=== PATIENT | male | born 1970 | race Caucasian/White ===

== ENCOUNTER 2019-10-08 03:25 | Emergency (ER) | payer MEDICAID, SELFPAY ==
[2019-10-08 03:41] VITALS: BP 125/87; PULSE 71; RESP 16; TEMP 36.6; O2SAT 96; BMI 29.5
[2019-10-08 03:50] VITALS: BMI 29.5
--- NOTE | 2019-10-08 03:51 | CT_ITS ---
PROCEDURE: CT LUMBAR SPINE WO CON CLINICAL HISTORY: numbness Bilateral lower extremity weakness with low back pain and bilateral lower extremity numbness COMPARISON: W CT LUMBAR SPINE W/O CONTRAST from 09/01/2014 TECHNIQUE: Axial images obtained with sagittal and coronal reformats. All CT scans at the facility use one or more dose reduction, viz: automated exposure control, ma/kV adjustment per patient size (including targeted exams where dose is matched to indication, i.e. head), or iterative reconstruction technique. FINDINGS: There is an old T12 compression fracture with degenerative disc disease at T11-T12 and T12-L1 Mild wedging of L2 which appears chronic mild bulging disc L2-L3 Bulging disc at L3-L4 with facet ligamentum hypertrophy with mild bilateral foraminal narrowing and mild bilateral lateral recess narrowing. L4-5: Mild concentric bulging disc with facet ligamentum hypertrophy with mild bilateral lateral recess and foraminal narrowing. L5-S1: Bulging disc with small left paracentral disc protrusion There is partial fusion of the SI joints IMPRESSION: 1. No acute finding. 2. Old healed T12 compression fracture with degenerative changes at T11-T12 and T12-L1 an old mild compression fracture of L2 3. No severe canal stenosis. 4. MRI may provide further evaluation Dictated by: Agus Caal MD 10/08/2019 08:42 Electronically signed by Agus Caal MD in [facility] 10/08/2019 08:42
--- NOTE | 2019-10-08 03:51 | XR_ITS ---
PROCEDURE: XR PELVIS 1-2V CLINICAL INDICATION: numbness Bilateral lower extremity numbness COMPARISON: No exams were available for comparison TECHNIQUE: XR Pelvis AP View FINDINGS: No fracture or dislocation is evident. No significant degenerative change. No lytic or blastic change. IMPRESSION: No acute findings. Dictated by: Agus Caal MD 10/08/2019 06:36 Electronically signed by Agus Caal MD in [facility] 10/08/2019 06:36
--- NOTE | 2019-10-08 03:51 | CT_ITS ---
PROCEDURE: CT HEAD/BRAIN WO CON CLINICAL INDICATION: numbness Bilateral lower extremity weakness and numbness COMPARISON: [facility] CT HEAD W/O CONTRAST from 09/01/2014 TECHNIQUE: Axial images obtained. All CT scans at the facility use one or more dose reduction, viz: automated exposure control, ma/kV adjustment per patient size (including targeted exams where dose is matched to indication, i.e. head), or iterative reconstruction technique. FINDINGS: No midline shift, mass effect, intracranial hemorrhage, hydrocephalus, or extra-axial fluid collection is evident. The calvarium has an unremarkable appearance. No mastoid effusion. No sinus air-fluid level. IMPRESSION: No acute intracranial finding Dictated by: Agus Caal MD 10/08/2019 08:24 Electronically signed by Agus Caal MD in [facility] 10/08/2019 08:24
--- NOTE | 2019-10-08 03:51 | CT_ITS ---
PROCEDURE: CT THORACIC SPINE WO CON CLINICAL HISTORY: numbness Bilateral lower extremity weakness COMPARISON: CTA CTA-CHEST from 12/14/2014 TECHNIQUE: Axial images obtained with sagittal and coronal reformats. All CT scans at the facility use one or more dose reduction, viz: automated exposure control, ma/kV adjustment per patient size (including targeted exams where dose is matched to indication, i.e. head), or iterative reconstruction technique. FINDINGS: Normal alignment. Chronic compression fracture of T12 with degenerative disc disease at T11-T12 No acute fracture. No canal stenosis. There is some facet hypertrophy with foraminal narrowing on the left at T10-T11 IMPRESSION: No acute finding Chronic compression fracture T12 with degenerative disc disease T11-T12 Facet hypertrophy with foraminal narrowing on the left at T10-T11 Dictated by: Agus Caal MD 10/08/2019 08:36 Electronically signed by Agus Caal MD in [place] 10/08/2019 08:36
--- NOTE | 2019-10-08 03:51 | CT_ITS ---
PROCEDURE: CT CERVICAL SPINE WO CON CLINICAL INDICATION: numbness Bilateral lower extremity weakness and numbness COMPARISON: [facility] CT CERVICAL SPINE W/O CONT from 09/01/2014 TECHNIQUE: Axial images obtained with sagittal and coronal reformats. All CT scans at the facility use one or more dose reduction, viz: automated exposure control, ma/kV adjustment per patient size (including targeted exams where dose is matched to indication, i.e. head), or iterative reconstruction technique. Axial spiral CT scanning performed of the cervical spine beginning at the base of the skull and continuing to the upper T-spine. 3-D multiplanar reconstruction with 3-D manipulation of volumetric data set in image rendering was completed by the radiologist and/or technologist with the supervision of the radiologist on independent workstation. FINDINGS: There is straightening/reversal of the normal lordosis which may be due to patient positioning or muscle spasm.. There is degenerative disc disease at C6-C7 with endplate hypertrophic change and borderline canal stenosis. There is mild foraminal narrowing on the left at C4-C5 no fracture or dislocation. Lung apices are clear. IMPRESSION: 1. Mild cervical spondylosis. 2. Borderline canal stenosis at C6-C7 Dictated by: Agus Caal MD 10/08/2019 08:30 Electronically signed by Agus Caal MD in [place] 10/08/2019 08:30
[2019-10-08 04:07] LABS: Basophils # 0.1 K/mm3 (0-0.2); Basophils % 0.6 % (0.1-2.0); Eosinophils % 0.3 % (0.1-12.0); Hematocrit 46.1 % (42.0-52.0); Hemoglobin 15.2 g/dL (14.1-18.0); Lymphocytes # 1.4 K/mm3 (0.7-4.5); Lymphocytes % 17.6 % (10-50); Mean Corpuscular Hemoglobin 30.2 pg (27.0-31.2); Mean Corpuscular Volume 91.5 fl (80-94); Mean Platelet Volume 9.7 fl (7.4-10.4); Monocytes # 0.4 K/mm3 (0.1-1.0); Monocytes % 4.7 % (1.7-9.3); Neutrophils # 6.3 K/mm3 (1.8-7.8); Neutrophils % 76.8 % (37.0-80.0); Platelet Count 195 K/mm3 (142-424); Red Blood Count 5.04 M/mm3 (4.60-6.20); Red Cell Distribution Width 13.6 % (11.5-17.5); White Blood Count 8.2 K/mm3 (4.8-10.8)
[2019-10-08 04:09] LABS: Alanine Aminotransferase 55 U/L (12-78); Albumin Level 5.2 g/dl (3.5-5.0); Albumin/Globulin Ratio 1.2 (1.1-1.8); Alkaline Phosphatase 74 U/L (38-126); Anion Gap 13.1 mEq/L (5-15); Aspartate Amino Transferase 89 U/L (17-59); Bilirubin,Total 0.8 mg/dl (0.2-1.3); Blood Urea Nitrogen 17 mg/dl (9-20); Calcium 10.2 mg/dl (8.4-10.2); Carbon Dioxide 32 mmol/L (22.0-30.0); Chloride 94 mmol/L (98-107); Creatinine Clearance Estimated 113 mL/min (50-200); Estimated Glomerular Filt Rate 79 ml/min (>60); GFR (African American) 96 ML/MIN (>60); Globulin 4.4 g/dL (1.3-3.2); Glucose 134 mg/dl (74-100); Potassium 4.1 mmoL/L (3.5-5.1); Sodium 135 mmol/L (136-145); Total Protein,Serum 9.6 g/dl (6.3-8.2)
--- NOTE | 2019-10-08 04:11 | PC.NURSE ---
sent to rad
--- NOTE | 2019-10-08 04:47 | PC.NURSE ---
back from rad
--- NOTE | 2019-10-08 04:53 | PC.NURSE ---
received head,cspine and t spine at this time. lspine following.
--- NOTE | 2019-10-08 04:54 | PC.NURSE ---
notified of ct results being back
--- NOTE | 2019-10-08 05:02 | HMH.EDBACK ---
ED Disposition Clinical Impression: Cauda equina syndrome Disposition: Home, Self-Care Condition on Discharge: Serious Instructions: Cauda Equina Syndrome Additional Instructions: need to go to for eval Prescriptions: predniSONE [Prednisone 20mg Tab] 20 mg PO BID #10 tab Transmission Status: Pending to [id number] Ketorolac Tromethamine [Toradol 10mg tablet] 10 mg PO Q6H 5 Days #10 tab [facility]: [facility] Referrals: Provider,Referral, [Primary Care Provider] - - Critical Care Critical Care Time: No Attestation: On 10/08/19, the high probability of a clinically significant, sudden or life threatening deterioration of the following system(s) required my full and direct attention, intervention and personal management. The time I documented below is in addition to time spent performing reported procedures but includes the following listed in this critical care notation. Medical Decision Making - Medical Records Medical records reviewed: Yes: I reviewed the patient's medical records. - Baljeet Inquiry Pt receiving controlled substance: No Vital Signs: 10/08/19 03:41 10/08/19 05:06 Temperature 97.9 F Temperature Source Oral Pulse Rate [Right Brachial] 71 48 L Respiratory Rate 16 Blood Pressure [Right Arm] 125/87 124/70 Blood Pressure Mean [Right Arm] 99 88 Blood Pressure Source [Right Arm] Automatic Cuff Automatic Cuff Blood Pressure Position [Right Arm] Sitting Sitting 02 Sat by Pulse Oximetry 96 95 Oxygen Delivery Method Room Air Room Air - Lab Data Lab results reviewed: Yes: I reviewed the patient's lab results. Lab Results 10/08/19 03:45: WBC 8.2, RBC 5.04, Hgb 15.2, Hct 46.1, MCV 91.5, MCH 30.2, MCHC 33.0, RDW 13.6, Plt Count 195, MPV 9.7, Neut % (Auto) 76.8, Lymph % (Auto) 17.6, [place] % (Auto) 4.7, Eos % (Auto) 0.3, Baso % (Auto) 0.6, Neut # (Auto) 6.3, Lymph # (Auto) 1.4, [place] # (Auto) 0.4, Eos # (Auto) 0.0, Baso # (Auto) 0.1 10/08/19 03:45: Sodium 135 L, Potassium 4.1, Chloride 94 L, Carbon Dioxide 32 H, Anion Gap 13.1, BUN 17, Creatinine 1.00, Estimated Creat Clear 113, Estimated GFR 79, Est GFR ( Amer) 96, Glucose 134 H, Calcium 10.2, Total Bilirubin 0.8, AST 89 H, ALT 55, Alkaline Phosphatase 74, Total Protein 9.6 H, Albumin 5.2 H, Globulin 4.4 H, Albumin/Globulin Ratio 1.2 Result diagrams: 10/08/19 03:45 10/08/19 03:45 Orders (Tests/Meds): ED MEDICATIONS Generic Name Dose Route Start Last Admin Trade Name Freq PRN Reason Stop Dose Admin Ketorolac Tromethamine 30 mg 10/08/19 05:21 Toradol 30mg/Ml Vial IV 10/08/19 05:22 ONCE ONE Methylprednisolone Sodium Succinate 125 mg 10/08/19 05:21 Solu-Medrol 125mg/2ml Vial IV 10/08/19 05:22 ONCE ONE ORDERS Category Date Time Status CT cervical spine wo con Stat Cat Scan 10/08/19 03:[address] head/brain wo con Stat Cat Scan 10/08/19 03:[address] lumbar spine wo con Stat Cat Scan 10/08/19 03:[address] thoracic spine wo con Stat Cat Scan 10/08/19 03:51 Taken XR pelvis 1-2V Stat Exams 10/08/19 03:51 Taken - Radiology Data #1 Image(s): Pelvis Image Reviewed: Yes I reviewed the patient's radiology image Preliminary Findings: Normal/NAD - CT Data CT Scan: Head, C-Spine, T-Spine, L-Spine Time Received: 05:[address] Reviewed: Yes: I have viewed the radiologist's interpretation Preliminary Findings: Normal/NAD (no def acute changes ) Back Pain HPI - General Chief Complaint: Back Pain/Injury Stated Complaint: numbness in bilateral legs, unable to walk Time Seen by Provider: 10/08/19 04:30 Mode of Arrival: Wheelchair Source of Information: Patient, Medical Record Limitations: No Limitations Description of Symptoms (Recalled from ER Triage Doc. by RN): Patient reports bilateral leg weakness/tingling that started about three hours ago. Patient reports this has happened a couple of times in the last couple months, last one bein
[2019-10-08 05:06] VITALS: BP 124/70; PULSE 48; O2SAT 95
[2019-10-08 05:30] VITALS: BP 133/89; PULSE 60; O2SAT 96
--- NOTE | 2019-10-08 05:35 | PC.NURSE ---
Patient refused transfer to [facility]
[2019-10-08 05:48] VITALS: BP 138/89; PULSE 62; RESP 16; TEMP 36.6; O2SAT 96
[2019-10-08 06:05] LABS: C-Reactive Protein 51.5 mg/L (0-4)
[2019-10-08 06:18] LABS: Erythrocyte Sedimentation Rate 8 mm/hr (0-15)
== END 2019-10-08 05:58 | disposition home or self-care (01) ==
PROVIDERS: Emergency Provider Emergency Medicine
DX: G83.4 Cauda equina syndrome (principal)
CPT/HCPCS: 70450; 72125; 72128; 72131; 72170; 80053; 85025; 85651; 86140; 96374; 96375; 99283

== ENCOUNTER 2020-09-24 14:08 | Emergency (ER) | payer BC, SELFPAY ==
[2020-09-24 14:10] VITALS: BP 129/93; PULSE 79; RESP 18; TEMP 36.9; O2SAT 97; BMI 28.8
--- NOTE | 2020-09-24 14:16 | HMH.EDGENADL ---
ED Disposition Clinical Impression: Transaminitis, Drug abuse Chest pain Qualifiers: Chest pain type: other chest pain Qualified Code(s): R07.89 - Other chest pain Disposition: Home, Self-Care Condition on Discharge: Good Additional Instructions: Call your PCP in the morning for follow-up appointment. Avoid illicit drugs. Return emergency department for chest pain, shortness of breath. Referrals: Sylvain Juarez MD [Primary Care Provider] - 09/25/20 8:30 am (Call your PCP for follow-up appointment.) - Critical Care Critical Care Time: No Attestation: On 09/24/20, the high probability of a clinically significant, sudden or life threatening deterioration of the following system(s) required my full and direct attention, intervention and personal management. The time I documented below is in addition to time spent performing reported procedures but includes the following listed in this critical care notation. Medical Decision Making - Medical Records Medical records reviewed: Yes: I reviewed the patient's medical records. - Baljeet Inquiry Pt receiving controlled substance: No Vital Signs: 09/24/20 14:10 Temperature 98.4 F Temperature Source Oral Pulse Rate [Right] 79 Respiratory Rate 18 Blood Pressure [Right Arm] 129/93 H Blood Pressure Mean [Right Arm] 105 Blood Pressure Source [Right Arm] Automatic Cuff Blood Pressure Position [Right Arm] Sitting 02 Sat by Pulse Oximetry 97 Oxygen Delivery Method Room Air - Lab Data Lab results reviewed: Yes: I reviewed the patient's lab results. Lab Results 09/24/20 14:52: WBC 10.8, RBC 4.88, Hgb 14.6, Hct 42.0, MCV 86.0, MCH 30.0, MCHC 34.8, RDW 13.4, Plt Count 161, MPV 8.8, Neut % (Auto) 75.0, Lymph % (Auto) 17.6, [place] % (Auto) 5.8, Eos % (Auto) 0.7, Baso % (Auto) 0.9, Neut # (Auto) 8.1 H, Lymph # (Auto) 1.9, [place] # (Auto) 0.6, Eos # (Auto) 0.1, Baso # (Auto) 0.1 09/24/20 14:52: Sodium 136, Potassium 4.5, Chloride 97 L, Carbon Dioxide 30, Anion Gap 13.5, BUN 18, Creatinine 0.70, Estimated Creat Clear 156, Estimated GFR 119, Est GFR ( Amer) 144, Glucose 110 H, Calcium 9.0, Total Bilirubin 1.5 H, AST 171 H, ALT 195 H, Alkaline Phosphatase 81, Troponin I < 0.01, Total Protein 8.4 H, Albumin 4.7, Globulin 3.7 H, Albumin/Globulin Ratio 1.3 09/24/20 15:00: Urine Color Yellow, Urine Appearance Clear, Urine pH 5.5, Ur Specific [place] 1.020, Urine Protein Negative, Urine Glucose (UA) Negative, Urine Ketones Negative, Urine Blood Negative, Urine Nitrate Negative, Urine Bilirubin Negative, Urine Urobilinogen 2.0, Ur Leukocyte Esterase Negative, Urine RBC None, Urine WBC Occasional, Ur Squamous Epith Cells Occasional, Urine Bacteria Trace Result diagrams: 09/24/20 14:52 09/24/20 14:52 Orders (Tests/Meds): ORDERS Category Date Time Status XR chest portable Stat Exams 09/24/20 15:51 Taken Hepatitis Panel (4) Stat Lab 09/24/20 14:52 Received - Radiology Data #1 Image(s): Chest Image Reviewed: Yes I reviewed the patient's radiology image Preliminary Findings: Normal/NAD - ECG Data Tracing #1 Normal sinus rhythm, 61 bpm, no ST elevation or depression, no ectopy, normal intervals. Interpreted by me at 1445. ECG initial impression date: 09/24/20 ECG initial impression time: 14:45 - JOSE Score for Non-Stemi Age of Patient: 50-59 years old Heart Rate: 70-89 bpm Systolic Blood Pressure: 120-139 mmhg Serum Creatinine: 0.40-0.79 mg/dl CHF [place] Class: I-No CHF Other Risk Factors: None Non-Stemi Risk Score: 88 Medical Decision Narrative: 49yo M eval with complaint of chest pain. Patient is asymptomatic currently. Differential diagnosis includes was not limited to: ACS/TX, PE, pneumonia, anxiety, cardiomyopathy secondary to drug use or infection. Routine cardiac evaluation has been initiated. Patient initially checked in with symptoms of syncope. He denies any complaint of that upon my evaluation. Patient was sent for a CT of his head but he dec
--- NOTE | 2020-09-24 14:43 | ECG_ITS ---
APPROVED REPORT Exam: Resting ECG HR:67 bpm ECG Measurements Heart Rate 67 AXES AR 192 P 57 QRSd 92 QRS 49 QT 422 T 52 QTc 445 Conclusion Normal sinus rhythm Normal ECG Electronically signed by : Vincent Kelly, 09/26/2020 17:40:22
--- NOTE | 2020-09-24 14:58 | PC.NURSE ---
pt refusing CT scan, ER aware
[2020-09-24 15:05] LABS: Basophils # 0.1 K/mm3 (0-0.2); Basophils % 0.9 % (0.1-2.0); Eosinophils # 0.1 K/mm3 (0.0-0.4); Eosinophils % 0.7 % (0.1-12.0); Hemoglobin 14.6 g/dL (14.1-18.0); Lymphocytes # 1.9 K/mm3 (0.7-4.5); Lymphocytes % 17.6 % (10-50); Mean Corpuscular HGB Conc 34.8 g/dL (31.8-35.4); Mean Platelet Volume 8.8 fl (7.4-10.4); Monocytes # 0.6 K/mm3 (0.1-1.0); Monocytes % 5.8 % (1.7-9.3); Neutrophils # 8.1 K/mm3 (1.8-7.8); Platelet Count 161 K/mm3 (142-424); Red Blood Count 4.88 M/mm3 (4.60-6.20); Red Cell Distribution Width 13.4 % (11.5-17.5); White Blood Count 10.8 K/mm3 (4.8-10.8)
[2020-09-24 15:05] LABS: Microscopic, Urine URINE MICROSCOPIC (MICROSCOPIC)
[2020-09-24 15:09] LABS: Chloride 97 mmol/L (98-107); Potassium 4.5 mmoL/L (3.5-5.1); Sodium 136 mmol/L (136-145)
[2020-09-24 15:11] LABS: Alanine Aminotransferase 195 U/L (12-78); Blood Urea Nitrogen 18 mg/dl (9-20); Creatinine Clearance Estimated 156 mL/min (50-200); Estimated Glomerular Filt Rate 119 ml/min (>60); GFR (African American) 144 ML/MIN (>60)
[2020-09-24 15:12] LABS: Albumin Level 4.7 g/dl (3.5-5.0); Albumin/Globulin Ratio 1.3 (1.1-1.8); Alkaline Phosphatase 81 U/L (38-126); Anion Gap 13.5 mEq/L (5-15); Aspartate Amino Transferase 171 U/L (17-59); Bilirubin,Total 1.5 mg/dl (0.2-1.3); Carbon Dioxide 30 mmol/L (22.0-30.0); Globulin 3.7 g/dL (1.3-3.2); Glucose 110 mg/dl (74-100); Total Protein,Serum 8.4 g/dl (6.3-8.2)
[2020-09-24 15:17] LABS: Appearance,Urine CLEAR (Clear); Bilirubin,Urine Negative (Negative); Blood, Urine Negative (Negative); Color,Urine YELLOW (Yellow); Glucose,Urine (UA) Negative (Negative); Ketones,Urine Negative (Negative); Leukocyte Esterase,Urine Negative (Negative); Nitrate,Urine Negative (Negative); PH,Urine 5.5 (5.0-8.5); Protein,Urine Negative (Negative)
[2020-09-24 15:26] LABS: Troponin I < 0.01 ng/ml (0.00-0.034)
--- NOTE | 2020-09-24 15:51 | XR_ITS ---
PROCEDURE: XR CHEST PORTABLE CLINICAL HISTORY: PAIN Chest pain COMPARISON: CR CXR CHEST(2 VIEWS-NOT PORTABLE) from 12/13/2014 CT CTAC CTA-CHEST from 12/14/2014 CR CXR CHEST(2 VIEWS-NOT PORTABLE) from 05/04/2015 FINDINGS: The cardiomediastinal silhouette and pulmonary vascularity are within normal limits. The lungs are clear without infiltrates, suspicious nodules, or pleural effusions. No acute bony abnormalities. IMPRESSION: No acute findings. Dictated by: Agus Caal MD 09/24/2020 17:06 Agus Caal MD in [facility] 09/24/2020 17:06
[2020-09-24 16:38] LABS: Bacteria,Urine Trace /lpf; Squamous Epithelial Cell,Urine Occasional #/hpf (0-5); WBC,Urine Occasional #/hpf (0-3)
[2020-09-24 16:46] VITALS: BP 152/96; PULSE 67; RESP 16; TEMP 36.7; O2SAT 98
[2020-09-26 09:13] LABS: Hep A Ab, IgM Negative (Negative); Hepatitis B Core Antibody IgM Negative (Negative); Hepatitis B Surface Antigen Negative (Negative); Hepatitis C Antibody >11.0 s/co ratio (0.0-0.9)
== END 2020-09-24 16:48 | disposition home or self-care (01) ==
PROVIDERS: Emergency Provider Family Medicine; PCP Emergency Medicine
DX: R42 Dizziness and giddiness (principal); R07.89 Other chest pain; R74.01 Elevation of levels of liver transaminase levels; F10.10 Alcohol abuse, uncomplicated; F19.10 Other psychoactive substance abuse, uncomplicated; F17.210 Nicotine dependence, cigarettes, uncomplicated
CPT/HCPCS: 71045; 80053; 80074; 81001; 84484; 85025; 93005; 99283

== ENCOUNTER 2020-10-24 08:56 | Emergency (ER) | payer BC, SELFPAY ==
--- NOTE | 2020-10-24 | FL_ITS ---
Fluoroscopy: Fluoroscopy was used to assist emergency room physician and removal of the remaining tiny opaque fragment of glass dorsal to the PIP joint ring finger. Fluoroscopic spot film following the procedure showed no foreign body remaining. Fluoroscopy time was 47 seconds. Dictated by: Dr. Remberto Bishop MD 10/24/2020 11:47 Dr. Remberto Bishop MD in [facility] 10/24/2020 11:47
[2020-10-24 09:02] VITALS: BP 137/84; PULSE 69; RESP 18; TEMP 36.8; O2SAT 95; BMI 28.8
--- NOTE | 2020-10-24 09:06 | XR_ITS ---
PROCEDURE: XR HAND RT 2V CLINICAL INDICATION: injury COMPARISON: CR XR HAND RT 2V from 10/24/2020 FINDINGS: No fracture or dislocation. No lytic or blastic change. There is normal mineralization. The joint spaces are well-preserved. There is focal soft tissue swelling dorsally the PIP joint of the 4th finger. There is a semiopaque foreign body just dorsal to the PIP. Carpal bones appear intact IMPRESSION: Semi opaque foreign body associated soft tissue swelling dorsal aspect 4th finger, no acute fracture seen Dictated by: Dr. Remberto Bishop MD 10/24/2020 10:13 Dr. Remberto Bishop MD in [facility] 10/24/2020 10:13
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
--- NOTE | 2020-10-24 09:46 | XR_ITS ---
PROCEDURE: XR HAND RT 2V CLINICAL INDICATION: repeat for glass COMPARISON: Right hand same date FINDINGS: The main fragment of the foreign body has been removed with tiny densities remain at the dorsal aspect of the PIP joint. IMPRESSION: Tiny fragment of foreign body remaining following attempted removal Dictated by: Dr. Remberto Bishop MD 10/24/2020 10:14 Dr. Remberto Bishop MD in [facility] 10/24/2020 10:14
--- NOTE | 2020-10-24 10:01 | XR_ITS ---
PROCEDURE: XR FINGER RT MIN 2V CLINICAL INDICATION: FB COMPARISON: CR XR HAND RT 2V from 10/24/2020 FINDINGS: On the 2nd attempt there is a small faint foreign body remaining along with the diffuse soft tissue swelling. IMPRESSION: Tiny fragment foreign body apparently due to class remaining after the 2nd attempt of removal Dictated by: Dr. Remberto Bishop MD 10/24/2020 10:20 Dr. Remberto Bishop MD in [facility] 10/24/2020 10:20
--- NOTE | 2020-10-24 10:36 | XR_ITS ---
PROCEDURE: XR FINGER RT MIN 2V CLINICAL INDICATION: removal of glass COMPARISON: Right hand and earlier attempts at foreign body removal same date FINDINGS: The same 2 tiny semiopaque fragments of glass remain unchanged the previous studies. Focal soft tissue swelling is again noted. There is no underlying bony IMPRESSION: Two persistent tiny fragments of glass remaining after additional attempted foreign body removal Dictated by: Dr. Remberto Bishop MD 10/24/2020 10:48 Dr. Remberto Bishop MD in [facility] 10/24/2020 10:48
--- NOTE | 2020-10-24 10:57 | PC.NURSE ---
Called office which is off for the time being. States that he will return this afternoon for pt care. notified
[2020-10-24 10:58] VITALS: BP 118/65; PULSE 83; RESP 18; O2SAT 100
--- NOTE | 2020-10-24 11:00 | PC.NURSE ---
Pt with MD to radiology for fluro to remove glass particles from finger. CPD present with pt
[2020-10-24 11:52] VITALS: BP 156/77; PULSE 58; RESP 16; TEMP 36.6; O2SAT 97
--- NOTE | 2020-10-30 10:58 | PC.NURSE ---
attempted to call pt at number listed on chart, wrong number per person that answered.
--- NOTE | 2020-10-30 11:19 | PC.NURSE ---
attempted to call the other number listed on pts chart, no answer and no voicemail.
== END 2020-10-24 11:55 ==
PROVIDERS: Emergency Provider Emergency Medicine
DX: S61.244A Puncture wound with foreign body of right ring finger without damage to nail, initial encounter (principal); W22.8XXA Striking against or struck by other objects, initial encounter; Y92.69 Other specified industrial and construction area as the place of occurrence of the external cause; Y99.0 Civilian activity done for income or pay; Z23 Encounter for immunization
CPT/HCPCS: 20520; 73120; 73140; 76000; 87070; 87077; 87186; 87205; 90715; 99283

== ENCOUNTER 2020-12-04 09:44 | Emergency (ER) | payer BC, SELFPAY ==
--- NOTE | 2020-12-04 09:35 | ECG_ITS ---
APPROVED REPORT Exam: Resting ECG HR:53 bpm ECG Measurements Heart Rate 53 AXES IA 194 P 55 QRSd 90 QRS 87 QT 456 T 56 QTc 427 Conclusion Sinus bradycardia Otherwise normal ECG Electronically signed by : Vincent Kelly MD 12/05/2020 17:44:47
[2020-12-04 09:45] VITALS: RESP 14; TEMP 36.8; O2SAT 96; BMI 27.3
--- NOTE | 2020-12-04 10:04 | XR_ITS ---
PROCEDURE: XR CHEST PORTABLE CLINICAL HISTORY: chest pain COMPARISON: CR CXR CHEST(2 VIEWS-NOT PORTABLE) from 12/13/2014 CT [facility]AC CTA-CHEST from 12/14/2014 CR CXR CHEST(2 VIEWS-NOT PORTABLE) from 05/04/2015 CR XR CHEST PORTABLE from 09/24/2020 FINDINGS: The cardiomediastinal silhouette and pulmonary vascularity are within normal limits. The lungs are clear without infiltrates, suspicious nodules, or pleural effusions. No acute bony abnormalities. IMPRESSION: No acute findings. Dictated by: Agus Caal MD 12/04/2020 12:04 Agus Caal MD in [facility] 12/04/2020 12:04
[2020-12-04 10:13] LABS: Basophils # 0.1 K/mm3 (0-0.2); Basophils % 1.7 % (0.1-2.0); Eosinophils # 0.3 K/mm3 (0.0-0.4); Hematocrit 46.6 % (42.0-52.0); Hemoglobin 15.4 g/dL (14.1-18.0); Lymphocytes # 1.6 K/mm3 (0.7-4.5); Lymphocytes % 31.6 % (10-50); Mean Corpuscular Hemoglobin 30.6 pg (27.0-31.2); Mean Corpuscular Volume 92.7 fl (80-94); Mean Platelet Volume 9.7 fl (7.4-10.4); Monocytes # 0.5 K/mm3 (0.1-1.0); Monocytes % 9.1 % (1.7-9.3); Neutrophils # 2.6 K/mm3 (1.8-7.8); Neutrophils % 52.7 % (37.0-80.0); Platelet Count 191 K/mm3 (142-424); Red Blood Count 5.03 M/mm3 (4.60-6.20); Red Cell Distribution Width 13.9 % (11.5-17.5); White Blood Count 4.9 K/mm3 (4.8-10.8)
[2020-12-04 10:19] LABS: Chloride 104 mmol/L (98-107); Potassium 3.9 mmoL/L (3.5-5.1); Sodium 138 mmol/L (136-145)
[2020-12-04 10:21] LABS: Alanine Aminotransferase 184 U/L (12-78); Aspartate Amino Transferase 147 U/L (17-59); Blood Urea Nitrogen 8 mg/dl (9-20); Creatinine Clearance Estimated 171 mL/min (50-200); Estimated Glomerular Filt Rate 141 ml/min (>60); GFR (African American) 171 ML/MIN (>60)
[2020-12-04 10:22] LABS: Albumin Level 4.2 g/dl (3.5-5.0); Albumin/Globulin Ratio 1.2 (1.1-1.8); Alkaline Phosphatase 75 U/L (38-126); Anion Gap 12.9 mEq/L (5-15); Bilirubin,Total 0.6 mg/dl (0.2-1.3); Calcium 8.9 mg/dl (8.4-10.2); Carbon Dioxide 25 mmol/L (22.0-30.0); Globulin 3.6 g/dL (1.3-3.2); Glucose 130 mg/dl (74-100); Magnesium 1.7 mg/dl (1.6-2.3); Phosphorous 2.7 mg/dl (2.5-4.5); Total Protein,Serum 7.8 g/dl (6.3-8.2)
[2020-12-04 10:35] LABS: Troponin I < 0.01 ng/ml (0.00-0.034)
--- NOTE | 2020-12-04 10:58 | PC.NURSE ---
Patient asked how much longer it would be. I explained to him we have to redraw his troponin at the 3 hour jesus to trend them and ensure he isn't having a NSTEMI. Patient stated, 3 hours? I dont have time for that. I have bills i need to go pay and things to do today. I have to leave. I confirmed the patient knew the risks of signing out and that he could be having a cardiac event that would only show up on the lab work at the 3 hour jesus. Patient advised he knows and wants the AMA paperwork. Patient signed out AMA.
[2020-12-04 11:31] VITALS: BP 00/00; PULSE 0; RESP 0; TEMP -17.7; TEMP 0; O2SAT 0
== END 2020-12-04 11:00 | disposition left against medical advice (07) ==
PROVIDERS: Emergency Provider Emergency Medicine
DX: Z53.21 Procedure and treatment not carried out due to patient leaving prior to being seen by health care provider (principal)
CPT/HCPCS: 71045; 80053; 83735; 84100; 84484; 85025; 93005; 99283

== ENCOUNTER 2021-12-02 18:10 | Emergency (ER) | payer BC, SELFPAY ==
[2021-12-02 18:23] VITALS: BMI 27.3
--- NOTE | 2021-12-02 18:23 | PC.NURSE ---
pt waiting in lobby on available bed in ER, pt verbalized understanding
[2021-12-02 19:32] VITALS: BP 0/0; PULSE 0; RESP 0; TEMP -17.7; TEMP 0
== END 2021-12-02 19:39 | disposition left against medical advice (07) ==
LOC: ER 19:38
PROVIDERS: Emergency Provider Emergency Medicine; PCP Family Medicine
DX: Z53.21 Procedure and treatment not carried out due to patient leaving prior to being seen by health care provider (principal)

== ENCOUNTER 2022-11-25 11:08 | Emergency (ER) | payer BC, SELFPAY ==
--- NOTE | 2022-11-25 11:07 | ECG_ITS ---
APPROVED REPORT Exam: Resting ECG HR:62 bpm ECG Measurements Heart Rate 62 AXES MA 201 P 68 QRSd 96 QRS 51 QT 435 T 58 QTc 441 Conclusion SINUS RHYTHM NORMAL ECG UNCONFIRMED REPORT Electronically signed by : Vincent Kelly MD 11/25/2022 19:41:13
[2022-11-25 11:10] VITALS: BP 115/96; PULSE 63; RESP 20; TEMP 36.8; O2SAT 98; BMI 28.8
--- NOTE | 2022-11-25 11:30 | XR_ITS ---
PROCEDURE INFORMATION: Exam: XR Chest Exam date and time: 11/25/2022 11:44 AM Age: 51 years old Clinical indication: Dyspnea TECHNIQUE: Imaging protocol: Radiologic exam of the chest. Views: 1 view. COMPARISON: CR XR CHEST PORTABLE 12/04/2020 10:17 AM FINDINGS: Lungs: Unremarkable. No consolidation. Pleural spaces: Unremarkable. No pleural effusion. No pneumothorax. Heart/Mediastinum: Unremarkable. No cardiomegaly. Bones/joints: Unremarkable for age. IMPRESSION: Negative chest exam.
[2022-11-25 11:31] VITALS: BP 121/67; PULSE 60; O2SAT 96
--- NOTE | 2022-11-25 11:31 | HMH.EDGENADL ---
Discharge Plan Disposition Patient Disposition: Home, Self-Care Prescriptions Prescriptions: No Action prednisone 20 MG tablet 20 mg PO BID Qty: 10 0RF ketorolac 10 MG tablet 10 mg PO Q6H 5 Days Qty: 10 0RF ibuprofen 800 MG tablet 800 mg PO Q8HP PRN (Reason: Moderate Pain) Qty: 15 0RF cephalexin 500 MG capsule 500 mg PO Q6H Qty: 28 0RF Referrals Follow up/Referrals: Sylvain Juarez MD [Primary Care Provider] - See instructions Activity Restrictions/Add. Instructions Additional Instructions/Restrictions: Please follow-up with your primary care doctor regarding your chest pain and shortness of breath. You did have chronic transaminase elevation and a known diagnosis of hepatitis C. Given fib 4 score of 5.36 which suggests advanced fibrosis and it is very important you follow-up with a retail area manager or survey project manager to get your hepatitis C treated and to have a further surveillance of your liver fibrosis. Clinical Impressions Clinical Impression: Dyspnea, Atypical chest pain, Transaminitis, HCV (hepatitis C virus), Fibrosis of liver Discharge ED Provider: Minnie Kelly General Adult HPI General Chief complaint: Chest Pain Stated complaint: Chest Pain, SOA Time Seen by Provider: 11/25/22 11:19 Mode of Arrival: Ambulatory Source of Information: Patient Limitations: No Limitations Description of Symptoms (Recalled from ER Triage Doc. by RN): pt to ed c/o center chest pain that started this morning. pt reports the pain is squeezing in nature. pt denies n/v/d. History of Present Illness HPI narrative: 51-year-old male here with chest pain and shortness of breath. Tells me he was here visiting his mother in the hospital and he states that he has been having some chest discomfort and dyspnea over the last 2 to 3 days and decided to get checked out. Denies any exertional component any radiation any nausea and diaphoresis associated with this. No history of heart or lung disease that he is aware of. Does have an extensive history of smoking but stopped smoking 2 weeks ago. No wheezing cough fevers chills. No lower extremity edema PND orthopnea. No history of congestive heart failure. Only other symptom that he endorses some fatigue. Related Data Previous Rx's Medication Instructions Recorded ketorolac 10 mg tablet 10 mg PO Q6H 5 days #10 tabs 10/08/19 prednisone 20 mg tablet 20 mg PO BID #10 tabs 10/08/19 cephalexin 500 mg capsule 500 mg PO Q6H #28 caps 10/24/20 ibuprofen 800 mg tablet 800 mg PO Q8HP PRN Moderate Pain 10/24/20 #15 tabs Allergies Allergy/AdvReac Type Severity Reaction Status Date / Time No Known Allergies Allergy Verified 10/08/19 03:57 [facility] Disclaimer: The information contained in this section may have been updated after the patient was seen, as this information can be updated by other users. Social History Smoking Status: Current every day smoker tobacco type: cigarettes packs per day: 2 alcohol intake: never current occupational status: employed Travel in the last 8 weeks: None ROS Obtained: Yes All systems reviewed & no additional complaints except as documented Physical Exam General General appearance: alert and in no apparent distress Respiratory Respiratory exam: Present normal lung sounds bilaterally Cardiovascular Cardiovascular exam: Present regular rate; Absent tachycardia Neurological Exam Neurological exam: Present alert and oriented X3 Medical Decision Making Baljeet Inquiry Pt receiving controlled substance: No Vital Signs: 11/25/22 11:10 11/25/22 11:31 11/25/22 12:00 Temperature 98.3 F Temperature Source Oral Pulse Rate 60 62 Pulse Rate [Left Radial] 63 Respiratory Rate 20 Blood Pressure 121/67 125/83 Blood Pressure [Right Arm] 115/96 H Blood Pressure Mean 85 97 Blood Pressure Mean [Right Arm] 102 02 Sat by Pulse Oximetry 98 96 98 Oxygen Delivery Method Room Air 11/25/22 12:31 11/25/22
[2022-11-25 11:42] LABS: Basophils # 0.1 K/mm3 (0-0.2); Basophils % 1.8 % (0.1-2.0); Eosinophils # 0.3 K/mm3 (0.0-0.4); Hematocrit 48.2 % (42.0-52.0); Hemoglobin 15.6 g/dL (14.1-18.0); Lymphocytes # 1.7 K/mm3 (0.7-4.5); Lymphocytes % 34.4 % (10-50); Mean Corpuscular HGB Conc 32.4 g/dL (31.8-35.4); Mean Corpuscular Hemoglobin 30.7 pg (27.0-31.2); Mean Corpuscular Volume 94.6 fl (80-94); Mean Platelet Volume 10.1 fl (7.4-10.4); Monocytes # 0.5 K/mm3 (0.1-1.0); Monocytes % 9.5 % (1.7-9.3); Neutrophils # 2.4 K/mm3 (1.8-7.8); Neutrophils % 48.4 % (37.0-80.0); Platelet Count 130 K/mm3 (142-424); Red Blood Count 5.09 M/mm3 (4.60-6.20); Red Cell Distribution Width 13.4 % (11.5-17.5)
[2022-11-25 11:47] LABS: Chloride 102 mmol/L (98-107); Potassium 4.1 mmoL/L (3.5-5.1); Sodium 140 mmol/L (136-145)
[2022-11-25 11:49] LABS: Alanine Aminotransferase 229 U/L (12-78); Aspartate Amino Transferase 199 U/L (17-59); Blood Urea Nitrogen 13 mg/dl (9-20); Creatinine Clearance Estimated 153 mL/min (50-200); Estimated Glomerular Filt Rate 118 ml/min (>60); GFR (African American) 143 ML/MIN (>60)
[2022-11-25 11:50] LABS: Albumin Level 4.2 g/dl (3.5-5.0); Alkaline Phosphatase 82 U/L (38-126); Anion Gap 14.1 mEq/L (5-15); Bilirubin,Total 0.9 mg/dl (0.2-1.3); Calcium 9.3 mg/dl (8.4-10.2); Carbon Dioxide 28 mmol/L (22.0-30.0); Globulin 4.2 g/dL (1.3-3.2); Glucose 106 mg/dl (74-100); Total Protein,Serum 8.4 g/dl (6.3-8.2)
[2022-11-25 11:57] LABS: D-Dimer 0.31 ug/mL (0.0-0.5)
[2022-11-25 12:00] VITALS: BP 125/83; PULSE 62; O2SAT 98
[2022-11-25 12:00] LABS: NT Pro Brain Natriuretic Pep. 131 pg/mL (0-125)
[2022-11-25 12:02] LABS: Troponin I < 0.01 ng/ml (0.00-0.034)
[2022-11-25 12:31] VITALS: BP 126/75; PULSE 55; RESP 11; O2SAT 97
[2022-11-25 13:00] VITALS: BP 130/73; PULSE 57; O2SAT 95
[2022-11-25 13:15] VITALS: BP 129/74; PULSE 61; RESP 20; TEMP 36.8; O2SAT 97
== END 2022-11-25 13:15 | disposition home or self-care (01) ==
PROVIDERS: Emergency Provider Student in an Organized Health Care Education/Training Program; PCP Emergency Medicine
DX: R07.9 Chest pain, unspecified (principal); R06.02 Shortness of breath; B19.20 Unspecified viral hepatitis C without hepatic coma; K74.00 Hepatic fibrosis, unspecified; F17.210 Nicotine dependence, cigarettes, uncomplicated
CPT/HCPCS: 71045; 80053; 83880; 84484; 85025; 85378; 93005; 99285

== ENCOUNTER 2022-12-16 21:11 | Emergency (ER) | payer BC, SELFPAY ==
[2022-12-16 21:24] VITALS: BP 124/64; PULSE 64; RESP 16; TEMP 36.8; O2SAT 98; BMI 28.8
--- NOTE | 2022-12-16 21:43 | HMH.EDGENADL ---
Discharge Plan Disposition Patient Disposition: Home, Self-Care Condition: Good Prescriptions Prescriptions: New sulfamethoxazole-trimethoprim [Bactrim DS] 800-160 mg tablet 1 tab PO BID 14 Days Qty: 28 0RF No Action prednisone 20 MG tablet 20 mg PO BID Qty: 10 0RF ketorolac 10 MG tablet 10 mg PO Q6H 5 Days Qty: 10 0RF ibuprofen 800 MG tablet 800 mg PO Q8HP PRN (Reason: Moderate Pain) Qty: 15 0RF cephalexin 500 MG capsule 500 mg PO Q6H Qty: 28 0RF Referrals Follow up/Referrals: Provider,Referral, MD [Primary Care Provider] - See instructions Activity Restrictions/Add. Instructions Additional Instructions/Restrictions: You were evaluated in the emergency department today. 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 Follow-up with your primary care provider over the next 3 days for reassessment. Return to the emergency department for new or worsening symptoms. Clinical Impressions Clinical Impression: Abdominal abscess Instructions Patient Instructions: DI for Skin Abscess Discharge ED Provider: Vero Leal General Adult HPI General Chief complaint: Skin/Abscess/Foreign Body Stated complaint: Bite by spider infected Time Seen by Provider: 12/16/22 21:28 Mode of Arrival: Ambulatory Source of Information: Patient Limitations: No Limitations Description of Symptoms (Recalled from ER Triage Doc. by RN): pt states he has a spider bit on his abd. pt reports he thinks it was a brown recluse but did not see the spider. the area is on his LLQ with erythema, edema, and purulent drainage. pt reports x5d. pt was seen at a [facility] on Dec.09 for the same thing. History of Present Illness HPI narrative: This patient is a 52-year-old male with a history of hepatitis C and drug abuse presenting to the emergency department for evaluation with concern for spider bite to his left lower quadrant of his abdomen. He states that he has had erythema, edema, and purulent drainage. This has been going on for 5 days. On chart review, the patient was seen at [facility] on 12/09/2022 for similar issues. He states that he was prescribed Keflex, which he has been compliant with, however it has not gotten any better. He denies any systemic symptoms, such as fevers, chills, or other concerns. Related Data Previous Rx's Medication Instructions Recorded ketorolac 10 mg tablet 10 mg PO Q6H 5 days #10 tabs 10/08/19 prednisone 20 mg tablet 20 mg PO BID #10 tabs 10/08/19 cephalexin 500 mg capsule 500 mg PO Q6H #28 caps 10/24/20 ibuprofen 800 mg tablet 800 mg PO Q8HP PRN Moderate Pain 10/24/20 #15 tabs sulfamethoxazole 800 1 tab PO BID 14 days #28 tabs 12/16/22 mg-trimethoprim 160 mg tablet (Bactrim DS) Allergies Allergy/AdvReac Type Severity Reaction Status Date / Time No Known Allergies Allergy Verified 10/08/19 03:57 [facility] Disclaimer: The information contained in this section may have been updated after the patient was seen, as this information can be updated by other users. Social History Smoking Status: Current every day smoker tobacco type: cigarettes packs per day: 2 alcohol intake: never current occupational status: employed Travel in the last 8 weeks: None ROS Obtained: Yes All systems reviewed & no additional complaints except as documented Physical Exam General General appearance: alert and in no apparent distress Head Head exam: atraumatic and normocephalic Eye Eye exam: Present normal appearance, PERRL and EOMI ENT ENT exam: Present normal exam, normal oropharynx, mucous membranes moist and normal external ear exam Neck Neck exam: Present normal inspection, full ROM and trachea midline; Absent tenderness Chest Chest inspection: Present normal inspection and symmetric chest wall rise; Absent tenderness Respirat
[2022-12-16 21:48] VITALS: BP 129/74; PULSE 60; RESP 20; TEMP 36.6
== END 2022-12-16 21:50 | disposition home or self-care (01) ==
PROVIDERS: Emergency Provider Emergency Medicine
DX: L02.211 Cutaneous abscess of abdominal wall (principal); S30.861S Insect bite (nonvenomous) of abdominal wall, sequela; W57.XXXS Bitten or stung by nonvenomous insect and other nonvenomous arthropods, sequela; F17.210 Nicotine dependence, cigarettes, uncomplicated; B19.20 Unspecified viral hepatitis C without hepatic coma
CPT/HCPCS: 99284

== ENCOUNTER → 2022-12-29 01:10 | Outpatient (CLI) | payer BC, SELFPAY | PROVIDERS: PCP Nurse Practitioner Family; Visit Provider Nurse Practitioner Family | DX: R05.9 Cough, unspecified (principal); R09.89 Other specified symptoms and signs involving the circulatory and respiratory systems; R53.83 Other fatigue | CPT/HCPCS: 87635 ==

== ENCOUNTER 2023-04-13 14:00 | Emergency (ER) | payer BC, SELFPAY ==
[2023-04-13 14:02] VITALS: BP 141/63; PULSE 50; RESP 18; TEMP 36.7; O2SAT 99; BMI 27.3
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
--- NOTE | 2023-04-13 14:31 | PC.NURSE ---
Pt returned from RAD
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
--- NOTE | 2023-04-13 15:50 | PC.NURSE ---
Rounded on pt. No needs voiced at this time. Call light within reach.
[2023-04-13 15:51] VITALS: BP 103/62; PULSE 53; O2SAT 97
[2023-04-13 16:23] VITALS: BP 110/68; PULSE 52; RESP 18; TEMP 36.7; O2SAT 99
== END 2023-04-13 16:24 | disposition home or self-care (01) ==
PROVIDERS: Emergency Provider Emergency Medicine
DX: M79.674 Pain in right toe(s) (principal); F17.210 Nicotine dependence, cigarettes, uncomplicated; V49.9XXA Car occupant (driver) (passenger) injured in unspecified traffic accident, initial encounter
CPT/HCPCS: 73630; 99283

== ENCOUNTER 2023-07-03 15:50 | Emergency (ER) | payer BC, SELFPAY ==
[2023-07-03 16:06] VITALS: BP 148/90; PULSE 62; RESP 16; TEMP 37.3; O2SAT 99; BMI 28.8
--- NOTE | 2023-07-03 16:17 | HMH.EDGENADL ---
Discharge Plan Disposition Patient Disposition: Home, Self-Care Condition: Good Prescriptions Prescriptions: New cephalexin 500 mg capsule 500 mg PO Q8H 10 Days Qty: 30 0RF sulfamethoxazole-trimethoprim [Bactrim DS] 800-160 mg tablet 1 tab PO Q12H 14 Days Qty: 28 0RF No Action buprenorphine-naloxone 8-2 mg tablet, sublingual 2 tab sublingual DAILY mupirocin 2 % ointment topical azithromycin [Zithromax Z-Wiliam] 250 mg tablet See Rx Instructions PO .COMPLEX Qty: 6 0RF Rx Instructions: For 250 mg dose pack: take 500 mg today (day 1), then 250 mg for 4 days (days 2-5) PO albuterol sulfate 90 mcg/actuation HFA aerosol inhaler 1 inh inhalation QID Qty: 6.7 1RF sulfamethoxazole-trimethoprim [Bactrim DS] 800-160 mg tablet 1 tab PO BID 14 Days Qty: 28 0RF ibuprofen 800 MG tablet 800 mg PO Q8HP PRN (Reason: Moderate Pain) Qty: 15 0RF Referrals Follow up/Referrals: Provider,Referral, MD [Primary Care Provider] - See instructions Activity Restrictions/Add. Instructions Additional Instructions/Restrictions: You were evaluated in the emergency department today. 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 You may also take Tylenol and ibuprofen at home as needed for pain. Follow-up closely with her primary care provider. Return to the emergency department for new or worsening symptoms. Clinical Impressions Clinical Impression: Abscess or cellulitis of hip Instructions Patient Instructions: DI for Cellulitis -- Adult, DI for Skin Abscess Discharge ED Provider: Vero Leal General Adult HPI General Stated complaint: left side/upper bottocks four red/inflamed spots Time Seen by Provider: 07/03/23 16:05 History of Present Illness HPI narrative: This patient is a 52-year-old male with history of hepatitis C and drug abuse presenting with concern for a swollen, red and painful area to his left hip right at his waistline. He notes that it has been bothering him for a few days. He also notes he has some healing wounds to his middle of his buttocks that started out the same way. He states he does not know if they are spider bites or what they could be. No fevers, chills, chest pain, shortness of breath, or other systemic symptoms. He notes that they did open up the wound on his left hip last night at his daughter's house and got some pus out of it. Related Data Home Medications Medication Instructions Recorded Confirmed buprenorphine 8 mg-naloxone 2 mg 2 tab sublingual DAILY 12/29/22 12/29/22 sublingual tablet mupirocin 2 % topical ointment topical 12/29/22 12/29/22 Previous Rx's Medication Instructions Recorded ibuprofen 800 mg tablet 800 mg PO Q8HP PRN Moderate Pain 10/24/20 #15 tabs sulfamethoxazole 800 1 tab PO BID 14 days #28 tabs 12/16/22 mg-trimethoprim 160 mg tablet (Bactrim DS) albuterol sulfate 90 mcg/actuation 1 inh inhalation QID #6.7 grams 12/29/22 aerosol inhaler azithromycin 250 mg tablet See Rx Instructions PO .COMPLEX #6 12/29/22 (Zithromax Z-Wiliam) tabs cephalexin 500 mg capsule 500 mg PO Q8H 10 days #30 caps 07/03/23 sulfamethoxazole 800 1 tab PO Q12H 14 days #28 tabs 07/03/23 mg-trimethoprim 160 mg tablet (Bactrim DS) Allergies Allergy/AdvReac Type Severity Reaction Status Date / Time No Known Allergies Allergy Verified 12/29/22 14:58 [facility] Disclaimer: The information contained in this section may have been updated after the patient was seen, as this information can be updated by other users. Medical History Fixation hardware in leg Family History Mother Diabetes Social History Smoking Status: Current every day smoker tobacco type: cigarettes packs per day: 2 alcohol intake: never current occupational status: employed Travel in the last 8 weeks: None ROS Obtained: Yes All systems reviewed & no additional complaints except as documented Physical Exam General General appearance: alert and in no apparent distress Head Head exam: atraumatic and normocephalic Eye Eye exam: Present normal appearance, PERRL and EOMI ENT ENT exam: Present normal exam, normal oropharynx, mucous membranes moist and normal external ear exam Neck Neck exam: Present normal inspection, full ROM and trachea midline; Absent tenderness Chest Chest inspection: Present normal inspection and symmetric chest wall rise; Absent tenderness Respiratory Respiratory exam: Present normal lung sounds bilaterally; Absent respiratory distress, wheezes, stridor or accessory muscle use Cardiovascular Cardiovascular exam: Present regular rate and normal rhythm Abdominal Exam Abdominal exam: Present soft; Absent distention, tenderness or guarding Extremities Exam Extremities exam: Present normal inspection, full ROM and normal capillary refill; Absent tenderness or edema Back Exam Back exam: Present normal inspection and full ROM; Absent tenderness Neurological Exam Neurological exam: Present alert, oriented X3, CN II-XII intact and normal gait; Absent motor sensory deficit Psychiatric Psychiatric exam: Present normal affect and normal mood Skin Skin exam: Present warm, dry and erythema (Erythema to the left hip surrounding a small area of induration with central open wound. Unable to express purulent drainage. No palpable fluctuance.) Expanded Skin Exam Type of lesion: Present abscess Body image: 1. Medical Decision Making Medical Records Medical records reviewed: Yes I reviewed the patient's medical records. Baljeet Inquiry Pt receiving controlled substance: No Lab Data Lab results reviewed: Yes I reviewed the patient's lab results. Orders (Tests/Meds): ED MEDICATIONS Discontinued Medications Generic Name Dose Route Start Last Admin Trade Name Freq PRN Reason Stop Dose Admin Ketorolac Tromethamine 30 mg 07/03/23 16:13 Ketorolac 30mg/Ml Vial IM 07/03/23 16:14 ONCE ONE Medical Decision Narrative: In summary, this patient is a 52-year-old male presenting to the Emergency Department for evaluation of painful red and warm swollen area to the left hip. Differential diagnoses considered include but are not limited to abscess, cellulitis, septic joint. Ruling out the most morbid conditions drove assessment. On exam, the patient is well-appearing. He has full range of motion of his joint with no significant joint pain to suggest septic joint. He has an area of induration with surrounding erythema and warmth as well as an overlying open wound that he reports was previously draining pus, however there is no for drainage or fluctuance at this time. I do not feel that the wound is amenable to drainage given the current presentation, however I do feel he requires antibiotics for treatment of cellulitis. He was given prescriptions for Keflex and Bactrim. He was given IM Toradol for pain control. At this time, he is to be appropriate for discharge. Strict return precautions were given as well as instructions for supportive management. Also given instructions for close way to follow. Patient was discharged after all questions were answered Critical Care Critical Care Time Critical Care Time: No
[2023-07-03] MEDS: KETOROLAC 30MG/ML VIAL 30 MG IM (16:29)
[2023-07-03 16:38] VITALS: BP 148/90; PULSE 62; RESP 16; TEMP 37.3; O2SAT 99
== END 2023-07-03 16:39 | disposition home or self-care (01) ==
PROVIDERS: Emergency Provider Emergency Medicine
DX: L03.116 Cellulitis of left lower limb (principal); F17.210 Nicotine dependence, cigarettes, uncomplicated; B19.20 Unspecified viral hepatitis C without hepatic coma
CPT/HCPCS: 96372; 99283

== ENCOUNTER 2024-10-15 18:27 | Inpatient (IN) | payer MEDICAID, SELFPAY ==
[2024-10-15] VITALS (14 sets, daily range): BP systolic 125–189; BP diastolic 73–105; PULSE 34–50; RESP 6–20; TEMP 36.4–37.1; O2SAT 96–100; BMI 31.0; BMI 28.4
--- NOTE | 2024-10-15 18:26 | ECG_ITS ---
APPROVED REPORT Exam: Resting ECG HR:42 bpm ECG Measurements Heart Rate 42 AXES LA 252 P 56 QRSd 92 QRS 39 QT 512 T 45 QTc 454 Conclusion Sinus bradycardia with first-degree AV block no acute ST or T wave changes concerning for ischemia Electronically signed by : Deepthi Urrutia, 10/16/2024 00:52:40
--- NOTE | 2024-10-15 18:30 | [facility].EDCP ---
Discharge Plan Disposition Patient Disposition: Admitted Condition: Fair Clinical Impressions Clinical Impression: Bradycardia Discharge ED Provider: Deepthi Urrutia HPI General Chief Complaint: Weakness Stated Complaint: Bradycardia Time Seen by Provider: 10/15/24 18:28 History of Present Illness HPI narrative: Patient is a 53-year-old gentleman with no significant past medical history who presented to the emergency department with weakness, presyncopal symptoms for the last 3 weeks. Patient states that he does not have any medical problems, does not take any daily medications. Patient denies any cardiac history. Patient states that over the last 3 weeks he has been feeling generally more weak, has had some presyncopal symptoms including spotty vision, tunnel vision with ambulation. 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 Patient has not had any syncope. Patient has not had any chest pain or shortness of breath. Patient denies any recent fevers or cough. Patient denies any abdominal pain nausea vomiting or diarrhea. Patient does smoke half a pack a day. Patient denies any other drug use. Related Data Home Medications ?Medication ?Instructions ?Recorded ?Confirmed methadone 10 mg tablet 90 mg PO DAILY 10/15/24 10/15/24 Allergies Allergy/AdvReac Type Severity Reaction Status Date / Time No Known Allergies Allergy Verified 10/15/24 23:29 [facility] Disclaimer: The information contained in this section may have been updated after the patient was seen, as this information can be updated by other users. Medical History Opioid dependence Fixation hardware in leg Surgical History Hx of exploratory laparotomy Family History Mother Diabetes Father Coronary artery disease Social History Smoking Status: Current every day smoker tobacco type: cigarettes packs per day: 2 alcohol intake: never current occupational status: employed Travel in the last 8 weeks?: None Have you lived/traveled outside [place] in past 30 days?: No Contact w/someone who lives/traveled outside [place] past 30 days?: No Exposure to someone with infectious disease in past 14 days?: No Do you have a fever (greater than 100.4 F or 38 C)?: No Have you tested positive for COVID-19?: No Exposed to someone with COVID-19 in past 14 days?: No Do you have a sore throat?: No Do you have a cough?: No Do you have any weakness?: No Are you experiencing any nausea/vomitting?: No Do you have any diarrhea?: No Are you experiencing any unusual bleeding?: No Do you have any muscle aches/pain?: No Do you have any abdominal pain?: No Are you experiencing loss of taste or smell?: No Other Medical History Have you received the Flu Vaccine for this season: No Have you received the Pneumonia Vaccine: No ROS Obtained: Yes All systems reviewed & no additional complaints except as documented and Yes Systems reviewed as appropriate & no additional complaints except as documented Physical Exam General General appearance: alert and in no apparent distress Head Head exam: atraumatic, normocephalic and normal inspection Eye Eye exam: Present normal appearance, PERRL and EOMI; Absent scleral icterus ENT ENT exam: Present normal exam and normal external ear exam Neck Neck exam: Present normal inspection and full ROM Chest Chest inspection: Present normal inspection and symmetric chest wall rise Respiratory Respiratory exam: Present normal lung sounds bilaterally; Absent respiratory distress or wheezes Cardiovascular Cardiovascular exam: Present normal rhythm, bradycardia and normal heart sounds Abdominal Exam Abdominal exam: Present soft and distention; Absent tenderness, guarding or rebound Extremities Exam Extremities exam: Present normal inspection and full ROM Back Exam Back exam: Present normal inspection and full ROM Neurological Exam Neurological exam: Present alert and oriented X3 Psychiatric Psychiatric exam: Present normal affect and normal mood Skin Skin exam: Present warm and dry HEART Score HEART Score HEART Score assessment performed?: Yes HEART Score: 2 Critical Care Critical Care Time Critical Care Time: No Medical Decision Making Baljeet Inquiry Pt receiving controlled substance: No Vital Signs Vital Signs: 10/15/24 18:31 10/15/24 18:37 10/15/24 18:45 Temperature 98.7 F Temperature Source Oral Pulse Rate 41 L 42 L Pulse Rate [Left] 49 L Respiratory Rate 12 19 17 Blood Pressure Blood Pressure [Right Arm] 135/89 Blood Pressure Mean [Right Arm] 104 Blood Pressure Source [Right Arm] Automatic Cuff Blood Pressure Position Blood Pressure Position [Right Arm] Supine 02 Sat by Pulse Oximetry 98 98 98 Oxygen Delivery Method Room Air Room Air Room Air 10/15/24 19:01 10/15/24 19:15 10/15/24 19:18 Temperature Temperature Source Pulse Rate 44 L Pulse Rate [Left] Respiratory Rate 7 L 6 L 11 L Blood Pressure 131/76 125/73 Blood Pressure [Right Arm] Blood Pressure Mean [Right Arm] Blood Pressure Source [Right Arm] Blood Pressure Position Blood Pressure Position [Right Arm] 02 Sat by Pulse Oximetry 100 Oxygen Delivery Method 10/15/24 20:00 10/15/24 20:30 10/15/24 21:01 Temperature Temperature Source Pulse Rate 41 L 38 L Pulse Rate [Left] Respiratory Rate 10 L 7 L 12 Blood Pressure 136/85 148/76 H 189/105 H Blood Pressure [Right Arm] Blood Pressure Mean [Right Arm] Blood Pressure Source [Right Arm] Blood Pressure Position Blood Pressure Position [Right Arm] 02 Sat by Pulse Oximetry 99 98 Oxygen Delivery Method 10/15/24 21:30 10/15/24 22:01 10/15/24 22:04 Temperature Temperature Source Pulse Rate 34 L 39 L Pulse Rate [Left] 40 L Respiratory Rate 12 20 Blood Pressure 156/99 H 147/85 H Blood Pressure [Right Arm] Blood Pressure Mean [Right Arm] Blood Pressure Source [Right Arm] Blood Pressure Position Blood Pressure Position [Right Arm] 02 Sat by Pulse Oximetry 96 98 97 Oxygen Delivery Method Room Air 10/15/24 23:00 10/15/24 23:05 Temperature 97.6 F Temperature Source Oral Pulse Rate 42 L Pulse Rate [Left] Respiratory Rate 20 Blood Pressure 138/75 Blood Pressure [Right Arm] Blood Pressure Mean [Right Arm] Blood Pressure Source [Right Arm] Blood Pressure Position Supine Blood Pressure Position [Right Arm] 02 Sat by Pulse Oximetry Oxygen Delivery Method Room Air Room Air Lab Data Lab results reviewed: Yes I reviewed the patient's lab results. Labs: Lab Results 10/15/24 18:33: WBC 5.8, RBC 5.19, Hgb 14.8, Hct 44.9, MCV 86.5, MCH 28.5, MCHC 33.0, RDW 13.0, Plt Count 234, MPV 11.7 H, Neut % (Auto) 43.4, Lymph % (Auto) 37.8, [place] % (Auto) 11.2 H, Eos % (Auto) 5.2, Baso % (Auto) 2.2 H, Neut # (Auto) 2.5, Lymph # (Auto) 2.2, [place] # (Auto) 0.7, Eos # (Auto) 0.3, Baso # (Auto) 0.1, PT 12.1, INR 1.10, Sodium 138, Potassium 4.2, Chloride 98, Carbon Dioxide 29, Anion Gap 15.2 H, BUN 14, Creatinine 0.90, Estimated Creat Clear 125, Estimated GFR 88, Est GFR ( Amer) 106, Glucose 89, Calcium 9.0, Total Bilirubin 0.5, AST 40, ALT 18, Alkaline Phosphatase 86, Troponin I < 0.01, NT-Pro-B Natriuret Pep 146 H, Total Protein 8.3 H, Albumin 4.5, Globulin 3.8 H, Albumin/Globulin Ratio 1.2, TSH 1.03, Free T4 1.27, Free T4 Index 2.7 L, Thyroxine (T4) 7.7, T3 Uptake 35, HCV Ab ANGELICA w/Rflx PCR Qn Reactive, HIV Ag/Ab Combo Qual Negative 10/15/24 19:30: Urine Opiates Screen Negative, Urine Methadone Screen Positive H, Ur Barbituates Screen Negative, Ur Phencyclidine Scrn Negative, Ur Amphetamines Screen Negative, U Benzodiazepines Scrn Negative, Urine Cocaine Screen Negative, U Marijuana (THC) Screen Positive H 10/15/24 18:33 10/15/24 18:33 Response Orders (Tests/Meds): ED MEDICATIONS Generic Name Dose Route Start Last Admin Trade Name Freq PRN Reason Stop Dose Admin Acetaminophen 650 mg 10/15/24 20:35 Acetaminophen 325mg Tab PO 11/14/24 20:34 Q4HP PRN Fever or Mild Pain (1-3) Acetaminophen 500 mg 10/15/24 23:13 Acetaminophen 500mg Tab PO 11/14/24 23:12 TIDP PRN Mild to Moderate Pain (1-6) Albuterol/Ipratropium 3 ml 10/15/24 22:53 Ipratropium/Albuterol 3 Ml Neb IH 11/14/24 22:52 Q4HP PRN Shortness Of Breath Calcium Carbonate 500 mg 10/15/24 23:15 Calcium Carbonate 500mg Chewtab PO 11/14/24 23:14 QIDP PRN Heartburn Enoxaparin Sodium 40 mg 10/16/24 09:00 Enoxaparin 40mg/0.4ml Syringe SUBCUT 11/15/24 08:59 DAILY GUERITA Famotidine 20 mg 10/15/24 23:15 10/15/24 23:22 Famotidine 20mg Tablet PO 11/14/24 23:14 20 mg BID GUERITA Administration Dopamine HCl/Dextrose 250 mls @ 8.166 mls/hr 10/16/24 02:00 Dopamine 400mg/250ml D5w IV 11/15/24 01:59 .Q24H GUERITA Protocol 2.5 MCG/KG/MIN Ibuprofen 400 mg 10/15/24 20:35 Ibuprofen 400 Mg Tablet PO 11/14/24 20:34 Q6HP PRN Mild Pain (1-3) Ibuprofen 600 mg 10/15/24 22:55 Ibuprofen 800 Mg Tablet PO 11/15/24 04:59 Q8 PRN Mild pain(1-3),fever,headache Methadone HCl 90 mg 10/16/24 07:00 Methadone 10mg Tablet PO 11/15/24 06:59 AM [facility] Ondansetron HCl 4 mg 10/15/24 20:35 Ondansetron 4mg/2ml Vial IV 11/14/24 20:34 Q8HP PRN Nausea ORDERS Category Date Time Status Cardiology Consult [Consult to Cardiology] [CONS] Cons 10/15/24 20:35 Active Routine POCUS Point of Care (ER Only) Stat Exams 10/15/24 18:36 Completed XR chest portable Stat Exams 10/15/24 18:32 Completed Complete Blood Count Auto Diff AMLAB Lab 10/16/24 06:00 Ordered Complete Blood Count Auto Diff Stat Lab 10/15/24 18:33 Completed Comprehensive Metabolic Panel AMLAB Lab 10/16/24 06:00 Ordered Comprehensive Metabolic Panel Stat Lab 10/15/24 18:33 Completed Drug Screen,Urine Stat Lab 10/15/24 19:30 Completed Free T4 (Free Thyroxine) Stat Lab 10/15/24 18:33 Completed HCV RNA PCR, Quant Stat Lab 10/15/24 18:33 Received HIV Combo Stat Lab 10/15/24 18:33 Completed Hepatitis C Ab Qual. W/ RFX Stat Lab 10/15/24 18:33 Completed Lipid Panel AMLAB Lab 10/16/24 06:00 Ordered Magnesium AMLAB Lab 10/16/24 06:00 Ordered NT Pro Brain Natriuretic Pep. Stat Lab 10/15/24 18:33 Completed Phosphorous AMLAB Lab 10/16/24 06:00 Ordered Prothrombin Time INR AMLAB Lab 10/16/24 06:00 Ordered Prothrombin Time INR Stat Lab 10/15/24 18:33 Completed Thyroid Panel Stat Lab 10/15/24 18:33 Completed Troponin I Q3H Lab 10/15/24 22:22 Completed Troponin I Q3H Lab 10/16/24 00:45 Ordered Troponin I Stat Lab 10/15/24 18:32 Completed CA echo doppler complete Routine Y 10/15/24 20:39 Ordered ECG Data Tracing #1: ECG Narrative: Sinus bradycardia with first-degree AV block no acute ST or T wave changes concerning for ischemia MDM Narrative Medical Decision Narrative: Patient is a 53-year-old gentleman with no significant past medical history who presented to the emergency department with generalized weakness and presyncopal symptoms with ambulation for the last 3 weeks. On arrival, patient was bradycardic but hemodynamically stable. Patient arrived via EMS, with heart rates in the 40s, patient remained hemodynamically stable did not receive any medications and route. Patient had an otherwise normal cardiopulmonary exam on arrival. Differential and workup includes: ACS/CT, arrhythmia, heart block, thyroid abnormalities, pericardial effusion, pneumothorax, pleural effusion, amongst others. Bedside ultrasound was performed which showed no pericardial effusion, no right ventricular enlargement, global normal squeeze but slow in nature. While in the emergency department, patient remained hemodynamically stable. Patient's heart rate did drop into the 30s on multiple occasions. Patient's labs were reviewed and interpreted by myself, CBC showed no leukocytosis, hemoglobin was stable. Chemistry was unremarkable except for mild elevated anion gap of 15. BNP mildly elevated at 146. Initial troponin less than 0.01. Chest x-ray was reviewed and interpreted by myself and showed no acute focal consolidation, pneumothorax, pleural effusion or other acute cardiopulmonary process. I did discuss the case with cardiology who recommended admission for telemetry and to give dopamine for heart rate less than 40. I discussed the case with hospital medicine who ultimately admitted the patient for further evaluation workup.
--- NOTE | 2024-10-15 18:32 | XR_ITS ---
PROCEDURE INFORMATION: Exam: XR Chest Exam date and time: 10/15/2024 6:47 PM Age: 53 years old Clinical indication: Other: Bradycardia TECHNIQUE: Imaging protocol: Radiologic exam of the chest. Views: 1 view. COMPARISON: CR XR CHEST PORTABLE 11/25/2022 11:44 AM FINDINGS: Lungs: Unremarkable. No consolidation. Pleural spaces: Unremarkable. No pleural effusion. No pneumothorax. Heart/Mediastinum: Unremarkable. No cardiomegaly. Bones/joints: Unremarkable. IMPRESSION: No acute findings. No significant change from November 25, 2022 is appreciated.
--- OUTSIDE RECORDS SUMMARY | 2024-10-15 18:33 | XMS_ITS | Clinical Summary ---
Author Organization [employer] [facility] Address [address] [place] [address] Phone Care Team Providers Care College Sports Assistant Name Role Phone Unavailable Unavailable Conditions or Problems Problem Name Problem Code Onset Date Status Entry Date Provider Comment Standard Description Annotate Body mass index (BMI) 27.0-27.9; adult Z68.27 (ICD-10-CM ) 08/07 Active 08/07 Lilia Mobley APRN Body mass index [BMI] 27.0-27.9, adult Body mass index (BMI) 27.0-27.9; adult Z68.27 (ICD-10-CM ) 07/29 Correction 07/29 Lilia Mobley APRN Body mass index [BMI] 27.0-27.9, adult Hepatitis C 56343604 (SNOMED CT) 08/05 Active 08/05 Tiffany Smalls RMA Viral hepatitis C Body mass index (BMI) 27.0-27.9; adult Z68.27 (ICD-10-CM ) 07/29 Removed 07/29 Bernie Ibanez APRN Body mass index [BMI] 27.0-27.9, adult Rhinorrhea 45891390 (SNOMED CT) 07/29 Active 07/29 Bernie Ibanez APRN Nasal discharge Body mass index (BMI) 28.0-28.9; adult Z68.28 (ICD-10-CM ) 07/22 Correction 07/23 Bernie Ibanez APRN Body mass index [BMI] 28.0-28.9, adult Nasal pain 679992491 (SNOMED CT) 07/29 Active 07/29 Bernie Ibanez APRN Pain of nose Body mass index (BMI) 28.0-28.9; adult Z68.28 (ICD-10-CM ) 07/22 Removed 07/23 Verónica Brown APRN Body mass index [BMI] 28.0-28.9, adult Body mass index (BMI) 27.0-27.9; adult Z68.27 (ICD-10-CM ) 07/17 Correction 07/17 Verónica Brown APRN Body mass index [BMI] 27.0-27.9, adult GERD (gastroesop hageal reflux disease) 616014985 (SNOMED CT) 07/22 Active 07/23 Verónica Brown APRN Gastroesophagea l reflux disease Counseling for nutrition Z71.3 (ICD-10-CM ) 07/17 Inactive 07/17 Lilia Mobley APRN Dietary counseling and surveillance Body mass index (BMI) 27.0-27.9; adult Z68.27 (ICD-10-CM ) 07/17 Removed 07/17 Lilia Mobley APRN Body mass index [BMI] 27.0-27.9, adult Insomnia 826301062 (SNOMED CT) 07/17 Active 07/17 Lilia Mobley APRN Insomnia Tobacco User 930093376 (SNOMED CT) 07/17 Active 07/17 Lilia Mobley APRN Tobacco user Depression 02802245 (SNOMED CT) 07/17 Active 07/17 Lilia Mobley APRN Depressive disorder Anxiety Disorder 658815905 (SNOMED CT) 07/17 Active 07/17 Lilia Mobley APRN Anxiety disorder Medications Medication Instructions Start Date Stop Date Generic Name NDC Provider MULTI-VITAMINS TABS Take 1 tablet by mouth once a day multivitamin 53683987538 Lilia Mobley APRN TRAZODONE HCL 100 MG TABS Take 1 tablet by mouth at bedtime trazodone 11147071356 Lilia Mobley APRN Vistaril 25 mg capsule Take 1 to 2 capsule by mouth at bedtime as needed for sleep hydroxyzine pamoate 65228752748 Bernie Ibanez EMMA AMITRIPTYLINE HCL 50 MG TABS Take 1 tablet by mouth every night amitriptyline 43767271906 Lilia Mobley APRN CLARITIN 10 MG TABS Take 1 tablet by mouth once a day loratadine 12443284042 Bernie Ibanez EMMA MUPIROCIN 2 % OINT Apply a small amount as directed once or twice a day for 7 to 10 days, to affected nostril. mupirocin 90349775138 Bernie Ibanez APRN Vistaril 25 mg capsule Take 1 to 2 capsule by mouth at bedtime as needed for sleep hydroxyzine pamoate 56813191906 Bernie Ibanez EMMA GOODSENSE NICOTINE 4 MG LOZG Hold 1 lozenge to inside of mouth (buccal) every two hours as needed Do not exceed 5 lozenges in 6 hours or 20 in 24 hours nicotine (polacrilex) 91346459612 Lilia Mobley APRN OMEPRAZOLE 20 MG CPDR Take 1 capsule by mouth once a day FOR ACID REFLUX omeprazole 01229791437 Verónica Brown APRN NICOTINE STEP 1 21 MG/24HR PT24 APPLY 1 PATCH TO SKIN EVERY MORNING DIRECTED REMOVE AND REPLACE PATCH DAILY FOR 6 TO 8 WEEKS. THEN DECREASE TO THE 14 MG PATCHES. nicotine 35811159858 Verónica Brown APRN GOODSENSE NICOTINE 4 MG LOZG Hold 1 lozenge to inside of mouth (buccal) every two hours as needed Do not exceed 5 lozenges in 6 hours or 20 in 24 hours nicotine (polacrilex) 91152215126 Liliarose Mobley EMMA TRAZODONE HCL 50 MG TABS Take 1 tablet by mouth at bedtime trazodone 13229426915 Tiffany PERKINS TRAZODONE HCL 100 MG TABS Take 1 tablet by mouth at bedtime trazodone 22617535072 Lilia Mobley APRN TRAZODONE HCL 50 MG TABS Take 1 tablet by mouth at bedtime trazodone 44663777754 Tiffany PERKINS BUPRENORPHINE HCL-NALOXONE HCL 8-2 MG SUBL buprenorphine-na loxone 28714253116 Tiffany PERKINS Medications Administered No information available. Allergies, Adverse Reactions, Alerts Observed no known allergies at Results Date Name Value Unit Range Flag Description Lab Report: HEPATITIS PANEL, ACUTE W/REFLEX TO CONFIRMATION, HEPATITIS P ... HGBA1C 5.4 % OF TOTAL HGB % <5.7 N Hemoglobin A1c/Hemoglobin, total in Blood - % TSH 0.83 u[iU]/mL 0.40-4.50 N Thyrotropi n [Units/volume] in Serum or Plasma BASO % MANU 1.6 % N basophils as percent of blood leukocytes, manual count EOS % MANU 2.8 % N eosinophil s as percent of blood leukocytes, manual count MONOCYTE % 10.1 % N Monocytes/ 100 leukocytes in Blood by Automated count LYMPH% P BLD 24.2 % N lymphocy [place] as percent of blood leukocytes PMN % 61.3 % N Neutrophils/1 00 leukocytes in Blood by Automated count ABS BASOS 144 {Cells}/u L 0-200 N Basophils [#/volume] in Blood ABS EOS 252 {Cells}/u L 15-500 N Eosinophils [#/volume] in Blood ABS MONOS 909 {Cells}/u L 200-950 N Monocytes [#/volume] in Blood ABSLYMPHCT 2178 {Cells}/u L 850-3900 N Lymphocytes [#/volume] in Blood ABS NEUTROPH 5517 CELLS/UL 10*3/uL 5499-0870 N Neutrophils [#/volume] in Blood MPV 12.1 fL 7.5-12.5 N Platelet vielka n volume [Entitic volume] in Blood by Helen PLATELETK/UL 233 THOUSAND/UL 10*3/uL 140-400 N platelet count RDW 12.7 % 11.0-15.0 N Erythrocyte distribution width [Ratio] by Automated count OL-MCHC 33.9 g/dL 32.0-36.0 N mean corpus cular hemoglobin concentration, rbc MCH 29.8 pg 27.0-33.0 N MCH [Entiti c mass] by Automated count MCV 88.1 fL 80.0-100.0 N MCV [Entit ic volume] by Automated count HCT 44.6 % 38.5-50.0 N Hematocrit [Volume Fraction] of Blood by Automated count HGB 15.1 g/dL 13.2-17.1 N Hemoglobin [Mass/volume] in Blood RBC M/UL 5.06 MILLION/UL 10*6/uL 4.20-5.80 N red blood count WBC CT BLOOD 9.0 10*3/uL 3.8-10.8 N leukocy te count, blood SGPT (ALT) 37 U/L 9-46 N Alanine aminotransferase [Enzymatic activity/volume] in Serum or Plasma SGOT (AST) 26 U/L 10-35 N Aspartate aminotransferase [Enzymatic activity/volume] in Serum or Plasma ALK PHOS 67 U/L 35-144 N Alkaline giselle sphatase [Enzymatic activity/volume] in Blood BILI TOTAL 0.5 mg/dL 0.2-1.2 N Bilirubin. total [Mass/volume] in Serum or Plasma A/G RATIO 1.1 (calc) 1.0-2.5 N Albumin/ Globulin [Mass Ratio] in Serum or Plasma GLOBULIN TOT 3.8 G/DL (CALC) g/dL 1.9-3.7 H Globulin [Mass/volume] in Serum ALBUMIN EOP 4.2 g/dL 3.6-5.1 N Albumin [ Mass/volume] in Serum or Plasma by Electrophoresis PROTEIN, TOT 8.0 g/dL 6.1-8.1 N Protein [Mass/volume] in Serum or Plasma CALCIUM 9.6 mg/dL 8.6-10.3 N Calcium [Moles/volume] in Serum or Plasma CO2 31 mmol/L 20-32 N Carbon dioxid e, total [Moles/volume] in Venous blood CHLORIDE BLD 99 mmol/L 98-110 N chloride , blood POTASSIUM 4.8 mmol/L 3.5-5.3 N Potassium [Moles/volume] in Serum or Plasma SODIUM 136 mmol/L 135-146 N Sodium [Moles /volume] in Serum or Plasma BUN/CREAT 16 (calc) 6-22 N Urea nitrogen/Creatinine [Mass Ratio] in Serum or Plasma EGFR IF AFA 128 mL/min/1. 73m2 >OR = 60 N Glomerular filtratio n rate/1.73 sq M.predicted among blacks [Volume Rate/Area] in Serum, Plasma or Blood by Creatinine-based formula (MDRD) EGFR 110 mL/min/1. 73m2 >OR = 60 N Glomerular filtratio n rate/1.73 sq M.predicted [Volume Rate/Area] in Serum, Plasma or Blood by Creatinine-based formula (MDRD) CREATININE 0.67 mg/dL 0.70-1.33 L Creatini ne [Mass/volume] in Serum or Plasma BUN 11 mg/dL 7-25 N Urea nitrogen [Mass/volume] in Serum or Plasma GLUCOSE SER 96 mg/dL 65-99 N Glucose [ Mass/volume] in Serum or Plasma HIV AB NON-REACTIVE NON-REACTI VE N HIV 1 Ab [Presence] in Cerebral spinal fluid by Immunoblot HEP C AB REACTIVE NON-REACTI VE A Hepatitis C virus Ab [Presence] in Serum HB CORE IGM NON-REACTIVE NON-REACTI VE N Hepatitis B virus core IgG+IgM Ab [Presence] in Serum or Plasma by Immunoassay HBSAG NON-REACTIVE NON-REACTI VE N Hepatitis B virus surface Ag [Units/volume] in Serum ANTI-HAV IGM NON-REACTIVE NON-REACTI VE N Hepatitis A virus IgM Ab [Presence] in Serum Plan of Care Type Date Detail Referral [facility], [address] [place] [address] [address], [place], [address] Referral excluded fr om report: Pending order T1 CBC with diff Pending order T1 CMP Pending order T1 Acute Hepatit s Panel Pending order T1 HIV 1/2 Ag & Ab 4th gen -consent required Pending order T1 TSH reflex to free T4 Pending order T1 HGBA1c Patient education Patient Educat ion Given Procedures Code Procedure Name Date Entry Date [facility]-[id number] Medication Re[place] 4004F Patient screened for tobacco use and received tobacco cessation intervention CPT-3074F Most recent systolic blood pressure <130 mm Hg CPT-3078F Most recent diastoli c blood pressure <80 mm Hg [id number] Giving encouragement to exercise [id number] Dietary management education/guidance/counseling GASTRO [facility] E [facility]-[id number] Medication Reconciliation CPT II 4004F Patient screened for tobacco use and received tobacco cessation intervention CPT-3075F Most recent systolic blood pressure 130-139 mm Hg CPT-3079F Most recent diastoli c blood pressure 80-89 mm Hg CPT-1159F Medication list docu mented in medical record CPT-1160F Review of all medica tions by a prescribing practitioner [facility] 6399 T1 CBC with diff [facility] 84269 T1 CMP [facility] 91361 T1 Acute Hepatits Panel 2021 [facility] 86200 T1 HIV 1/2 Ag & Ab 4 th gen -consent required [facility] 24964 T1 TSH reflex to free T4 05/10/24 [facility] 496 T1 HGBA1c [id number] Medication Reconciliation SCT-[id number] Giving encouragement to exercise CPT-3074F Most recent systolic blood pressure <130 mm Hg CPT-3078F Most recent diastoli c blood pressure <80 mm Hg CPT-1159F Medication list docu mented in medical record CPT-1160F Review of all medica tions by a prescribing practitioner SCT-[id number] Medication Reconciliation SCT-[id number] Giving encouragement to exercise SCT-[id number] Dietary management education/guidance/counseling CPT II 4004F Patient screened for tobacco use and received tobacco cessation intervention CPT-3074F Most recent systolic blood pressure <130 mm Hg CPT-3079F Most recent diastoli c blood pressure 80-89 mm Hg Vital Signs Date Name Value Unit Description BMI (Body Mass Index) 27.86 kg/m2 Bod y Mass Index (Ratio) BP Diastolic 69 mm[Hg] blood pressu re, diastolic BP Systolic 107 mm[Hg] blood pressur e, systolic BSA (Body Surface Area) 2.04 b lois surface area Heart Rate 84 /min pulse rate Height 69 [in_us] height E&M Height 175.26 cm height in cent imeters E&M Weight Measured 188 [lb_av] weight E& M Weight Measured 188 [lb_av] weight E& M Weight Measured 85.45 kg weight in kilograms E&M Immunizations Vaccine Administration Date Standard Description CVX Co de Dose COVID-19 mRNA (MOD) COVID-19 mRNA (MOD) 207 Unknown COVID-19 mRNA (MOD) COVID-19 mRNA (MOD) 207 Unknown COVID-19 mRNA (MOD) COVID-19 mRNA (MOD) 207 Unknown Influenza, P-Free Influenza, P-Free 140 Unknown Influenza Quad Inj Influenza Quad Inj 150 Unknown Hep A, adult Hep A, adult 52 Unknown Hep A, adult Hep A, adult 52 Unknown PPV23 PPV23 33 Unknown Tdap, Adsorbed Tdap, Adsorbed 115 Unknow n Tdap, Adsorbed Tdap, Adsorbed 115 Unknow n Tdap, Adsorbed Tdap, Adsorbed 115 Unknow n Tdap, Adsorbed Tdap, Adsorbed 115 Unknow n Advance Directives No information available.
--- OUTSIDE RECORDS SUMMARY | 2024-10-15 18:34 | XMS_ITS | Clinical Summary ---
Author Organization [facility] Address [address] [place] [address] Care Team Providers Care Microsoft Infrastructure Consultant Name Role Phone Unavailable Primary Care Provider Unavailabl e Allergies No known active allergies Medications sulfamethoxazole -trimethoprim (BACTRIM DS;SEPTRA DS) 800-160 MG per tablet Take 1 tablet by mouth 2 times daily Active ibuprofen (ADVIL;MOTRIN) 600 MG tablet Take 1 tablet by mouth 3 times daily as needed for Pain 60 tablet 07/21/2018 Active Social History Tobacco Use Types Packs/Day Years Used Date Smoking Tobacco: Every Day Cigarettes Smokeless Tobacco: Never Alcohol Use Standard Drinks/Week Comments Not Currently 0 (1 standard drink = 0.6 oz pur e alcohol) Sex and Gender Information Value Date Recorded Sex Assigned at Not on file Legal Sex Male 3:01 PM EDT Gender Identity Not on file Sexual Orientation Not on file Last Filed Vital Signs Vital Sign Reading Time Taken Comments Blood Pressure 132/89 07/21/2018 6:11 PM EDT Pulse 63 07/21/2018 6:11 PM EDT Temperature 37.1 C (98.8 F) 07/21/2018 3:51 PM EDT Respiratory Rate 18 07/21/2018 3:51 PM EDT Oxygen Saturation 98% 07/21/2018 6:11 PM EDT Inhaled Oxygen Concentration - - Weight 108.9 kg (240 lb) 07/21/2018 3:51 PM EDT Height 175.3 cm (5' 9 ) 07/21/2018 3:51 PM EDT Body Mass Index 35.44 07/21/2018 3:51 PM EDT Plan of Treatment Not on file Insurance GENERIC COMMERCIAL [facility] Address: [address] [place] [address] [place]
--- OUTSIDE RECORDS SUMMARY | 2024-10-15 18:34 | XMS_ITS | Clinical Summary ---
Author Organization Healthcare Address [address] [place] [address] Care Team Providers Care Youth Agent Name Role Phone Pcp, No Primary Care Provider Unavailabl e Allergies No known active allergies Medications ibuprofen 400 MG tablet Take 2 tablets by mouth in the morning and 2 tablets in the evening and 2 tablets before bedtime. 60 tablet 07/15/2024 Active Encounters Date Type Department Care Team Description 07/22/2024 Orders Only [facility] [address] [place] [address] Calvin Mcneill MD from Last 3 Months Immunizations Immunization Administration Dates Next Due Influenza, Unspecified 04/06/2009 Social History Tobacco Use Types Packs/Day Years Used Date Smoking Tobacco: Every Day Sex and Gender Information Value Date Recorded Sex Assigned at Not on file Legal Sex Male 7:32 PM EDT Gender Identity Not on file Sexual Orientation Not on file Last Filed Vital Signs Vital Sign Reading Time Taken Comments Blood Pressure 161/95 07/15/2024 2:36 PM EDT Pulse 58 07/15/2024 2:36 PM EDT Temperature 36.6 C (97.8 F) 07/15/2024 2:36 PM EDT Respiratory Rate 16 07/15/2024 2:36 PM EDT Oxygen Saturation 97% 07/15/2024 2:36 PM EDT Inhaled Oxygen Concentration - - Weight 95.3 kg (210 lb) 07/15/2024 11:01 AM EDT Height 175.3 cm (5' 9 ) 09/25/2014 2:20 PM EDT Body Mass Index 31.01 09/25/2014 2:20 PM EDT Plan of Treatment Health Maintenance Due Date Last Done Comments [facility]-Depression Screening 1968 [facility]-HIV Screening 1968 [facility]-Hepatitis C Screening 1968 [facility]-Infant/Child/Adol SDOH Screenings 1968 [facility]-Obesity Intervention 1974 [facility]- SDOH Screenings 1986 [facility]-Adult SDOH Screenings 1986 [facility]-Hepatitis B Vaccines (1 of 3 - 19+ 3-dose series) 11/29/1987 CT Colonography 2013 Colonoscopy 2013 FIT-DNA 2013 FIT 2013 FOBT 2013 Sigmoidoscopy 2013 [facility]-Colorectal Cancer Screening 2013 [facility]-Pneumococcal Vaccine: 50+ Years (2 of 2 - PCV) 2018 06/24/2016 [facility]-Zoster Vaccines (1 of 2) 2018 [id number] Vaccine (4 - season) 2023 03/13/2021, 07/19/2020, 06/07/2020 [facility]-Influenza Vaccine (#1) 2024 06/24/2016, [facility]-DTaP,Tdap,and Td Vaccines (5 - Td or Tdap) 10/24/2030 10/24/2020, 09/27/2018, 10/11/2014, Additional history exists [facility]-Hepatitis A Vaccines Aged Out 09/27/2018, 12/05 No longer eligible based on patient's age to complete this topic HPV Vaccines Aged Out No longer eligi ble based on patient's age to complete this topic [facility]-HIB Vaccines Aged Out No longer e ligible based on patient's age to complete this topic [facility]-IPV Vaccines Aged Out No longer e ligible based on patient's age to complete this topic [facility]-Rotavirus Vaccines Aged Out No lo nger eligible based on patient's age to complete this topic Insurance [facility] Care Teams Youth Agent Relationship Specialty Start Date End Date Pcp, Maryam [address] [place] [address] PCP - General Family Medicine 07/15/24
--- OUTSIDE RECORDS SUMMARY | 2024-10-15 18:34 | XMS_ITS | Clinical Summary ---
Author Organization [facility] Address [facility] [place] [address] Care Team Providers Care Manager Marketing Name Role Phone Pcp, No Primary Care Provider [phone] Source Comments This information has been disclosed to you from confidential records protectedfrom disclosure by state law. You shall make no further disclosure of thisinformation without the specific, written, andinformed release of theindividual to whom it pertains, or as otherwise permitted by law. A generalau thorization for the release of medical or other information is not sufficientfor the purposes of the release of HIV test results or diagnoses. [id number] Allergies No known active allergies Medications silver sulfADIAZINE (SILVADENE) 1 % creamIndications: Burn injury Apply topically daily. 50 g 4 Active acetaminophen (TYLENOL EXTRA STRENGTH) 500 MG tabletIndications :Burn injury Take 1 tablet (500 mg total) by mouth every 6 hours as needed. 100 tablet 4 Active Social History Tobacco Use Types Packs/Day Years Used Date Smoking Tobacco: Never Assessed Sex and Gender Information Value Date Recorded Sex Assigned at Not on file Legal Sex Male 3:48 AM EST Gender Identity Not on file Sexual Orientation Not on file Last Filed Vital Signs Vital Sign Reading Time Taken Comments Blood Pressure 144/70 06/08/2023 9:03 AM EST Pulse 50 06/08/2023 9:03 AM EST Temperature 37.2 C (98.9 F) 06/08/2023 6:22 AM EST Respiratory Rate 17 06/08/2023 9:03 AM EST Oxygen Saturation 99% 06/08/2023 9:03 AM EST Inhaled Oxygen Concentration 99% 06/08/2023 9 :03 AM EST Weight - - Height - - Body Mass Index - - Plan of Treatment Health Maintenance Due Date Last Done Comments Abnormal Colonoscopy Follow Up 1968 Hepatitis C Screening (MyChart) 1968 Alcohol Misuse Screening 1986 Depression Screening 1986 HIV Screening 1986 Immunization: DTaP/Tdap/Td (1 - Tdap) 11/29/1987 Immunization: Hepatitis B (1 of 3 - 19+ 3-dose series) 11/29/1987 Cologuard (FIT-DNA) 2013 Colonoscopy 2013 Colorectal Cancer Screening (MyChart) 2013 Stool Testing (gFOBT) 2013 Immunization: Pneumococcal (1 of 1 - PCV) 2018 Immunization: Zoster (1 of 2) 2018 Immunization: COVID-19 ( - season) 2023 Immunization: Influenza (MyChart) (#1) 2024 Care Teams Manager Marketing Relationship Specialty Start Date End Date Pcp, No No Address PCP - General 06/08/23
[2024-10-15 18:47] LABS: Hematocrit 44.9 % (42.0-52.0); Hemoglobin 14.8 g/dL (14.1-18.0); Immature Granulocytes % 0.2 %; Mean Corpuscular HGB Conc 33.0 g/dL (31.8-35.4); Mean Corpuscular Hemoglobin 28.5 pg (27.0-31.2); Mean Corpuscular Volume 86.5 fl (80-94); Nucleated Red Blood Cells % 0 %; Platelet Count 234 K/mm3 (142-424); Red Blood Count 5.19 M/mm3 (4.60-6.20); Red Cell Distribution Width-SD 41.0 fL; White Blood Count 5.8 K/mm3 (4.8-10.8)
[2024-10-15 18:52] LABS: Albumin Level 4.5 g/dl (3.5-5.0); Chloride 98 mmol/L (98-107); Sodium 138 mmol/L (136-145)
[2024-10-15 18:53] LABS: Potassium 4.2 mmoL/L (3.5-5.1)
[2024-10-15 18:55] LABS: Albumin/Globulin Ratio 1.2 (1.1-1.8); Alkaline Phosphatase 86 U/L (38-126); Anion Gap 15.2 mEq/L (5-15); Bilirubin,Total 0.5 mg/dl (0.2-1.3); Blood Urea Nitrogen 14 mg/dl (9-20); Carbon Dioxide 29 mmol/L (22.0-30.0); Creatinine Clearance Estimated 125 mL/min (50-200); Creatinine,Serum 0.90 mg/dl (0.66-1.25); Estimated Glomerular Filt Rate 88 ml/min (>60); GFR (African American) 106 ML/MIN (>60); Globulin 3.8 g/dL (1.3-3.2); INR 1.10 (0.9-1.1); Prothrombin Time 12.1 seconds (10.1-12.5); Total Protein,Serum 8.3 g/dl (6.3-8.2)
[2024-10-15 18:56] LABS: Alanine Aminotransferase 18 U/L (12-78); Aspartate Amino Transferase 40 U/L (17-59); Calcium 9.0 mg/dl (8.4-10.2); Glucose 89 mg/dl (74-100)
[2024-10-15 19:05] LABS: NT Pro Brain Natriuretic Pep. 146 pg/mL (0-125)
[2024-10-15 19:14] LABS: Troponin I < 0.01 ng/ml (0.00-0.034)
[2024-10-15 19:58] LABS: Barbiturates Screen,Urine Negative ng/ml (<200)
[2024-10-15 19:59] LABS: Amphetamine/Metha Screen,Urine Negative ng/ml (<1000); Benzodiazepines Screen,Urine Negative ng/ml (<200)
[2024-10-15 20:00] LABS: Hepatitis C Ab Qual. W/ RFX REACTIVE (Negative)
[2024-10-15 20:02] LABS: Methadone Screen,Urine Positive ng/ml (<300); Opiate Screen,Urine Negative ng/ml (<300)
[2024-10-15 20:03] LABS: Phencyclidine Screen,Urine Negative ng/ml (<25)
[2024-10-15 20:51] LABS: Triiodothryronine (T3) Uptake 35 % (23.5-40.5)
[2024-10-15 20:52] LABS: Free Thyroxine Index 2.7 ug/dL (5.93-13.13); T4 (Thyroxine) 7.7 ug/dl (5.53-11.0)
[2024-10-15 21:05] LABS: Thyroid Stimulating Hormone 1.03 uIU/mL (0.465-4.68)
[2024-10-15 21:18] LABS: Free T4 (Free Thyroxine) 1.27 ng/dl (0.78-2.19)
--- NOTE | 2024-10-15 22:49 | PC.NURSE ---
report called to TRE Knapp
[2024-10-15 23:08] LABS: Troponin I < 0.01 ng/ml (0.00-0.034)
--- NOTE | 2024-10-15 23:10 | PC.NURSE ---
Pt arrived on unit @ [address]
--- NOTE | 2024-10-15 23:14 | P.HP_ITS ---
<Statement entered by Michael Bucio MD - 10/17/24 16:16> Personally evaluated patient and agree with plan of care as outlined by the ALGEBRA TEACHER. History of Present Illness *Admission Date: 10/15/24 *Reason for visit:: Symptomatic bradycardia *History of present illness: Patient had noted that he had been slightly dizzy feeling weak lately. Come to the ER found that his heart rate is down in the 40s. Appears to be in a first- degree AV block but P waves are present and appear to be associated with the QRS complex. Patient notes no recent injury or chest pain. 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 History of past drug abuse presently on methadone. Significant past medical history was hepatitis C with elevated liver function test. He states he was treated for this last liver function test on today's labs were normal. Spoke with the ER provider who is spoken with Dr. Pulido. Patient is stable at this point in time but does not do well with ambulation. So we will go ahead and admit him to MedSurg but will keep him in the unit for 1 reason. Patient heart rate staying 40 and above at this time if it was to drop would start him on dobutamine 2.5 mg as a starting dose to keep the heart rate closer to 50. If that was to recur I did not want to have to transfer the patient from the floor to the unit so we will keep him in the unit as a MedSurg patient at this time. [facility] Disclaimer: The information contained in this section may have been updated after the elvira nt was seen, as this information can be updated by other users. Medical History (Updated 10/15/24 @ 23:27 by Tomas Brasher APRN) Opioid dependence Fixation hardware in leg Family History (Updated 10/15/24 @ 23:18 by Tomas Brasher APRN) Mother Diabetes Father Coronary artery disease Social History Smoking Status: Current every day smoker tobacco type: cigarettes packs per day: 2 alcohol intake: never current occupational status: employed Travel in the last 8 weeks?: None Have you lived/traveled outside US in past 30 days?: No Contact w/someone who lives/traveled outside US past 30 days?: No Exposure to someone with infectious disease in past 14 days?: No Do you have a fever (greater than 100.4 F or 38 C)?: No Have you tested positive for COVID-19?: No Exposed to someone with COVID-19 in past 14 days?: No Do you have a sore throat?: No Do you have a cough?: No Do you have any weakness?: No Do you have any diarrhea?: No Are you experiencing any unusual bleeding?: No Do you have any muscle aches/pain?: No Do you have any abdominal pain?: No Are you experiencing loss of taste or smell?: No Other Medical History Have you received the Flu Vaccine for this season: No Have you received the Pneumonia Vaccine: No Review of Systems Review of Systems Review of systems:: pertinent systems reviewed and negative unless documented below Constitutional Constitutional: Reports as per HPI, Reports fatigue and Reports weakness Eyes Eyes: Reports as per HPI ENT Ears, Nose, Mouth, and Throat: Reports as per HPI *Cardiovascular Cardiovascular: Reports as per HPI and Reports slow heart rate *Respiratory Respiratory: Reports as per HPI *Gastrointestinal Gastrointestinal: Reports as per HPI *Genitourinary Genitourinary: Reports as per HPI *Musculoskeletal Musculoskeletal: Reports as per HPI Integumentary/Breasts Skin/Breast: Reports as per HPI *Neurologic Neurologic: Reports as per HPI and Reports weakness Psychiatric Psychiatric: Reports as per HPI Endocrine Endocrine: Reports fatigue Hematologic/Lymphatic Hematologic/Lymphatic: Reports as per HPI Allergic/Immunologic Allergic/Immunologic: Reports as per HPI Meds Home Medications and Allergies Home Medications ?Medication ?Instructions ?Recorded ?Confirmed ?Type ibuprofen 800 mg tablet 800 mg PO Q8HP PRN Moderate Pain 10/24/20 Rx #15 tabs sulfamethoxazole 800 1 tab PO BID 14 days #28 tab s 12/16/22 Rx mg-trimethoprim 160 mg tablet (Bactrim DS) albuterol sulfate 90 mcg/actuation 1 inh inhalation QI D #6.7 grams 12/29/22 12/29/22 Rx aerosol inhaler azithromycin 250 mg tablet See Rx Instructions PO .COM PLEX #6 12/29/22 12/29/22 Rx (Zithromax Z-Wiliam) tabs buprenorphine 8 mg-naloxone 2 mg 2 tab sublingual ROXANNE Y 12/29/22 12/29/22 History sublingual tablet mupirocin 2 % topical ointment topical 12/29/22 History cephalexin 500 mg capsule 500 mg PO Q8H 10 days #30 ca ps 07/03/23 Rx sulfamethoxazole 800 1 tab PO Q12H 14 days #28 ta bs 07/03/23 Rx mg-trimethoprim 160 mg tablet (Bactrim DS) New Prescriptions to Start Prescriptions: Allergies Allergy/AdvReac Type Severity Reaction Status Date / Time No Known Allergies Allergy Verified 10/15/24 23:29 Exam Data for Last 24 hours Vital signs and Labs for Last 24 Hours: Temp Pulse Resp BP Pulse Ox O2 Del Method 97.6 F 42 L 20 138/75 98 Room Air 10/15/24 23:05 10/15/24 23:05 10/15/24 23:05 10/15/24 23:05 10/15/24 22:01 10/15/24 23:05 Laboratory Results - last 24 hr 10/15/24 18:33: WBC 5.8, RBC 5.19, Hgb 14.8, Hct 44.9, MCV 86.5, MCH 28.5, MCHC 33.0, RDW 13.0, Plt Count 234, MPV 11.7 H, Neut % (Auto) 43.4, Lymph % (Auto) 37.8, Yell % (Auto) 11.2 H, Eos % (Auto) 5.2, Baso % (Auto) 2.2 H, Neut # (Auto) 2.5, Lymph # (Auto) 2.2, Yell # (Auto) 0.7, Eos # (Auto) 0.3, Baso # (Auto) 0.1, PT 12.1, INR 1.10, Sodium 138, Potassium 4.2, Chloride 98, Carbon Dioxide 29, Anion Gap 15.2 H, BUN 14, Creatinine 0.90, Estimated Creat Clear 125, Estimated GFR 88, Est GFR ( Amer) 106, Glucose 89, Calcium 9.0, Total Bilirubin 0.5, AST 40, ALT 18, Alkaline Phosphatase 86, Troponin I < 0.01, NT-Pro-B Natriuret Pep 146 H, Total Protein 8.3 H, Albumin 4.5, Globulin 3.8 H, Albumin/Globulin Ratio 1.2, TSH 1.03, Free T4 1.27, Free T4 Index 2.7 L, Thyroxine (T4) 7.7, T3 Uptake 35, HCV Ab ANGELICA w/Rflx PCR Qn Reactive, HIV Ag/Ab Combo Qual Negative 10/15/24 19:30: Urine Opiates Screen Negative, Urine Methadone Screen Positive H , Ur Barbituates Screen Negative, Ur Phencyclidine Scrn Negative, Ur Amphetamines Screen Negative, U Benzodiazepines Scrn Negative, Urine Cocaine Screen Negative, U Marijuana (THC) Screen Positive H 10/15/24 22:22: Troponin I < 0.01 I & O for Last 24 hours: Intake & Output 10/13/24 10/14/24 10/15/24 10/16/24 05:59 05:59 05:59 05:59 Weight 210 lb Narrative: Patient positive for methadone normally takes 90 mg in the a.m., positive for THC Constitutional Constitutional: mild distress Comments: Some weakness when walking sometimes lightheaded, examined him in the room after the patient was brought up he is able to stand without weaving he states his balance feels pretty good at the moment *Routine HEENT Exam Head: Present normocephalic and atraumatic Eye: Present EOMI ENT: Present mucous membranes moist *Routine Neck Exam Neck: Present supple Comments: No abnormal sounds were found in the carotids Routine Chest/Breast/Axilla Exam Comments: Patient is able to move well no chest wall pain of any kind was found *Routine Respiratory Exam Respiratory: Present CTA bilaterally, normal respiratory effort, able to speak in complete sentences and symmetric chest movement Comments: Patient is a long-term smoker but on this exam all lung villa were completely clear with symmetrical expansion of the chest wall *Routine Cardiovascular Exam Cardiovascular: Present RRR, Normal S1, Normal S2 and bradycardia Comments: Normal heart sounds slow but basically in the 40s, very slightly. Good capillary refill to extremities. Patient notes that he feels his ankles are a little bit edematous compared to what they have been in the past no pitting edema found *Routine Abdominal Exam Abdominal: Present soft, normoactive bowel sounds and firm Comments: No abdominal discomfort found *Routine Rectal Exam Rectal:: deferred *Routine Genitalia Exam Genitalia:: deferred *Routine Extremities Exam Extremities: Present full ROM, pulses intact and normal capillary refill Comments: Patient is able to stand walk to get up from a chair by himself without any difficulty Routine Back/Spine/Pelvis Exam Back/Spine: Present full ROM Comments: No spinal deficits found the patient is able to move twist stand does not require any assistance with ambulation *Routine Skin Exam Skin: Present intact, dry and warm *Routine Neurological Exam Neurological: Present oriented X3, CN II-XII intact, moving all extremities and normal tone Comments: No neurological deficits Routine Psychiatric Exam Psychiatric: Present normal affect, normal thought process, cooperative, good insight and good judgment Comments: Patient is very calm and easy to speak to H&P: Result Impressions New developing bradycardia that at times is symptomatic Imaging and Cardiology Chest x-ray: Status: image reviewed by me Additional comments: For smoker lung looks relatively clear no significant signs of emphysema. Also cardiac silhouette appears to be normal did not find any sign of any significant aortic aneurysm still awaiting final report EKG shows a rate in the 40s a sinus rhythm with a first-degree AV block Assessment and Plan *Assessment and plan (1) Bradycardia: Status: Acute Category: Medical Code(s): R00.1 - Bradycardia, unspecified (2) Fibrosis of liver: Status: Acute Category: Medical Code(s): K74.00 - Hepatic fibrosis, unspecified (3) Methadone maintenance therapy patient: Status: Acute Category: Medical Code(s): F11.20 - Opioid dependence, uncomplicated Plan Dr. Pulido is been called and consulted by the ER provider. Will monitor the patient looking for any time the heart rate might drop below 40 would then start dobutamine at 2.5 mg. EKG in the morning but continuous monitor throughout the night.. In reviewing patient's history is on methadone had a history of hep C that was treated and apparently cleared. Patient is a long-term smoker but these new symptoms have appeared over the last week with having some lightheadedness some dizziness when walking. Patient did not report any chest pain. Will obtain echocardiogram also orthostatic hypotension blood pressures in the a.m. will continue regular diet at this time and continue methadone as prescribed.
[2024-10-15] MEDS: FAMOTIDINE 20MG TABLET 20 MG PO (23:22)
[2024-10-16] VITALS (25 sets, daily range): BP systolic 102–162; BP diastolic 62–83; PULSE 32–51; RESP 9–16; TEMP 36.4–36.6; O2SAT 93–98
[2024-10-16] MEDS: DOPAMINE HCL/D5W 250 ML 8.17 MG IV (02:03)
--- NOTE | 2024-10-16 02:03 | PC.NURSE ---
Patient was started on Dopamine 2.5 mcg/min due to heart rate staying consistently below 40 beats a minute.
[2024-10-16] MEDS: CALCIUM CARBONATE 500MG CHEWTAB 500 MG PO (02:16)
[2024-10-16 03:02] LABS: Troponin I < 0.01 ng/ml (0.00-0.034)
[2024-10-16 06:58] LABS: Hematocrit 45.8 % (42.0-52.0); Hemoglobin 15.2 g/dL (14.1-18.0); Immature Granulocytes % 0.1 %; Mean Corpuscular HGB Conc 33.2 g/dL (31.8-35.4); Mean Corpuscular Hemoglobin 28.5 pg (27.0-31.2); Mean Corpuscular Volume 85.9 fl (80-94); Nucleated Red Blood Cells % 0 %; Platelet Count 261 K/mm3 (142-424); Red Blood Count 5.33 M/mm3 (4.60-6.20); Red Cell Distribution Width-SD 39.9 fL; White Blood Count 7.7 K/mm3 (4.8-10.8)
[2024-10-16 07:46] LABS: INR 1.08 (0.9-1.1); Prothrombin Time 11.9 seconds (10.1-12.5)
[2024-10-16 07:49] LABS: Alanine Aminotransferase 15 U/L (12-78); Albumin Level 4.4 g/dl (3.5-5.0); Albumin/Globulin Ratio 1.2 (1.1-1.8); Alkaline Phosphatase 91 U/L (38-126); Anion Gap 14.9 mEq/L (5-15); Aspartate Amino Transferase 29 U/L (17-59); Bilirubin,Total 0.6 mg/dl (0.2-1.3); Blood Urea Nitrogen 11 mg/dl (9-20); Calcium 8.6 mg/dl (8.4-10.2); Carbon Dioxide 28 mmol/L (22.0-30.0); Chloride 99 mmol/L (98-107); Cholesterol 206 mg/dl (140-200); Creatinine Clearance Estimated 129 mL/min (50-200); Creatinine,Serum 0.80 mg/dl (0.66-1.25); Estimated Glomerular Filt Rate 100 ml/min (>60); GFR (African American) 121 ML/MIN (>60); Globulin 3.8 g/dL (1.3-3.2); Glucose 92 mg/dl (74-100); HDL Cholesterol 27 mg/dl (40-60); Magnesium 2.0 mg/dl (1.6-2.3); Phosphorous 3.4 mg/dl (2.5-4.5); Potassium 3.9 mmoL/L (3.5-5.1); Sodium 138 mmol/L (136-145); Total Protein,Serum 8.2 g/dl (6.3-8.2); Triglycerides 141 mg/dl (30-150)
[2024-10-16] MEDS: FAMOTIDINE 20MG TABLET 20 MG PO ×2 (09:02→20:19)
[2024-10-16] MEDS: ONDANSETRON 4MG/2ML VIAL 4 MG IV (12:50)
--- OUTSIDE RECORDS SUMMARY | 2024-10-16 14:04 | XMS_ITS | Clinical Summary ---
Author Organization [employer] [facility] Address [address] [place] [address] Phone Care Team Providers Care Sys Dir Name Role Phone Unavailable Unavailable Conditions or [...] mass index [BMI] 27.0-27.9, adult Hepatitis C 42265204 (SNOMED CT) 08/05 Active 08/05 Tiffany Smalls RMA Viral hepatitis C Body mass index (BMI) 27.0-27.9; adult Z68.27 (ICD-10-CM ) 07/29 Removed 07/29 Bernie Ibanez APRN Body mass index [BMI] 27.0-27.9, adult Rhinorrhea 15478959 (SNOMED CT) 07/29 Active 07/29 Bernie Ibanez APRN Nasal discharge Body mass index (BMI) 28.0-28.9; adult Z68.28 (ICD-10-CM ) 07/22 Correction 07/23 Bernie Ibanez APRN Body mass index [BMI] 28.0-28.9, adult Nasal pain 672975208 (SNOMED CT) 07/29 Active 07/29 Bernie Ibanez APRN Pain of nose Body mass index (BMI) 28.0-28.9; adult Z68.28 (ICD-10-CM ) 07/22 Removed 07/23 Verónica Brown APRN Body mass index [BMI] 28.0-28.9, adult Body mass index (BMI) 27.0-27.9; adult Z68.27 (ICD-10-CM ) 07/17 Correction 07/17 Verónica Brown APRN Body mass index [BMI] 27.0-27.9, adult GERD (gastroesop hageal reflux disease) 589743638 (SNOMED CT) 07/22 Active 07/23 Verónica Brown APRN Gastroesophagea l reflux disease Counseling for nutrition Z71.3 (ICD-10-CM ) 07/17 Inactive 07/17 Lilia Mobley APRN Dietary counseling and surveillance Body mass index (BMI) 27.0-27.9; adult Z68.27 (ICD-10-CM ) 07/17 Removed 07/17 Lilia Mobley APRN Body mass index [BMI] 27.0-27.9, adult Insomnia 374081764 (SNOMED CT) 07/17 Active 07/17 Lilia Mobley APRN Insomnia Tobacco User 335346004 (SNOMED CT) 07/17 Active 07/17 Lilia Mobley APRN Tobacco user Depression 15804980 (SNOMED CT) 07/17 Active 07/17 Lilia Mobley APRN Depressive disorder Anxiety Disorder 018947833 (SNOMED CT) 07/17 Active 07/17 Lilia Mobley APRN Anxiety disorder Medications Medication Instructions Start Date Stop Date Generic Name NDC Provider MULTI-VITAMINS TABS Take 1 tablet by mouth once a day multivitamin 27059974327 Lilia Mobley APRN TRAZODONE HCL 100 MG TABS Take 1 tablet by mouth at bedtime trazodone 74284800195 Lilia Mobley APRN Vistaril 25 mg capsule Take 1 to 2 capsule by mouth at bedtime as needed for sleep hydroxyzine pamoate 70950293571 Bernie Ibanez EMMA AMITRIPTYLINE HCL 50 MG TABS Take 1 tablet by mouth every night amitriptyline 21471082578 Lilia Mobley APRN CLARITIN 10 MG TABS Take 1 tablet by mouth once a day loratadine 05332613490 Bernie Ibanez EMMA MUPIROCIN 2 % OINT Apply a small amount as directed once or twice a day for 7 to 10 days, to affected nostril. mupirocin 81506868271 Bernie Ibanez APRN Vistaril 25 mg capsule Take 1 to 2 capsule by mouth at bedtime as needed for sleep hydroxyzine pamoate 55883283835 Bernie Ibanez EMMA GOODSENSE NICOTINE 4 MG LOZG Hold 1 lozenge to inside of mouth (buccal) every two hours as needed Do not exceed 5 lozenges in 6 hours or 20 in 24 hours nicotine (polacrilex) 63647631002 Lilia Mobley APRN OMEPRAZOLE 20 MG CPDR Take 1 capsule by mouth once a day FOR ACID REFLUX omeprazole 96163421242 Verónica Brown APRN NICOTINE STEP 1 21 MG/24HR PT24 APPLY 1 PATCH TO SKIN EVERY MORNING DIRECTED REMOVE AND REPLACE PATCH DAILY FOR 6 TO 8 WEEKS. THEN DECREASE TO THE 14 MG PATCHES. nicotine 49537316709 Verónica Brown APRN GOODSENSE NICOTINE 4 MG LOZG Hold 1 lozenge to inside of mouth (buccal) every two hours as needed Do not exceed 5 lozenges in 6 hours or 20 in 24 hours nicotine (polacrilex) 53990196427 Liliarose Mobley EMMA TRAZODONE HCL 50 MG TABS Take 1 tablet by mouth at bedtime trazodone 25245569246 Tiffany PERKINS TRAZODONE HCL 100 MG TABS Take 1 tablet by mouth at bedtime trazodone 21250368459 Lilia Mobley APRN TRAZODONE HCL 50 MG TABS Take 1 tablet by mouth at bedtime trazodone 21317114119 Tiffany PERKINS BUPRENORPHINE HCL-NALOXONE HCL 8-2 MG SUBL buprenorphine-na loxone 29411852828 Tiffany PERKINS Medications Administered No information available. [...] in Blood ABS NEUTROPH 5517 CELLS/UL 10*3/uL [phone] N Neutrophils [#/volume] in Blood MPV 12.1 [...] Plan of Care Type Date Detail Referral [facility], [address] [place] [address] [address], [place], [address] Referral excluded fr om report: Pending order T1 CBC with diff Pending order T1 CMP Pending order T1 Acute Hepatit s Panel Pending order T1 HIV 1/2 Ag & Ab 4th gen -consent required Pending order T1 TSH reflex to free T4 Pending order T1 HGBA1c Patient education Patient Educat ion Given Procedures Code Procedure Name Date Entry Date [facility]-[id number] Medication Recon[place] II 4004F Patient screened for tobacco use and received tobacco cessation intervention CPT-3074F Most recent systolic blood pressure <130 mm Hg CPT-3078F Most recent diastoli c blood pressure <80 mm Hg [id number] Giving encouragement to exercise SCT-[id number] Dietary management education/guidance/counseling GASTRO ST E PHYSICIA [facility]-[id number] Medication Reconciliation CPT II 4004F Patient screened for tobacco use and received tobacco cessation intervention CPT-3075F Most recent systolic blood pressure 130-139 mm Hg CPT-3079F Most recent diastoli c blood pressure 80-89 mm Hg CPT-1159F Medication list docu mented in medical record CPT-1160F Review of all medica tions by a prescribing practitioner [facility] 6399 T1 CBC with diff [facility] 27940 T1 CMP [facility] 86214 T1 Acute Hepatits Panel 2021 [facility] 76764 T1 HIV 1/2 Ag & Ab 4 th gen -consent required [facility] 45950 T1 TSH reflex to free T4 05/10/24 [facility] 496 T1 HGBA1c SCT-[id number] Medication Reconciliation SCT-[id number] Giving encouragement to exercise CPT-3074F Most recent systolic blood pressure <130 mm Hg CPT-3078F Most recent diastoli c blood pressure <80 mm Hg CPT-1159F Medication list docu mented in medical record CPT-1160F Review of all medica tions by a prescribing practitioner SCT-[id number] Medication Reconciliation SCT-[id number] Giving encouragement to exercise SCT-[id number] Dietary management education/guidance/counseling CPT II 4004F Patient [...]
--- OUTSIDE RECORDS SUMMARY | 2024-10-16 14:05 | XMS_ITS | Clinical Summary ---
Author Organization Healthcare Address [address] [place] [address] Care Team Providers Care Section Chief Name Role Phone Pcp, No Primary Care Provider Unavailabl e Allergies No known active allergies Medications ibuprofen 400 MG tablet Take 2 tablets by mouth in the morning and 2 tablets in the evening and 2 tablets before bedtime. 60 tablet 07/15/2024 Active Encounters Date Type Department Care Team Description 07/22/2024 Orders Only [facility] Orthopaedic Surgery & Sports Medicine [address] [place] [address] Calvin Mcneill MD from Last 3 Months [...] 06/24/2016 UKY-Zoster Vaccines (1 of 2) 2018 ORE-AJOHO-16 Vaccine (4 - season) 2023 03/13/2021, 07/19/2020, [...] patient's age to complete this topic Insurance [facility] Care Teams Section Chief Relationship Specialty Start Date End Date Pcp, Maryam [address] [place] [address] PCP - General Family Medicine 07/15/24
--- OUTSIDE RECORDS SUMMARY | 2024-10-16 14:05 | XMS_ITS | Clinical Summary ---
Author Organization [facility] Address [facility] [place] [address] Care Team Providers Care Senior Climate Advisor Name Role Phone Pcp, No Primary Care [...] release of HIV test results or diagnoses. [id number] Allergies No known active allergies Medications [...] Immunization: Influenza (MyChart) (#1) 2024 Care Teams Senior Climate Advisor Relationship Specialty Start Date End Date Pcp, No No Address PCP - General 06/08/23
--- OUTSIDE RECORDS SUMMARY | 2024-10-16 14:05 | XMS_ITS | Clinical Summary ---
Author Organization [facility] Address [address] [place] [address] Care Team Providers Care Electronic Equipment Set Up Operator Name Role Phone Unavailable Primary Care Provider [...] Treatment Not on file Insurance [employer] [facility] Address: [address] [place] [address] [place]
[2024-10-16] MEDS: PROMETHAZINE HCL 25MG/ML 1ML VIAL 12.5 MG IV ×2 (17:00→22:39)
[2024-10-16] MEDS: SODIUM CHLORIDE 0.9% 25ML BAG 25 ML IV ×2 (17:00→22:39)
--- NOTE | 2024-10-16 17:08 | ECG_ITS ---
APPROVED REPORT Exam: Resting ECG HR:42 bpm ECG Measurements Heart Rate 42 AXES NC 250 P 64 QRSd 85 QRS -42 QT 499 T 22 QTc 439 Conclusion SINUS BRADYCARDIA WITH FIRST DEGREE AV BLOCK LEFT AXIS DEVIATION [QRS AXIS < -30] POSSIBLE RIGHT VENTRICULAR CONDUCTION DELAY [RSR (QR) IN V1/V2] ABNORMAL ECG UNCONFIRMED REPORT Electronically signed by : Vincent Kelly MD 10/19/2024 16:19:10
--- NOTE | 2024-10-16 17:32 | PC.NURSE ---
9591 - contacted for pt's c/o nausea and not feeling well w/ no available meds. Concern for withdrawal from methadone since not receiving his daily dose. ordered: 12.5 mg Phenergan IV Stat EKG 50 mg Methadone PO EKG obtained and reviewed by . Phenergan and methadone admin per JUN. Pt currently resting in bed w/ eyes closed. No further needs voiced @ this time. Call quinteros w/in reach. Bed alarm in place.
--- NOTE | 2024-10-16 21:44 | EXP.PN ---
Subjective *Date: 10/16/24 *Time: 21:44 Exam Data for Last 24 hours Vital signs and Labs for Last 24 Hours: Temp Pulse Resp BP Pulse Ox O2 Del Method 97.7 F 40 L 10 L 126/74 93 L Room Air 10/16/24 20:00 10/16/24 20:00 10/16/24 20:00 10/16/24 20:00 10/16/24 20:00 10/16/24 20:59 Laboratory Results - last 24 hr 10/15/24 22:22: Troponin I < 0.01 10/16/24 02:14: Troponin I < 0.01 10/16/24 06:01: WBC 7.7 D, RBC 5.33, Hgb 15.2, Hct 45.8, MCV 85.9, MCH 28.5, MCHC 33.2, RDW 12.8, Plt Count 261, MPV 12.0 H, Neut % (Auto) 56.0, Lymph % (Auto) 26.0, Hemphill % (Auto) 11.3 H, Eos % (Auto) 4.7, Baso % (Auto) 1.9, Neut # (Auto) 4.3, Lymph # (Auto) 2.0, Hemphill # (Auto) 0.9, Eos # (Auto) 0.4, Baso # (Auto) 0.2, PT 11.9, INR 1.08, Sodium 138, Potassium 3.9, Chloride 99, Carbon Dioxide 28, Anion Gap 14.9, BUN 11, Creatinine 0.80, Estimated Creat Clear 129, Estimated GFR 100, Est GFR ( Amer) 121, Glucose 92, Calcium 8.6, Phosphorus 3.4, Magnesium 2.0, Total Bilirubin 0.6, AST 29 D, ALT 15, Alkaline Phosphatase 91, Total Protein 8.2, Albumin 4.4, Globulin 3.8 H, Albumin/Globulin Ratio 1.2, Triglycerides 141, Cholesterol 206 H, LDL Cholesterol Direct 130.83 H, VLDL Cholesterol 28, HDL Cholesterol 27 L, Cholesterol/HDL Ratio 7.6 H I & O for Last 24 hours: Intake & Output 10/13/24 10/14/24 10/15/24 10/16/24 23:59 23:59 23:59 23:59 Intake Total 925.888 / 925.888 Output Total 2550 / 2550 Balance -1624.112 / -1624.112 Weight 87.1 kg Constitutional Constitutional: no acute distress *Routine HEENT Exam Head: Present normocephalic Eye: Present EOMI and PERRL ENT: Present mucous membranes moist *Routine Neck Exam Neck: Present supple; Absent lymphadenopathy *Routine Respiratory Exam Respiratory: Present CTA bilaterally *Routine Cardiovascular Exam Cardiovascular: Present bradycardia *Routine Abdominal Exam Abdominal: Present soft and normoactive bowel sounds; Absent tenderness *Routine Extremities Exam Extremities: Absent cyanosis, clubbing or edema *Routine Skin Exam Skin: Present warm; Absent rash *Routine Neurological Exam Neurological: Present alert and oriented X3 Assessment and Plan *Assessment and plan (1) Bradycardia: Status: Acute Category: Medical Code(s): R00.1 - Bradycardia, unspecified Plan Jericho Feng is a 53-year-old male with medical history of former opioid use disorder on methadone who presents with 3 weeks of exercise intolerance, spotty vision, and presyncopal events. Patient states prior to 3 weeks, he was in good health. Denies chest pain, shortness of breath, fever/chills, abdominal pain. Only takes methadone at this time. On arrival, patient's heart rate was in the 40s with EKG showing first-degree AV block. Vitals otherwise normal. CBC, CMP unremarkable. Dr. Pulido was consulted by the ED, who recommended dopamine drip with goal heart rate of 40. Case discussed with ED provider and decision was made to admit patient for symptomatic bradycardia. #Symptomatic bradycardia #First-degree AV block #Suspected sick sinus syndrome #Exercise intolerance #Presyncope ? Several week onset of exercise intolerance, spotty vision, presyncopal events. ? EKG revealing heart rate in the 30s to 40s, with first-degree AV block. No known cardiac history. ? Continue dopamine drip for goal heart rate of 40. ? TSH normal, UDS positive for methadone and THC. ? Follow-up ECHO in the morning. ? Cardiology consulted, pending further recommendations. N.p.o. at midnight for possible LHC, pacemaker. #Former opiate use disorder ? Awaiting friend to bring and methadone bottle from home for confirmation. Takes methadone 90 mg daily. No withdrawal symptoms at this time. Full code DVT prophylaxis: Lovenox 40 mg
[2024-10-17] VITALS (30 sets, daily range): BP systolic 89–162; BP diastolic 55–85; PULSE 39–114; RESP 8–20; TEMP 36.4–36.8; O2SAT 90–100; BMI 28.3
[2024-10-17] MEDS: DOPAMINE HCL/D5W 250 ML 24.5 MG IV (02:11)
--- NOTE | 2024-10-17 03:18 | PC.NURSE ---
Patient complaining of dizziness and nausea at this time. Patient heart rate dropped down to 36. Patient is on dopamine drip at 7.5mcg/min. EKG was obtained, patient was given 4mg of zofran iv and Nan Brasher APRN was notified to come and look at the EKG. Nan Brasher APRN said patient may end up needing to have atropine pushed and may have to also be externally paced until cardiology comes and sees him.
--- NOTE | 2024-10-17 03:20 | ECG_ITS ---
APPROVED REPORT Exam: Resting ECG HR:40 bpm ECG Measurements Heart Rate 40 AXES OR 231 P 56 QRSd 95 QRS -5 QT 526 T 42 QTc 456 Conclusion SINUS BRADYCARDIA WITH FIRST DEGREE AV BLOCK POSSIBLE LEFT ATRIAL ENLARGEMENT [-0.1mV P-WAVE IN V1/V2] POSSIBLE RIGHT VENTRICULAR CONDUCTION DELAY [RSR (QR) IN V1/V2] CRITICAL TEST RESULT UNCONFIRMED REPORT Electronically signed by : Vincent Kelly MD 10/19/2024 16:18:17
[2024-10-17] MEDS: ONDANSETRON 4MG/2ML VIAL 4 MG IV (03:24)
--- NOTE | 2024-10-17 04:15 | EXP.EVENT.NO ---
Problem: On evaluating twelve-lead EKG comparing the one done in the emergency room to 1 done in the ICU. Find that there is a lot of artifact. Question muscle causing this.. Began to question the patient more about history found out that he actually had a tip of his index finger was cut off in a garbage truck approximately a month ago. But that it healed completely but then he began to get some red spots on his back and then his neck those have improved he only has 2 left on his abdomen. 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 Exam right hand and 6 finger is missing the nailbed and part of the tip of the finger., Also noting 2 red areas skin on the abdomen that appears to be a type of erosion question secondary skin infection without drainage plan for the infection on the abdomen will add Bactroban to see if we get those 2 places to heal as the ones that were similar on his back and neck has spontaneously healed in the past they were approximately 2 to 3 weeks old. Patient noted that after that incident with the finger and then with the red spot showing up on his back and neck he just has felt terrible.. Since then has been found to have a first-degree AV block with sinus bradycardia basically in 40.. Will evaluate need for possible secondary infection looking for rare things such as Lyme carditis., Will bring my suspicions to the oncoming provider
[2024-10-17 06:23] LABS: Hematocrit 50.5 % (42.0-52.0); Hemoglobin 16.7 g/dL (14.1-18.0); Immature Granulocytes % 0.2 %; Mean Corpuscular HGB Conc 33.1 g/dL (31.8-35.4); Mean Corpuscular Hemoglobin 28.2 pg (27.0-31.2); Mean Corpuscular Volume 85.2 fl (80-94); Nucleated Red Blood Cells % 0 %; Platelet Count 269 K/mm3 (142-424); Red Blood Count 5.93 M/mm3 (4.60-6.20); Red Cell Distribution Width-SD 38.6 fL; White Blood Count 8.6 K/mm3 (4.8-10.8)
[2024-10-17 06:33] LABS: Albumin Level 4.6 g/dl (3.5-5.0); Chloride 98 mmol/L (98-107); Potassium 4.0 mmoL/L (3.5-5.1); Sodium 139 mmol/L (136-145)
[2024-10-17 06:35] LABS: Blood Urea Nitrogen 9 mg/dl (9-20); Creatinine Clearance Estimated 114 mL/min (50-200); Creatinine,Serum 0.90 mg/dl (0.66-1.25); Estimated Glomerular Filt Rate 88 ml/min (>60); GFR (African American) 106 ML/MIN (>60)
[2024-10-17 06:36] LABS: Alanine Aminotransferase 16 U/L (12-78); Albumin/Globulin Ratio 1.0 (1.1-1.8); Alkaline Phosphatase 90 U/L (38-126); Anion Gap 17.0 mEq/L (5-15); Aspartate Amino Transferase 30 U/L (17-59); Bilirubin,Total 0.5 mg/dl (0.2-1.3); Calcium 9.3 mg/dl (8.4-10.2); Carbon Dioxide 28 mmol/L (22.0-30.0); Globulin 4.4 g/dL (1.3-3.2); Glucose 117 mg/dl (74-100); Total Protein,Serum 9.0 g/dl (6.3-8.2)
--- NOTE | 2024-10-17 06:38 | PC.NURSE ---
Patient has been alert and oriented all night. Patient gave himself a sponge bath. When he completed his sponge bath he became nauseated. Patient was given medication for it. Patients Dopamine drip is now at 10.5mcg/min due to his heart rate continuing to drop below 40. Anytime patient is standing for more then 2 minutes he becomes nauseated. Suggestion was made for him to no longer get up on his own to have someone with him incase he became hypotensive, or no longer be able to get out of the bed at all. Patient is having an echo done this morning and potentially going down for left sided heart cath and possible pacemaker placement. Patient is on room air.
[2024-10-17 07:08] LABS: Hemoglobin A1C 6.5 % (4.0-6.0)
--- NOTE | 2024-10-17 08:34 | P.CONPHA_ITS ---
Pharmacy Intervention Comments: MEDICATION RECONCILIATION COMPLETED ON PATIENT BY CALLING [facility] TO VERIFY METHADONE DOSE. -JORGE VÁSQUEZ, SHEYLAD
--- NOTE | 2024-10-17 08:34 | HMH.PHAINT1 ---
Pharmacy Intervention Comments: MEDICATION RECONCILIATION COMPLETED ON PATIENT BY CALLING [facility] TO VERIFY METHADONE DOSE. -JORGE VÁSQUEZ, SHEYLAD
--- NOTE | 2024-10-17 08:43 | EXP.CARD.CON ---
History of Present Illness History of Present Illness Consult date: 10/17/24 Requesting physician: Michael Bucio Chief complaint: Weakness Additional Medical History:: 1. Tobacco use 2. History of drug use, now on methadone 3. History of hepatitis C and fibrosis of the liver 4. Symptomatic bradycardia with first-degree AV block, 10/2024 A. Status post pacemaker implantation 10/17/2024 with Mena Assurity MRI PM 2272 device 5. Strong family history of coronary artery disease with dad having bypass at age 35 History of present illness: 53-year-old white male with 2 to 3 weeks history of weakness, fatigue and slight dizziness came to the ER for further evaluation. Heart rate noted to be in the 40s with first-degree AV block. Patient subsequently admitted and started on dopamine with improvement in blood pressure but heart rate still in the 40s. Discussion was undertaken about pacemaker with recommendation for implantation. Patient was agreeable to proceed in this fashion [facility] Disclaimer: The information contained in this section may have been updated after the patient was seen, as this information can be updated by other users. Medical History (Updated 10/17/24 @ 15:13 by MELVIN Kilgore) Opioid dependence Fixation hardware in leg Surgical History Hx of exploratory laparotomy Family History Mother Diabetes Father Coronary artery disease Social History Smoking Status: Current every day smoker tobacco type: cigarettes packs per day: 2 alcohol intake: never substance use type: former substance user current occupational status: employed Travel in the last 8 weeks?: None Review of Systems Review of Systems Review of systems:: pertinent systems reviewed and negative unless documented below Constitutional Constitutional: Reports weakness *Cardiovascular Cardiovascular: Denies chest pain, Reports lightheadedness and Reports slow heart rate *Neurologic Neurologic: Reports as per HPI and Reports weakness Exam Data for Last 24 hours Vital signs and Labs for Last 24 Hours: Temp Pulse Resp BP Pulse Ox O2 Del Method 98 F 44 L 13 154/70 H 94 L Room Air 10/17/24 08:01 10/17/24 08:01 10/17/24 08:01 10/17/24 08:01 10/17/24 08:01 10/17/24 08:01 Laboratory Results - last 24 hr 10/17/24 05:32: WBC 8.6, RBC 5.93, Hgb 16.7, Hct 50.5, MCV 85.2, MCH 28.2, MCHC 33.1, RDW 12.5, Plt Count 269, MPV 11.8 H, Neut % (Auto) 61.1, Lymph % (Auto) 23.7, [place] % (Auto) 9.8 H, Eos % (Auto) 3.3, Baso % (Auto) 1.9, Neut # (Auto) 5.2, Lymph # (Auto) 2.0, [place] # (Auto) 0.8, Eos # (Auto) 0.3, Baso # (Auto) 0.2, ESR 1, Sodium 139, Potassium 4.0, Chloride 98, Carbon Dioxide 28, Anion Gap 17.0 H, BUN 9, Creatinine 0.90, Estimated Creat Clear 114, Estimated GFR 88, Est GFR ( Amer) 106, Glucose 117 H D, Hemoglobin A1c 6.5 H, Calcium 9.3, Total Bilirubin 0.5, AST 30, ALT 16, Alkaline Phosphatase 90, Total Protein 9.0 H, Albumin 4.6, Globulin 4.4 H, Albumin/Globulin Ratio 1.0 L I & O for Last 24 hours: Intake & Output 10/14/24 10/15/24 10/16/24 10/17/24 11:59 11:59 11:59 11:59 Intake Total 511.842 / 084.405 9757.891 / 1501.891 Output Total 1950 / 2150 1750 / 1750 Balance -1438.158 / -1638.158 -248.109 / -248.109 Weight 192 lb 0.362 oz 190 lb 14.725 oz Constitutional Constitutional: no acute distress Comments: Drifts off to sleep quickly but easily arousable *Routine Respiratory Exam Respiratory: Present decreased breath sounds and CTA bilaterally *Routine Cardiovascular Exam Cardiovascular: Present bradycardia; Absent murmur, gallop or rubs *Routine Extremities Exam Extremities: Absent edema Meds Home Medications and Allergies Home Medications ?Medication ?Instructions ?Recorded ?Confirmed ?Type methadone 10 mg/mL oral concentrate 95 mg PO DAILY 10/17/24 10/17/24 History New Prescriptions to Start Prescriptions: Allergies Allergy/AdvReac Type Severity Reaction Status Date / Time No Known Allergies Allergy Verified 10/15/24 23:29 Assessment and Plan *Assessment and plan (1) Symptomatic bradycardia: Status: Acute Category: Medical Code(s): R00.1 - Bradycardia, unspecified (2) Methadone maintenance therapy patient: Status: Acute Category: Medical Code(s): F11.20 - Opioid dependence, uncomplicated (3) HCV (hepatitis C virus): Status: Acute Qualifiers: Viral hepatitis chronicity: chronic Hepatic coma status: without hepatic coma Qualified Code(s): B18.2 - Chronic viral hepatitis C Category: Medical Code(s): B19.20 - Unspecified viral hepatitis C without hepatic coma (4) Tobacco use: Status: Acute Category: Social Hx Code(s): Z72.0 - Tobacco use Plan 1. Symptomatic bradycardia with First-degree AV block -Dopamine improved blood pressure but heart rate still in the 40s -Troponins and thyroid functions normal -Plan for dual-chamber pacemaker today 2. Tobacco use, usually 2 packs/day -Cessation recommend 3. Family history of early coronary artery disease with father having bypass at 35 -Will plan outpatient ischemic workup 4. Methadone use -UDS positive for marijuana also 5. Elevated hemoglobin A1c at 6.5 -Defer to hospitalist 6. Hyperlipidemia with LDL 130 and HDL 27 -Consider statin therapy as an outpatient 7. History of hepatitis C with elevated LFTs -LFTs normal this admission Proceed with dual-chamber pacemaker today. Monitor overnight with plans for discharge home tomorrow.
[2024-10-17] MEDS: FAMOTIDINE 20MG TABLET 20 MG PO ×2 (09:48→20:32)
[2024-10-17] MEDS: MUPIROCIN 2% OINTMENT 22GM TUBE TP ×2 (09:48→20:33)
--- NOTE | 2024-10-17 10:29 | IR_ITS ---
APPROVED REPORT Patient Location: Inpatient Valet Parker: ESPINOZA Reyna RT (R) PROCEDURES 1. Pocket formation for Permanent Pacemaker Placement. 2. Placement of an atrial sensing and pacing coil into the right atrial appendage. 3. Placement of a ventricular sensing and pacing coil in the right ventricular apex. 4. Permanent Pacemaker Placement. INDICATION Symptomatic bradycardia Informed consent was obtained prior to the procedure. COMPLICATIONS None Estimated Blood Loss: Less than 10 mls TECHNIQUE 1% Lidocaine with epinephrine used to anesthetized the left anterior aspect of the chest. Scalpel was used to make the initial cutaneous incision while electrocautery was used to dissect down tinto the fascia. The fascia was lifted off the pectoralis muscle and digitally manipulated creating a pocket for the pacemaker. The patient was then placed in Trendelenburg position and the subclavian vein was accessed twice via the Selinger technique, there are two wires in the vein. A 6 Omani sheath was placed under fluoroscopic guidance into the subclavian vein over one of the wires while keeping the other wire in place within the subclavian vein. The dilator was removed from the sheath. Using fluoroscopic guidance, the ventricular lead was placed into the right ventricular apex, screwed and secured into place. Electronic interrogation proved acceptable thresholds and voltage within the lead. Using 3-0 silk, the ventricular lead was then secured into place. Lead was secured to the facia using the 3-0 silk. Following this, the sheath was pealed away. An additional 6 [place]i fresh sheath and dilator was placed over the existing wire. Using fluoroscopic guidance, the atrial lead was the placed into the right atrial appendage and screwed and secured in place. Electrical interrogation demonstrated acceptable thresholds and voltage number. The atrial lead was then secured into place using 3-0 silk. 1 gram of Ancef was used to flush the pocket. Following the pacemaker generator being secured to the fascia and in place, Monocryl was used to close the subcutaneous layers while sherry were used to close the cutaneous layer. A pressure dressing was placed and the patient was transferred to the postop holding area in stable condition for postoperative care. INTERROGATION Generator Model number: [facility], [id number] Generator Serial number: [id number] Atrial lead model number: Tendril STS, 52cm, 2088TC Atrial lead serial number: [id number] P-wave: 3.6mV Impedance: 529 ohms Threshold: 1.0V@0.4ms Right Ventricular lead model number: Andriy STS, 58cm, 2087TC Right Ventricular lead serial number: [id number] R-wave: 10.5mV Impedance: 710 ohms Threshold: 0.6V@0.4ms Pacing Parameters: Mode: DDDR Base/Max Track:60 ppm / 130 ppm No diaphragmatic stimulation at 10 volts. IMPRESSION 1. Successful pocket formation for Permanent Pacemaker Placement. 2. Successful placement of an atrial sensing and pacing coil into the right atrial appendage. 3. Successful placement of a ventricular sensing and pacing coil in the right ventricular apex. 4. Successful permanent Pacemaker Placement. PLAN 1. Post op wound care Electronically signed by : Barber Pulido MD 10/17/2024 14:27:11
[2024-10-17] MEDS: DOPAMINE HCL/D5W 250 ML 34.3 MG IV (10:36)
[2024-10-17] MEDS: DOXYCYCLINE HYCL 100 MG TABLET PO ×2 (12:00→20:32)
--- NOTE | 2024-10-17 12:34 | PC.NURSE ---
1230 - Pt transported to [facility] by ICU nurse and [facility] staff. Report given to [facility] staff.
[2024-10-17] MEDS: LIDOCAINE 1% W/EPI 1:100,000 20ML VIAL IJ (13:02)
--- NOTE | 2024-10-17 14:00 | XR_ITS ---
FINAL REPORT TECHNIQUE: Single view chest CLINICAL HISTORY: Confirm pacemaker/AID placement FINDINGS: A single view of the chest was obtained. There has been interval placement of a 2-lead left subclavian pacemaker. Leads are in good position. The heart and mediastinum are within normal limits. The lungs are clear. There is no pneumothorax. IMPRESSION: No pneumothorax following left pacemaker placement. Reviewed, Interpreted and Dictated by Shelly Lopez MD Transcribed by Lizette Wallace Authenticated and [facility]
--- NOTE | 2024-10-17 14:12 | SUR.PHASEII ---
radiology at bedside.
--- NOTE | 2024-10-17 15:06 | EXP.ANES.CKL ---
[facility] Disclaimer: The information contained in this section may have been updated after the patient was seen, as this information can be updated by other users. Medical History Opioid dependence Fixation hardware in leg Surgical History Hx of exploratory laparotomy Family History Mother Diabetes Father Coronary artery disease Social History Smoking Status: Current every day smoker tobacco type: cigarettes packs per day: 2 alcohol intake: never substance use type: former substance user current occupational status: employed Travel in the last 8 weeks?: None [facility] Anesthesia Checklist Patient Identification Patient Identification: Arm Band and Family Structural Data Admitted From: Inpatient Planned Operative Procedure/s: Pacemaker Consent for Planned Operative Procedure(s) Verified: Yes Verified Documents: Surgical Consent and History and Physical NPO Status Verified Time NPO: 00:00 Additional verifications Patient : No Anesthesia Reactions: No Hx Blood Transfusions: No Blood Transfusion Reaction: No Cephalosporin Allergy: No Previous Colonoscopy: No Airway Assessment Mallampati Score:: Class II C-Spine Mobility Assessed: Yes TMJ Mobility Assessed: Yes Dentition: Poor Dentition Neurological Assessment Level of Consciousness: Awake, Alert, Appropriate and Follows Commands Hx Seizures: No Numbness or tingling in extremities: No Anesthesia Plan Anesthesia Risk discussed: Yes ASA Class: III Anesthesia Type: MAC
--- NOTE | 2024-10-17 16:54 | P.PN_ITS ---
Subjective *Date: 10/17/24 *Time: 16:54 Interval history: Patient doing well, awaiting permanent pacemaker by cardiology. Has rash over torso and back that began 3 weeks ago. Started doxycycline. Exam Data for Last 24 hours Vital signs and Labs for Last 24 Hours: Temp Pulse Resp BP Pulse Ox O2 Del Method 98 F 79 18 95/71 L 93 L Room Air 10/17/24 14:30 10/17/24 15:30 10/17/24 15:30 10/17/24 15:30 10/17/24 15:30 10/17/24 15:30 Laboratory Results - last 24 hr 10/17/24 05:32: WBC 8.6, RBC 5.93, Hgb 16.7, Hct 50.5, MCV 85.2, MCH 28.2, MCHC 33.1, RDW 12.5, Plt Count 269, MPV 11.8 H, Neut % (Auto) 61.1, Lymph % (Auto) 23.7, [place] % (Auto) 9.8 H, Eos % (Auto) 3.3, Baso % (Auto) 1.9, Neut # (Auto) 5.2, Lymph # (Auto) 2.0, [place] # (Auto) 0.8, Eos # (Auto) 0.3, Baso # (Auto) 0.2, ESR 1, Sodium 139, Potassium 4.0, Chloride 98, Carbon Dioxide 28, Anion Gap 17.0 H, BUN 9, Creatinine 0.90, Estimated Creat Clear 114, Estimated GFR 88, Est GFR ( Amer) 106, Glucose 117 H D, Hemoglobin A1c 6.5 H, Calcium 9.3, Total Bilirubin 0.5, AST 30, ALT 16, Alkaline Phosphatase 90, Total Protein 9.0 H, Albumin 4.6, Globulin 4.4 H, Albumin/Globulin Ratio 1.0 L I & O for Last 24 hours: Intake & Output 10/14/24 10/15/24 10/16/24 10/17/24 23:59 23:59 23:59 23:59 Intake Total 1048.000 / 2571.360 3316.000 / 1082.000 Output Total 2950 / 2950 750 / 750 Balance -1902.000 / -1467.000 332.000 / 332.000 Weight 87.1 kg 86.6 kg Constitutional Constitutional: no acute distress *Routine HEENT Exam Head: Present normocephalic Eye: Present EOMI and PERRL ENT: Present mucous membranes moist *Routine Neck Exam Neck: Present supple; Absent lymphadenopathy *Routine Respiratory Exam Respiratory: Present CTA bilaterally *Routine Cardiovascular Exam Cardiovascular: Present RRR *Routine Abdominal Exam Abdominal: Present soft and normoactive bowel sounds; Absent tenderness *Routine Extremities Exam Extremities: Absent cyanosis, clubbing or edema *Routine Skin Exam Skin: Present warm and rash *Routine Neurological Exam Neurological: Present alert and oriented X3 Assessment and Plan *Assessment and plan (1) Bradycardia: Status: Acute Category: Medical Code(s): R00.1 - Bradycardia, unspecified Plan Jericho Fneg is a 53-year-old male with medical history of former opioid use disorder on methadone who presents with 3 weeks of exercise intolerance, spotty vision, and presyncopal events. Patient states prior to 3 weeks, he was in good health. Denies chest pain, shortness of breath, fever/chills, abdominal pain. Only takes methadone at this time. On arrival, patient's heart rate was in the 40s with EKG showing first-degree AV block. Vitals otherwise normal. CBC, CMP unremarkable. Dr. Pulido was consulted by the ED, who recommended dopamine drip with goal heart rate of 40. Case discussed with ED provider and decision was made to admit patient for symptomatic bradycardia. #Symptomatic bradycardia #First-degree AV block #Exercise intolerance #Presyncope ? Several week onset of exercise intolerance, spotty vision, presyncopal events. ? EKG revealing heart rate in the 30s to 40s, with first-degree AV block. No known cardiac history. ? TSH normal, UDS positive for methadone and THC. ? ECHO with normal biventricular systolic function without valvular issues. ? Cardiology consulted, s/p permanent pacemaker on 10/17/2024. Recommend monitoring overnight anticipated discharge tomorrow. ? Continuous cardiac telemetry. #Rash ? Patient has multiple erythematous lesions of different staging over torso and back. States it began about 3 weeks ago, works outside a lot. ? Started doxycycline milligrams twice daily. Follow-up response. Will consider steroids on discharge. #Former opiate use disorder ? Started methadone 95 mg daily. Full code DVT prophylaxis: Lovenox 40 mg
--- NOTE | 2024-10-17 18:50 | PC.NURSE ---
arrived by w/c from ICU
[2024-10-17] MEDS: OXYCODONE 5MG W/APAP 325MG TABLET 1 EACH PO ×2 (20:31→22:25)
--- NOTE | 2024-10-17 20:39 | CA_ITS ---
APPROVED REPORT EXAM: Comprehensive 2D, Doppler, and color-flow Echocardiogram Web Site Specialist: Lara Jewell RVT Ht: 5 ft 9 in Wt: 210lbs BSA: 2.11 BP: 125/65 mmHg Indications: BRADYCARDIA 2D Dimensions LA Volume 44.00 mL LA Volume Index 20.85 mL/m2 (M/F) 16-34 M-Mode Dimensions RVDd 3.40 cm (0.9-2.6) LA Diam 3.92 cm (1.9-4.0) LVDd 4.93 cm (3.5-5.7) LVDs 3.19 cm (3.5-5.7) IVSd 0.51 cm (0.6-1.1) PWd 0.81 cm (0.6-1.1) EF (Teich) 64.50% FS 35.30% EDV (Teich) 114.40 mL TAPSE 3.67 (<1.7) ESV (Teich) 40.60 mL LV Diastology E Decel Time 173 (160-240 msec) E/A Ratio 1.0 Aortic Valve TED Index 1.34 cm2/m2 AoV Peak Kehinde. 165.0 (50-130 cm/s) AO Peak GR. 10.90 mmHg AO Mean GR. 6.50 (<5 mmHg) AO VTI 34.0 (18-25 cm) TED (VTI) 2.90 (2.5-4.5 cm2) Mitral Valve MV E Max Kehinde. 93.0 (40-130 cm/s) MV A Velocity 95.0 (40-130 cm/s) E/A Ratio 0.98 MV PHT 51.0 ms Pulmonary Valve PV Peak Velocity 81.0 (50-150 cm/s) Left Ventricle The left ventricle is normal size. The left ventricular systolic function is normal. The left ventricular ejection fraction is within the normal range. There is increased LV wall thickness. There is normal LV segmental wall motion. The left ventricular diastolic function is normal. LVEF is 55%. Right Ventricle The right ventricle is normal size. The right ventricular systolic function is normal. Atria Left atrium is mildly dilated. Right atrium is mildly dilated. There is no Doppler evidence of interatrial shunt. Aortic Valve The aortic valve is mildly thickened. There is no aortic valvular stenosis. Trace aortic regurgitation. Mitral Valve The mitral valve is normal in structure. No evidence of mitral valve stenosis. Mild mitral regurgitation. Tricuspid Valve The tricuspid valve leaflets are thin and pliable. Trace tricuspid regurgitation. There is insufficient TR jet to estimate RVSP. Pulmonic Valve The pulmonary valve is normal in structure. Trace pulmonic regurgitation. Great Vessels The aortic root is normal in size. IVC is normal in size and collapses >50% with inspiration. Pericardium There is no pericardial effusion. Other Information Study Quality: Fair Conclusion Normal biventricular systolic function. Mild biatrial dilation. Mild MR. Electronically signed by : Harmony Sandoval MD 10/17/2024 11:52:55
[2024-10-18] VITALS: BP 109/73; PULSE 60; PULSE 70; RESP 16; TEMP 36.8; O2SAT 95
[2024-10-18] MEDS: ONDANSETRON 4MG/2ML VIAL 4 MG IV ×2 (00:23→21:33)
[2024-10-18 04:00] VITALS: BP 121/79; PULSE 60; PULSE 66; RESP 16; TEMP 36.7; O2SAT 98; BMI 28.3
--- NOTE | 2024-10-18 04:26 | PC.NURSE ---
Pt has c/o back pain, pain at pacemaker site, and nausea this shift. Pt was medicated per MAR with adequate relief. No other complaints voiced. No acute changed this shift. Dressing to pacemaker incision site c/d/i. No hematoma noted.
--- NOTE | 2024-10-18 05:57 | PC.NURSE ---
Addendum entered by Aria Nolan RN 10/18/24 06:26: med not pulled at this time Original Note: pt requesting pain medication at this time. after reviewing MAR and re-entering pts room, pt was sleeping.
[2024-10-18 06:23] LABS: Hematocrit 45.0 % (42.0-52.0); Immature Granulocytes % 0.3 %; Mean Corpuscular HGB Conc 32.7 g/dL (31.8-35.4); Mean Corpuscular Hemoglobin 28.1 pg (27.0-31.2); Mean Corpuscular Volume 86.0 fl (80-94); Nucleated Red Blood Cells % 0 %; Platelet Count 194 K/mm3 (142-424); Red Blood Count 5.23 M/mm3 (4.60-6.20); Red Cell Distribution Width-SD 40.1 fL; White Blood Count 11.2 K/mm3 (4.8-10.8)
[2024-10-18 06:30] LABS: Hemoglobin 14.9 g/dL (14.1-18.0)
[2024-10-18 06:36] LABS: Alanine Aminotransferase 14 U/L (12-78); Albumin Level 4.1 g/dl (3.5-5.0); Albumin/Globulin Ratio 1.2 (1.1-1.8); Alkaline Phosphatase 77 U/L (38-126); Anion Gap 17.0 mEq/L (5-15); Aspartate Amino Transferase 29 U/L (17-59); Bilirubin,Total 0.5 mg/dl (0.2-1.3); Blood Urea Nitrogen 10 mg/dl (9-20); Calcium 8.9 mg/dl (8.4-10.2); Carbon Dioxide 26 mmol/L (22.0-30.0); Chloride 99 mmol/L (98-107); Creatinine Clearance Estimated 114 mL/min (50-200); Creatinine,Serum 0.90 mg/dl (0.66-1.25); Estimated Glomerular Filt Rate 88 ml/min (>60); GFR (African American) 106 ML/MIN (>60); Globulin 3.3 g/dL (1.3-3.2); Glucose 96 mg/dl (74-100); Potassium 4.0 mmoL/L (3.5-5.1); Sodium 138 mmol/L (136-145); Total Protein,Serum 7.4 g/dl (6.3-8.2)
--- NOTE | 2024-10-18 07:39 | P.PN_ITS ---
Subjective Subjective Date: 10/18/24 Time: 07:39 Principal diagnosis: Symptomatic bradycardia with first-degree AV block Interval history: 53-year-old white male in bed in no acute distress. Complains of soreness at the pacer site otherwise doing well. We did discuss restrictions for 6 weeks. Telemetry shows AV pacing with V sensing. Exam Data for Last 24 hours Vital signs and Labs for Last 24 Hours: Temp Pulse Resp BP Pulse Ox O2 Del Method 98.0 F 66 16 121/79 98 Room Air 10/18/24 04:00 10/18/24 04:00 10/18/24 04:00 10/18/24 04:00 10/18/24 04:00 10/18/24 06:46 Laboratory Results - last 24 hr 10/18/24 05:28: WBC 11.2 H D, RBC 5.23, Hgb 14.9 D, Hct 45.0, MCV 86.0, MCH 28.1, MCHC 32.7, RDW 12.9, Plt Count 194 D, MPV 11.8 H, Neut % (Auto) 70.5, Lymph % (Auto) 17.5, [place] % (Auto) 8.2, Eos % (Auto) 2.4, Baso % (Auto) 1.1, Neut # (Auto) 7.9 H, Lymph # (Auto) 2.0, [place] # (Auto) 0.9, Eos # (Auto) 0.3, Baso # (Auto) 0.1, Sodium 138, Potassium 4.0, Chloride 99, Carbon Dioxide 26, Anion Gap 17.0 H, BUN 10, Creatinine 0.90, Estimated Creat Clear 114, Estimated GFR 88, Est GFR ( Amer) 106, Glucose 96, Calcium 8.9, Total Bilirubin 0.5, AST 29, ALT 14, Alkaline Phosphatase 77, Total Protein 7.4, Albumin 4.1 D, Globulin 3.3 H, Albumin/Globulin Ratio 1.2 I & O for Last 24 hours: Intake & Output 10/15/24 10/16/24 10/17/24 10/18/24 11:59 11:59 11:59 11:59 Intake Total 511.842 / 819.469 6439.158 / 1618.158 Output Total 1950 / 2150 1750 / 1750 0 / 0 Balance -1438.158 / -1638.158 -131.842 / -131.842 0 / 0 Weight 192 lb 0.362 oz 190 lb 14.725 oz 191 lb 2 oz Constitutional Constitutional: no acute distress *Routine Respiratory Exam Respiratory: Present CTA bilaterally *Routine Cardiovascular Exam Cardiovascular: Present RRR Progress Note: A&P Assessment and plan (1) Bradycardia: Status: Acute Assessment and Plan Assessment and Plan for All Diagnoses:: 1. Symptomatic bradycardia with First-degree AV block -Troponins and thyroid functions normal - Mena dual-chamber pacemaker placed 10/17/2024 2. Tobacco use, usually 2 packs/day -Cessation recommend 3. Family history of early coronary artery disease with father having bypass at 35 -Will plan outpatient ischemic workup 4. Methadone use -UDS positive for marijuana also 5. Elevated hemoglobin A1c at 6.5 -Defer to hospitalist 6. Hyperlipidemia with LDL 130 and HDL 27 -Consider statin therapy as an outpatient 7. History of hepatitis C with elevated LFTs -LFTs normal this admission Stable from a cardiac standpoint for discharge home. Follow-up in our office in 1 week. Plan for outpatient ischemic workup.
[2024-10-18] MEDS: OXYCODONE 5MG W/APAP 325MG TABLET 2 EACH PO ×2 (07:57→21:33)
[2024-10-18 08:00] VITALS: BP 137/75; PULSE 60; PULSE 61; RESP 18; TEMP 36.5; O2SAT 98
[2024-10-18] MEDS: FAMOTIDINE 20MG TABLET 20 MG PO ×2 (09:32→21:33)
[2024-10-18] MEDS: DOXYCYCLINE HYCL 100 MG TABLET PO ×2 (09:32→21:52)
[2024-10-18] MEDS: MUPIROCIN 2% OINTMENT 22GM TUBE TP ×2 (09:33→21:34)
--- NOTE | 2024-10-18 11:07 | P.DS_ITS ---
<Statement entered by Michael Bucio MD - 10/19/24 11:33> Patient did not have a ride home on 10/18/2024. Patient was discharged in stable condition on 10/19/2024. Pacing well, heart rate 66. Will follow-up with cardiology within 1 week. General Admission date:: 10/15/24 Discharge date: 10/18/24 HPI HPI HPI: Patient had noted that he had been slightly dizzy feeling weak lately. Come to the ER found that his heart rate is down in the 40s. Appears to be in a first- degree AV block but P waves are present and appear to be associated with the QRS complex. Patient notes no recent injury or chest pain. 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 History of past drug abuse presently on methadone. Significant past medical history was hepatitis C with elevated liver function test. He states he was treated for this last liver function test on today's labs were normal. Spoke with the ER provider who is spoken with Dr. Pulido. Patient is stable at this point in time but does not do well with ambulation. So we will go ahead and admit him to MedSurg but will keep him in the unit for 1 reason. Patient heart rate staying 40 and above at this time if it was to drop would start him on dobutamine 2.5 mg as a starting dose to keep the heart rate closer to 50. If that was to recur I did not want to have to transfer the patient from the floor to the unit so we will keep him in the unit as a MedSurg patient at this time. Hospital Course Hospital Course Hospital Course: Jericho Feng is a 53-year-old male with medical history of former opioid use disorder on methadone who presents with 3 weeks of exercise intolerance, spotty vision, and presyncopal events. Patient states prior to 3 weeks, he was in good health. Denies chest pain, shortness of breath, fever/chills, abdominal pain. Only takes methadone at this time. On arrival, patient's heart rate was in the 40s with EKG showing first-degree AV block. Vitals otherwise normal. CBC, CMP unremarkable during stay. Dr. Pulido was consulted by the ED, who recommended dopamine drip with goal heart rate of 40. Case discussed with ED provider and decision was made to admit patient for symptomatic bradycardia. #Symptomatic bradycardia #First-degree AV block #Exercise intolerance #Presyncope ? Several week onset of exercise intolerance, spotty vision, presyncopal events. ? EKG revealing heart rate in the 30s to 40s, with first-degree AV block. No known cardiac history. ? TSH normal, UDS positive for methadone and THC. ? ECHO with normal biventricular systolic function without valvular issues. ? Cardiology consulted, s/p permanent pacemaker on 10/17/2024. Monitor patient overnight for any cardiac events, none noted. ? Continuous cardiac telemetry remained unremarkable, paced rhythm. Vital signs remained stable. ? Patient provided with PCP list at discharge. #Rash ? Patient has multiple erythematous lesions of different staging over torso and back. States it began about 3 weeks ago, works outside a lot. ? Started doxycycline milligrams twice daily. Doxycycline 100 mg twice daily and prednisone 40 x 5 days ordered at discharge. #Former opiate use disorder ? Started methadone 95 mg daily. Continue at discharge. #Hyperlipidemia ? Patient's total cholesterol 206, LDL 130. [place] LDL less than 55. Will start Lipitor 20 mg daily at discharge. Follow-up with cardiology in 1 to 2 weeks. #Elevated A1c ?Patient A1c 6.5%. Patient not previously diagnosed with diabetes. Will send in metformin 500 mg twice daily. Patient needs to follow-up with PCP for further diabetic regimen. Total time spent on discharge 34 minutes in counseling, documentation, chart review, and direct care with patient. Exam Data for Last 24 hours Vital signs and Labs for Last 24 Hours: Temp Pulse Resp BP Pulse Ox O2 Del Method 97.7 F 61 18 137/75 98 Room Air 10/18/24 08:00 10/18/24 08:00 10/18/24 08:00 10/18/24 08:00 10/18/24 08:00 10/18/24 08:13 Laboratory Results - last 24 hr 10/18/24 05:28: WBC 11.2 H D, RBC 5.23, Hgb 14.9 D, Hct 45.0, MCV 86.0, MCH 28.1, MCHC 32.7, RDW 12.9, Plt Count 194 D, MPV 11.8 H, Neut % (Auto) 70.5, Lymph % (Auto) 17.5, [place] % (Auto) 8.2, Eos % (Auto) 2.4, Baso % (Auto) 1.1, Neut # (Auto) 7.9 H, Lymph # (Auto) 2.0, [place] # (Auto) 0.9, Eos # (Auto) 0.3, Baso # (Auto) 0.1, Sodium 138, Potassium 4.0, Chloride 99, Carbon Dioxide 26, Anion Gap 17.0 H, BUN 10, Creatinine 0.90, Estimated Creat Clear 114, Estimated GFR 88, Est GFR ( Amer) 106, Glucose 96, Calcium 8.9, Total Bilirubin 0.5, AST 29, ALT 14, Alkaline Phosphatase 77, Total Protein 7.4, Albumin 4.1 D, Globulin 3.3 H, Albumin/Globulin Ratio 1.2 I & O for Last 24 hours: Intake & Output 10/15/24 10/16/24 10/17/24 10/18/24 23:59 23:59 23:59 23:59 Intake Total 1048.000 / 6461.693 2218.000 / 1082.000 240 / 240 Output Total 2950 / 2950 750 / 750 0 / 0 Balance -1902.000 / -1467.000 332.000 / 332.000 240 / 240 Weight 87.1 kg 86.6 kg 86.693 kg Constitutional Constitutional: no acute distress *Routine HEENT Exam Head: Present normocephalic Eye: Present EOMI and PERRL ENT: Present mucous membranes moist *Routine Neck Exam Neck: Present supple; Absent lymphadenopathy *Routine Respiratory Exam Respiratory: Present CTA bilaterally *Routine Cardiovascular Exam Cardiovascular: Present RRR *Routine Abdominal Exam Abdominal: Present soft and normoactive bowel sounds; Absent tenderness *Routine Extremities Exam Extremities: Absent cyanosis, clubbing or edema *Routine Skin Exam Skin: Present warm and rash *Routine Neurological Exam Neurological: Present alert and oriented X3 Results Data Completed and Pending Labs on day of discharge: Labs from last 24 hours 10/18/24 05:28 WBC 11.2 H D RBC 5.23 Hgb 14.9 D Hct 45.0 MCV 86.0 MCH 28.1 MCHC 32.7 RDW 12.9 Plt Count 194 D MPV 11.8 H Neut % (Auto) 70.5 Lymph % (Auto) 17.5 [place] % (Auto) 8.2 Eos % (Auto) 2.4 Baso % (Auto) 1.1 Neut # (Auto) 7.9 H Lymph # (Auto) 2.0 [place] # (Auto) 0.9 Eos # (Auto) 0.3 Baso # (Auto) 0.1 Sodium 138 Potassium 4.0 Chloride 99 Carbon Dioxide 26 Anion Gap 17.0 H BUN 10 Creatinine 0.90 Estimated Creat Clear 114 Estimated GFR 88 Est GFR ( Amer) 106 Glucose 96 Calcium 8.9 Total Bilirubin 0.5 AST 29 ALT 14 Alkaline Phosphatase 77 Total Protein 7.4 Albumin 4.1 D Globulin 3.3 H Albumin/Globulin Ratio 1.2 DS: Diagnosis Discharge Diagnosis (1) Bradycardia: Status: Acute Code(s): R00.1 - Bradycardia, unspecified (2) Methadone maintenance therapy patient: Status: Acute Code(s): F11.20 - Opioid dependence, uncomplicated (3) Rash and nonspecific skin eruption: Status: Acute Code(s): R21 - Rash and other nonspecific skin eruption (4) First degree AV block: Status: Acute Code(s): I44.0 - Atrioventricular block, first degree (5) Symptomatic bradycardia: Status: Acute Code(s): R00.1 - Bradycardia, unspecified (6) Status post biventricular pacemaker: Status: Acute Code(s): Z95.0 - Presence of cardiac pacemaker (7) Elevated hemoglobin A1c: Status: Acute Code(s): R73.09 - Other abnormal glucose Meds Home Medications and Allergies Home Medications ?Medication ?Instructions ?Recorded ?Confirmed ?Type methadone 10 mg/mL oral concentrate 95 mg PO DAILY 10/17/24 History atorvastatin 20 mg tablet (Lipitor) 20 mg PO HS #30 ta bs 10/18/24 Rx doxycycline hyclate 100 mg tablet 100 mg PO BID 5 days #11 tabs 10/18/24 Rx metformin 500 mg tablet 500 mg PO BIDWMEAL #60 tabs 10/18/24 Rx prednisone 20 mg tablet 40 mg (2 x 20 mg) PO DAILY # 10 tabs 10/18/24 Rx New Prescriptions to Start Prescriptions: atorvastatin [Lipitor] Chelo Krishna doxycycline hyclate Chelo Krishna metformin Chelo Krishna prednisone Chelo Krishna Allergies Allergy/AdvReac Type Severity Reaction Status Date / Time No Known Allergies Allergy Verified 10/15/24 23:29 Discharge Plan Disposition Patient Disposition: Home, Self-Care Condition: Fair Discharge Order Discharge Orders: Discharge Order (Routine); Ordered 10/18/24 Ordered By: Chelo Krishna Follow up Plan Follow up with: Juliana Heller APRN [Nurse Practitioner, Cardiology] - 10/31/24 2:45 pm Jj Guerra MD [Staff Physician, Internal Medicine] - 10/26/24 1:00 pm Prescriptions/Medication Reconciliation: New doxycycline hyclate 100 mg Tablet 100 mg PO BID 5 Days Qty: 11 0RF atorvastatin [Lipitor] 20 mg tablet 20 mg PO HS Qty: 30 0RF prednisone 20 mg tablet 40 mg PO DAILY Qty: 10 0RF metformin 500 mg tablet 500 mg PO BIDWMEAL Qty: 60 0RF Continued methadone 10 mg/mL Concentrate 95 mg PO DAILY Problem Reconciliation Problems Reviewed?: Yes Patient Discharge Instructions ACTIVITY: No heavy lifting DIET: continue same diet Patient Instructions: DI for Pacemaker Insertion, DI for Surgical Site Infec tion, DI for Bradycardia, Stop Light Infection Print Language: [place] Providers Primary Care Provider: Provider,Referral Admit Provider: Michael Bucio Attending Provider: Michael Bucio
[2024-10-18 12:00] VITALS: PULSE 80
[2024-10-18 16:15] VITALS: PULSE 60
[2024-10-18 20:00] VITALS: BP 134/81; PULSE 58; PULSE 60; RESP 18; TEMP 36.4; O2SAT 93
[2024-10-19] VITALS: BP 134/75; PULSE 60; PULSE 66; RESP 16; TEMP 36.6; O2SAT 93
[2024-10-19 04:00] VITALS: BP 148/92; PULSE 60; PULSE 66; RESP 16; TEMP 36.5; O2SAT 100; BMI 29.0
--- NOTE | 2024-10-19 06:03 | PC.NURSE ---
no acute changes this shift. Pt c/o pain at pacemaker site and nausea at beginning of shift. pt was medicated per JUN w/ adequate relief.
[2024-10-19 06:43] LABS: Hematocrit 47.9 % (42.0-52.0); Hemoglobin 15.3 g/dL (14.1-18.0); Immature Granulocytes % 0.1 %; Mean Corpuscular HGB Conc 31.9 g/dL (31.8-35.4); Mean Corpuscular Hemoglobin 27.5 pg (27.0-31.2); Mean Corpuscular Volume 86.2 fl (80-94); Nucleated Red Blood Cells % 0 %; Platelet Count 202 K/mm3 (142-424); Red Blood Count 5.56 M/mm3 (4.60-6.20); Red Cell Distribution Width-SD 40.4 fL; White Blood Count 6.8 K/mm3 (4.8-10.8)
[2024-10-19 06:56] LABS: Alanine Aminotransferase 13 U/L (12-78); Albumin Level 4.0 g/dl (3.5-5.0); Albumin/Globulin Ratio 1.2 (1.1-1.8); Alkaline Phosphatase 82 U/L (38-126); Anion Gap 15.5 mEq/L (5-15); Aspartate Amino Transferase 27 U/L (17-59); Bilirubin,Total 0.4 mg/dl (0.2-1.3); Blood Urea Nitrogen 9 mg/dl (9-20); Calcium 9.3 mg/dl (8.4-10.2); Carbon Dioxide 30 mmol/L (22.0-30.0); Chloride 99 mmol/L (98-107); Creatinine Clearance Estimated 117 mL/min (50-200); Creatinine,Serum 0.90 mg/dl (0.66-1.25); Estimated Glomerular Filt Rate 88 ml/min (>60); GFR (African American) 106 ML/MIN (>60); Globulin 3.4 g/dL (1.3-3.2); Glucose 98 mg/dl (74-100); Potassium 4.5 mmoL/L (3.5-5.1); Sodium 140 mmol/L (136-145); Total Protein,Serum 7.4 g/dl (6.3-8.2)
[2024-10-19] MEDS: ONDANSETRON 4MG/2ML VIAL 4 MG IV (07:46)
--- NOTE | 2024-10-19 07:53 | PC.NURSE ---
Patient stated he was ready to leave, his ride was on the way. MD aware, MD said ok to discharge with no new orders. IV's removed and patient left the floor. Med surg park recreation manager walking down with patient.
--- NOTE | 2024-10-20 10:09 | SW/DCPLANNER ---
Spoke with patient on the phone. Patient stated that he thinks he is aware of his upcoming appointments and i told him that he should have the time and date of the appointments and who its with in his discharge papers. Patient stated that he was able to get his new medicine picked up from clinic pharmacy. Patient stated that he has no concerns or questions other than how to hook this heart monitor up. I asked the patient to hold while i transferred him and he stated that his phone was about to due to the battery and i asked him to call the [phone] and ask to be connected to Cardiology. Patient stated that he has no other concerns. Maddie WELLS Cardroom Attendant
== END 2024-10-19 07:55 | disposition home or self-care (01) | DRG 243 ==
LOC: ER 20:36 → ICU 22:02 → 2ND 10-17 18:19
PROVIDERS: Internal Medicine; Nurse Practitioner Family; Admitting Provider Student in an Organized Health Care Education/Training Program; Emergency Provider Student in an Organized Health Care Education/Training Program; Visit Provider Student in an Organized Health Care Education/Training Program
PROC: (CPT 33208; principal; 2024-10-17 12:00)
DX: I44.0 Atrioventricular block, first degree (principal); F11.20 Opioid dependence, uncomplicated; F17.210 Nicotine dependence, cigarettes, uncomplicated; Z86.19 Personal history of other infectious and parasitic diseases; R21 Rash and other nonspecific skin eruption; E78.5 Hyperlipidemia, unspecified; E11.9 Type 2 diabetes mellitus without complications; Z82.49 Family history of ischemic heart disease and other diseases of the circulatory system
CPT/HCPCS: 36415; 71045; 80053; 80061; 80074; 80307; 83036; 83735; 83880; 84100; 84436; 84439; 84443; 84479; 84484; 85025; 85610; 85651; 87389; 87522; 93005; 93306; C1785; C1898; J1200; J1265; J1650; J2004; J2250; J2405; J2550; J2704; J3010

== ENCOUNTER 2024-10-25 13:57 | Emergency (ER) | payer MEDICAID, SELFPAY ==
[2024-10-25] VITALS (11 sets, daily range): BP systolic 116–162; BP diastolic 81–103; PULSE 60; RESP 7–18; TEMP 36.6–37.1; O2SAT 94–100; BMI 31.0
--- NOTE | 2024-10-25 13:58 | ECG_ITS ---
APPROVED REPORT Exam: Resting ECG HR:60 bpm ECG Measurements Heart Rate 60 AXES WV 262 P 144 QRSd 89 QRS 16 QT 420 T -16 QTc 420 Conclusion ELECTRONIC ATRIAL PACEMAKER POSSIBLE RIGHT VENTRICULAR CONDUCTION DELAY [RSR (QR) IN V1/V2] NONSPECIFIC T-WAVE ABNORMALITY ABNORMAL RHYTHM ECG UNCONFIRMED REPORT Atrial pacemaker. No ST elevation or depression. T wave inversions in lead III and aVF. Electronically signed by : LETICIA BAXTER, 10/25/2024 17:03:48
--- NOTE | 2024-10-25 14:04 | PC.NURSE ---
fsbs 95
--- OUTSIDE RECORDS SUMMARY | 2024-10-25 14:04 | XMS_ITS | Clinical Summary ---
Author Organization Healthcare Address [address] [place] [address] Care Team Providers Care Agricultural Engineering Technician Name Role Phone Pcp, No Primary Care Provider Unavailabl e Allergies No known active allergies Medications ibuprofen 400 MG tablet Take 2 tablets by mouth in the morning and 2 tablets in the evening and 2 tablets before bedtime. 60 tablet 07/15/2024 Active Immunizations Immunization Administration Dates Next Due Influenza, [...] [facility]-HIV Screening 1968 [facility]-Hepatitis C Screening 1968 [facility]-/Child/Adol SDOH Screenings 1968 [facility]-Obesity Intervention 1974 [facility]- SDOH Screenings 1986 [facility]-Adult SDOH Screenings 1986 [facility]-Hepatitis B Vaccines (1 of 3 - 19+ 3-dose series) 11/29/1987 CT Colonography 2013 Colonoscopy 2013 FIT-DNA 2013 FIT 2013 FOBT 2013 Sigmoidoscopy 2013 [facility]-Colorectal Cancer Screening 2013 [facility]-Pneumococcal Vaccine: 50+ Years (2 of 2 - PCV) 2018 06/24/2016 [facility]-Zoster Vaccines (1 of 2) 2018 KIL-OIATF-53 Vaccine (4 - season) 2023 03/13/2021, 07/19/2020, [...] patient's age to complete this topic [facility] [address] [address] [facility] Care Teams Agricultural Engineering Technician Relationship Specialty Start Date End Date Pcp, Maryam [address] [phone] PCP - General Family Medicine 07/15/24
--- OUTSIDE RECORDS SUMMARY | 2024-10-25 14:04 | XMS_ITS | Clinical Summary ---
Author Organization [facility] Address [address], [address] [place] [address] Care Team Providers Care Human Resources Support Specialist Name Role Phone Unavailable Primary Care Provider [...] Treatment Not on file Insurance GENERIC COMMERCIAL MEDICAID ID MEDICAID ID
--- OUTSIDE RECORDS SUMMARY | 2024-10-25 14:04 | XMS_ITS | Continuity of Care Document ---
Author Organization [facility], [facility] Address [address] [place] [address] [place] [address] Care Team Providers Care Operational Communication Chief Name Role Phone MICHELLE MCCORMICK Primary Care Provider Assessment No assessment recorded. Plan of Treatment Reminders Order Date Submit Date Provider Last Modified By Organization Details Last Modified Time Details Appointments None record ed. Lab None record ed. Referral None record ed. Procedures None record ed. Surgeries None record ed. Imaging XR, finger (s) 025 09/22/19 25 [id number] [facility], [address] [place] [address] [place], [address], 5 11:15:06 Medication Orders None record ed. Patient TargetsNo targets recorded. Patient InstructionsNo instructions recorded. Reason for Referral None Reported. Results Created Date Observation Date Name Description Value Unit Range Abnormal Flag Note LastModifiedBy Organization Detail LastModifiedTime 09/22/19 25 XR, finge r(s) No observ ation record ed. [facility] [address] [place], [address], 09/21/2024 09:05:34 Result Notes None recorded. Problems Name Problem SNOMED Code Status Onset Date Resolution Date Notes Provider Name and Address Organization Details Recorded Time Neuropathy [id number] Active Georgia hernandez [facility] & [place] 2 08:02:50 History of drug abuse 826805263 Active Georgia hernandez, [facility] & [place] 12:50:34 Problem Notes None recorded. Procedures Surgical History Date Name Laterality Status Provider Name and Address Organization Details Recorded Time Unlisted procedure stomach completed Bernadette Adams [facility] & [place] 01/13/2022 10:17:46 leg repair completed Bernadette Bryan [facility] & [place] 01/13/2022 10:18:11 Imaging Results None recorded. Procedure Notes None recorded. Medical Equipment None Reported. Allergies No known drug allergies Medications Name Sig Start Date Stop Date Status Note LastModified by Organization Details LastModified Time gabapentin 600 mg tablet TAKE 1 TABLET BY MOUTH THREE TIMES DAILY active Not Available Not Available No t Available trazodone 50 mg tablet 01/13 completed Not Available Not Available Not Available Viagra 50 mg tablet Take 1 tablet every day by oral route. 2021 active Not Available Not Available Not Avai lable sulfamethoxa zole 800 mg-trimethop rim 160 mg tablet TAKE 1 TABLET EVERY 12 HOURS FOR 10 DAYS active Not Available Not Available No t Available amitriptylin e 50 mg tablet 01/13 completed Not Available Not Available Not Available trazodone 100 mg tablet 01/13 completed Not Available Not Available Not Available nicotine 21 mg/24 hr daily transdermal patch 01/13 completed Not Available Not Available Not Available omeprazole 20 mg capsule,stephenie yed release 01/13 completed Not Available Not Available Not Available mupirocin 2 % topical ointment 01/13 completed Not Available Not Available Not Available loratadine 10 mg tablet 01/13 completed Not Available Not Available Not Available hydroxyzine pamoate 25 mg capsule 01/13 completed Not Available Not Available Not Available buprenorphin e 8 mg-naloxone 2 mg sublingual tablet active Not Available Not Available Not Available nicotine (polacrilex) 4 mg buccal lozenge 01/13 completed Not Available Not Available Not Available cyclobenzapr ine 5 mg tablet TAKE 1 TABLET BY MOUTH ONCE DAILY AT BEDTIME NEEDED 01/13 completed Not Available Not Available Not Available Tab-A-Lilly 400 mcg tablet 01/13 completed Not Available Not Available Not Available Vitals None Recorded Social History Question Answer Notes LastModified by Organizat ion Details LastModified Time Tobacco Smoking Status Current Every Day Smoker Bernadette Adams mary, [facility] & [place] 01/13/2022 10:17:25 What Is Your Level Of Caffeine Consumption? Occasional Information not available 01/13/2022 Which Illicit Or Recreational Drugs Have You Used? History Of Abuse Information not available 01/13/2022 How Much Tobacco Do You Smoke? 1 PPD [email or web address] Information not available 01/13/2022 Has Tobacco Cessation Counseling Been Provided? Yes Information not available 01/13/2022 On What Date Was Tobacco Cessation Counseling Provided? 01/13/2022 Information not available 01/13/2022 Sex: Unknown Functional Status Question Answer Note LastModified by Organizat ion Details LastModified Time Do you use any illicit or recreational drugs? Yes Information not available 01/13/2022 Do you or have you ever used any other forms of tobacco or nicotine? No Information not available 01/13/2022 What is your level of alcohol consumption? Occasional Information not available 01/13/2022 Mental Status None recorded. Family History Relationship Description Onset Age of this Age Resolved Age Notes LastModified by Organization Details LastModified Time Father No current problems or disability [email or web address] Not available 01/13 10:17:14 Mother No current problems or disability [email or web address] Not available 01/13 10:17:14 Medical History No medical history recorded. Immunizations Vaccine Type Date Status Note Provider Nam e and Address Organization Details Recorded Time COVID-19, mRNA, LNP-S, PF, 100 mcg/0.5mL dose or 50 mcg/0.25mL dose 1 completed [facility] Astudillo [facility] & [place] 09/21/2024 08:56:06 COVID-19, mRNA, LNP-S, PF, 100 mcg/0.5mL dose or 50 mcg/0.25mL dose 1 completed [facility] Astudillo [facility] & [place] 09/21/2024 08:56:06 COVID-19, mRNA, LNP-S, PF, 100 mcg/0.5mL dose or 50 mcg/0.25mL dose 1 completed Sharmin Rafia null, [place] - [facility] - [place] & [place] 09/21/2024 08:56:06 pneumococcal polysaccharide PPV23 7 completed Sharmin Rafia null, [place] - [facility] & [place] 09/21/2024 08:56:06 Tdap 5 completed Sharmin Rafia null, [place] [facility] & [place] 09/21/2024 08:56:06 Tdap 9 completed Sharmin Rafia null, [place] [facility] & [place] 09/21/2024 08:56:06 Tdap 5 completed Sharmin Rafia null, [place] [facility] & [place] 09/21/2024 08:56:06 Tdap 1 completed Sharmin Rafia null, [place] [facility] & [place] 09/21/2024 08:56:06 Influenza, split virus, trivalent, PF 7 completed Sharmin Rafia null, [place] [facility] & [place] 09/21/2024 08:56:06 Hep A, adult 9 completed Sharmin Rafia null, [place] [facility] & [place] 09/21/2024 08:56:06 Hep A, adult 8 completed Sharmin Rafia null, [place] [facility] & [place] 09/21/2024 08:56:06 Influenza, split virus, quadrivalent, PF 7 completed Sharmin Rafia null, [place] [facility] & [place] 09/21/2024 08:56:06 Past Encounters Encounter ID Performer Location Encounter Start Date Encounter Closed Date Diagnosis/Indication Diagnosis SNOMED-CT Code Diagnosis ICD10 Code Diagnosis Note [id number] DO SINDHU WEBSTER [address] [address] 09/21/2024 08:46:39 09/21/2024 09:18:58 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 We did get Xrays today. He does have a small open area on the finger that he reports is from a sledge hammer. No s/s of infection. We did get Xrays- [id number] MARC LLOYD DO [address] [place] [address],[address], [place], [address], [place] - [facility] [place] & [place] 09/21/2024 12:08:17
--- OUTSIDE RECORDS SUMMARY | 2024-10-25 14:04 | XMS_ITS | Clinical Summary ---
Author Organization [facility] Address [facility] [place] [address] Care Team Providers Care Audograph Operator Name Role Phone Pcp, No Primary Care [...] release of HIV test results or diagnoses. [id number] Allergies No known active allergies Medications [...] Immunization: Influenza (MyChart) (#1) 2024 Care Teams Audograph Operator Relationship Specialty Start Date End Date Pcp, No No Address PCP - General 06/08/23
--- OUTSIDE RECORDS SUMMARY | 2024-10-25 14:05 | XMS_ITS | Data Portability ---
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 Lab urinalysis , dipstick 2021 [facility] (Laboratory), [address] [place], [address], 08:21:19 culture, urine [facility] [address] [place], [address], 06:50:44 testostero ne, total, serum 2021 [facility] (Laboratory), [address] [place], [address], 08:21:20 urinalysis , complete 2021 [facility] (Laboratory), [address] [place], [address], 08:21:20 hepatitis panel (A+B+C), acute, serum 2021 [facility] (Laboratory), [address] [place], [address], 08:21:20 CMP, serum or plasma [facility]), [address] [place], [address], 14:18:05 lipid panel, serum [facility] ([facility]), [address] [place], [address], 14:18:06 TSH, serum or plasma [facility] ([facility]), [address] [place], [address], 14:18:08 HbA1c (hemoglobi n A1c), blood [facility]), [address] [place], [address], 13:50:02 PSA, total + free, serum or plasma 2021 [facility] (Laboratory), [address] [place], [address], 08:21:19 Referral None recorded. Procedures None recorded. Surgeries None recorded. Imaging XR, finger(s) 2024 025 yeny Hwang [facility], [address] [place] [address] [place], [address], 5 11:15:06 XR, finger(s) 2024 025 yeny Hwang [facility], [address] [place] [address] [address] [place], [place], [address], 12:23:58 Medication Orders Viagra 50 mg tablet 2021 022 [facility], [address] [facility], [place], [address], 15:01:42 Patient TargetsNo targets recorded. Patient InstructionsNo instructions recorded. Reason for Referral None Reported. Results Created Date Observation Date Name Description Value Unit Range Abnormal Flag Note LastModifiedBy Organization Detail LastModifiedTime 01/14/2001/13/2022 UA WO MICRO AUTO color yellow yellow Not Available [facility] (Lab Registration) [address] [place], [address], 01/13/2022 13:48:53 01/14/2001/13/2022 UA WO MICRO AUTO appearance clear clear Not Available [facility] (Lab Registration) [address] [place], [address], 01/13/2022 13:48:53 01/14/2001/13/2022 UA WO MICRO AUTO glucose NORM normal Not Available [facility] (Lab Registration) [address] [place], [address], 01/13/2022 13:48:53 01/14/20 22 01/13/2022 UA WO MICRO AUTO bilirubin NEGATI VE negati ve Not Available [facility] (Lab Registration) [address] [place], [address], 01/13/2022 13:48:53 01/14/20 22 01/13/2022 UA WO MICRO AUTO ketone NEGATI VE mg/dL negati ve Not Available [facility] (Lab Registration) [address] [place], [address], 01/13/2022 13:48:53 01/14/20 22 01/13/2022 UA WO MICRO AUTO specific gravity 1.010 1.005- 1.035 Not Available [facility] (Lab Registration) [address] [place], [address], 01/13/2022 13:48:53 01/14/2001/13/2022 UA WO MICRO AUTO blood NEGATI VE /mcL negati ve Not Available [facility] (Lab Registration) [address], [place], [address], 01/13/2022 13:48:53 01/14/2001/13/2022 UA WO MICRO AUTO pH 7.00 5.0-7. 5 Not Available [facility] (Lab Registration) [address] [place], [address], 01/13/2022 13:48:53 01/14/2001/13/2022 UA WO MICRO AUTO protein NEGATI VE mg/dL negati ve Not Available [facility] (Lab Registration) [address] [place], [address], 01/13/2022 13:48:53 01/14/2001/13/2022 UA WO MICRO AUTO urobilnogen NORM mg/dL normal Not Available [facility] (Lab Registration) [address] [place], [address], 01/13/2022 13:48:53 01/14/20 22 01/13/2022 UA WO MICRO AUTO nitrite NEGATI VE negati ve Not Available [facility] (Lab Registration) [address] [place], [address], 01/13/2022 13:48:53 01/14/20 22 01/13/2022 UA WO MICRO AUTO leukocyte esterase NEGATI VE /mcL negati ve Not Available [facility] (Lab Registration) [address] [place], [address], 01/13/2022 13:48:53 01/14/20 22 01/13/2022 UA WO MICRO AUTO dip comment N/A Not Available [facility] (Lab Registration) [address] [place], [address], 01/13/2022 13:48:53 01/14/20 22 01/13/2022 UA WO MICRO AUTO note Unles s other cordova noted testi ng perfo rmed at: [facility] [address] [place] [address] [phone] Bridger box MD CLIA: [id number] Not Available [facility] (Lab Registration) [address], [place], [address], 01/13/2022 13:48:53 01/14/2001/13/2022 HEMOG LOBIN A1C glycosylated hemoglobin A1C 5.5 % 4.5-6. 2 Not Available [facility] (Lab Registration) [address], [place], [address], 01/13/2022 13:50:02 01/14/20 22 01/13/2022 HEMOG LOBIN A1C estimated average glucose 111 mg/dL 82-131 Not Available [facility] (Lab Registration) [address], [place], [address], 01/13/2022 13:50:02 01/14/20 22 01/13/2022 HEMOG LOBIN A1C note Unles s other cordova noted testi ng perfo rmed at: [facility] [address] [place] [address] [phone] Bridger box MD CLIA: [id number] Not Available [facility] (Lab Registration) [address] [place], [address], 01/13/2022 13:50:02 01/14/20 22 01/13/2022 COMP METAB OLIC PANEL sodium 140 mmol/ L 136-14 5 Not Available [facility] (Lab Registration) [address] [place], [address], 01/13/2022 14:18:05 01/14/20 22 01/13/2022 COMP METAB OLIC PANEL potassium 4.2 mmol/ L 3.5-5. 1 Not Available [facility] (Lab Registration) [address], [place], [address], 01/13/2022 14:18:05 01/14/20 22 01/13/2022 COMP METAB OLIC PANEL chloride 102 mmol/ L 98-107 Not Available [facility] (Lab Registration) [address] [place], [address], 01/13/2022 14:18:05 01/14/20 22 01/13/2022 COMP METAB OLIC PANEL carbon dioxide 30 mmol/ L 21-32 Not Available [facility] (Lab Registration) [address] [place], [address], 01/13/2022 14:18:05 01/14/20 22 01/13/2022 COMP METAB OLIC PANEL anion gap 8.0 Not Available [facility] (Lab Registration) [address] [place], [address], 01/13/2022 14:18:05 01/14/20 22 01/13/2022 COMP METAB OLIC PANEL glucose 109 mg/dL 70-110 Not Available [facility] (Lab Registration) [address] [place], [address], 01/13/2022 14:18:05 01/14/20 22 01/13/2022 COMP METAB OLIC PANEL blood urea nitrogen 12 mg/dL 7-18 Not Available [facility] (Lab Registration) [address] [place], [address], 01/13/2022 14:18:05 01/14/20 22 01/13/2022 COMP METAB OLIC PANEL creatinine 0.8 mg/dL 0.8-1. 3 Not Available [facility] (Lab Registration) [address] [place], [address], 01/13/2022 14:18:05 01/14/20 22 01/13/2022 COMP METAB OLIC PANEL BUN/creatini ne ratio 15.0 ratio 9-21 Not Available [facility] (Lab Registration) [address] [place], [place], [address], 01/13/2022 14:18:05 01/14/20 22 01/13/2022 COMP METAB OLIC PANEL estimated glom filtration rate 107 mL/mi n >60- Not Available [facility] (Lab Registration) [address], [place], [address], 01/13/2022 14:18:05 01/14/20 22 01/13/2022 COMP METAB OLIC PANEL total protein 8.3 g/dL 6.4-8. 2 high Not Available [facility] (Lab Registration) [address], [place], [address], 01/13/2022 14:18:05 01/14/20 22 01/13/2022 COMP METAB OLIC PANEL albumin 3.8 g/dL 3.4-5. 0 Not Available [facility] (Lab Registration) [address], [place], [address], 01/13/2022 14:18:05 01/14/20 22 01/13/2022 COMP METAB OLIC PANEL calcium 9.1 mg/dL 8.5-10 .1 Not Available [facility] (Lab Registration) [address] [place], [address], 01/13/2022 14:18:05 01/14/20 22 01/13/2022 COMP METAB OLIC PANEL corrected calcium 9.3 mg/dL 8.5-10 .1 Not Available [facility] (Lab Registration) [address] [place], [address], 01/13/2022 14:18:05 01/14/20 22 01/13/2022 COMP METAB OLIC PANEL bilirubin total 0.4 mg/dL 0.4-1. 5 Not Available [facility] (Lab Registration) [address] [place], [address], 01/13/2022 14:18:05 01/14/20 22 01/13/2022 COMP METAB OLIC PANEL AST (SGOT) 118 U/L 15-37 high Not Available [facility] (Lab Registration) [address], [place], [address], 01/13/2022 14:18:05 01/14/20 22 01/13/2022 COMP METAB OLIC PANEL ALT (SGPT) 182 U/L 12-78 high Not Available [facility] (Lab Registration) [address], [place], [address], 01/13/2022 14:18:05 01/14/20 22 01/13/2022 COMP METAB OLIC PANEL alk phosphatase 83 U/L 50-170 Not Available [facility] (Lab Registration) [address], [place], [address], 01/13/2022 14:18:05 01/14/20 22 01/13/2022 COMP METAB OLIC PANEL note Unles s other cordova noted testi ng perfo rmed at: [facility] [address] [place] [address] [phone] Bridger box MD CLIA: [id number] Not Available [facility] (Lab Registration) [address], [place], [address], 01/13/2022 14:18:05 01/14/20 22 01/13/2022 LIPID PANEL triglyceride 88 mg/dL 20-200 The Natio nal Karina [employer] l [employer]ca t[employer]gr am ([employer] ) has set the follo wing guide lines for Fasti ng Trigl yceri amarjit: BASIA L: <150 mg/dL BORDE RLINE HIGH: 150 - 199 mg/dL HIGH: 200 - 499 mg/dL VERY HIGH: > or =500 mg/dL Not Available [facility] (Lab Registration) [address] [place], [address], 01/13/2022 14:18:06 01/14/20 22 01/13/2022 LIPID PANEL cholesterol 221 mg/dL 0-200 high The Natio nal [employer]ca t[employer]gr am ([facility] ) has set the follo wing guide lines for Fasti ng Karina stero l: DEBBIE ABLE: <200 mg/dL BORDE RLINE HIGH: 200 - 239 mg/dL HIGH: > or =240 mg/dL Not Available [facility] (Lab Registration) [address], [place], [address], 01/13/2022 14:18:06 01/14/20 22 01/13/2022 LIPID PANEL HDL cholesterol 63 mg/dL 60- The Natio nal Karina [employer] l [employer]ca t[employer] Progr am ([employer] ) has set the follo wing guide lines for Fasti ng HDL Karina stero l: LOW HDL: <40 mg/dL BASIA L: 40 - 60 mg/dL DEBBIE ABLE: >60 mg/dL Not Available [facility] (Lab Registration) [address], [place], [address], 01/13/2022 14:18:06 01/14/20 22 01/13/2022 LIPID PANEL LDL calculated 140 mg/dL 100- The Natio nal Karina [employer] l [employer]ca t[employer] Progr am ([facility] ) has set the follo wing guide lines for Fasti ng LDL Karina stero l: OPTIM AL: < 100 mg/dL LOW RISK: 100 - 129 mg/dL BORDE RLINE HIGH: 130 - 159 mg/dL HIGH: 160 - 189 mg/dL VERY HIGH: > or = 190 mg/dL Not Available [facility] (Lab Registration) [address], [place], [address], 01/13/2022 14:18:06 01/14/20 22 01/13/2022 LIPID PANEL chol/HDL ratio 4 ratio -5 Not Available [facility] (Lab Registration) [address], [place], [address], 01/13/2022 14:18:06 01/14/20 22 01/13/2022 LIPID PANEL note Unles s other cordova noted testi ng perfo rmed at: [facility] [address] [place] [address] [phone] Bridger box MD CLIA: [id number] Not Available [facility] (Lab Registration) [address], [place], [address], 01/13/2022 14:18:06 01/14/20 22 01/13/2022 THYRO ID STIMU LATIN G HORMO NE thyroid stimulating hormone 0.53 mIU/m L 0.34-4 .80 Not Available [facility] (Lab Registration) [address], [place], [address], 01/13/2022 14:18:07 01/14/20 22 01/13/2022 THYRO ID STIMU LATIN G HORMO NE note Venues s other cordova noted testi ng perfo rmed at: [facility] [address] [place] [phone] Bridger box MD CLIA: [id number] Not Available [facility] (Lab Registration) [address], [place], [address], 01/13/2022 14:18:07 01/14/20 22 01/13/2022 CULTU RE URINE results LT 01-14 649 No Growt h at Day 1 LT 01-15 808 No Growt h at Day 2 Not Available [facility] (Lab Registration) [address], [place], [address], 01/15/2022 08:10:20 01/14/20 22 01/13/2022 CULTU RE URINE note Unles s other cordova noted testi ng perfo rmed at: [facility] [address] [place] [address] [phone] Bridger box MD CLIA: [id number] Not Available [facility] (Lab Registration) [address] [place], [address], 01/15/2022 08:10:20 01/14/20 22 01/13/2022 PSA TOTAL + %FREE note Unles s other cordova noted testi ng perfo rmed at: [facility] [address] [place] [address] [phone] Bridger box MD CLIA: [id number] Not Available [facility] (Lab Registration) [address], [place], [address], 01/14/2022 14:16:24 01/14/20 22 01/14/2022 PSA TOTAL + %FREE prostate specific Ag, serum TNP NG/mL Test not perfo rmed. No serum recei nicolasa. Conta ct: Nai Oswald 01/14 Maranda ECLIA metho dolog y. . Accor ding to the Ameri can Urolo gical Ass[employer] iatio n, Serum PSA shoul d decre ase and remai n at undet ectab le level s after radic al prost atect eusebio. The AUA defin es bioch emica l recur rence as an initi al PSA value 0.2 ng/mL or great er follo wed by a subse quent confi rmato ry PSA value 0.2 ng/mL or great er. Value s obtai alexandra with diffe rent assay metho ds or kits canno t be used inter aponte eably . Resul ts canno t be inter prete d as absol wilton evide nce of the prese nce or absen ce of adrián larson se. SENT TO REFER ENCE LAB Not Available [facility] (Lab Registration) [address], [place], [address], 01/14/2022 14:16:24 01/14/2001/14/2022 PSA TOTAL + %FREE PSA, free TNP Test not perfo rmed SENT TO REFER ENCE LAB Not Available [facility] (Lab Registration) [address] [place], [address], 01/14/2022 14:16:24 01/14/2001/14/2022 PSA TOTAL + %FREE % free PSA TNP Test not perfo rmed Perfo rmed at: - [facility] [address] [facility], [place] [id number] Lab Direc tor: Lucien trevizo PhD, Phone : [phone] SENT TO REFER ENCE LAB Not Available [facility] (Lab Registration) [address], [place], [address], 01/14/2022 14:16:24 01/15/20 22 01/14/2022 PSA TOTAL + %FREE note Unles s other cordova noted testi ng perfo rmed at: [facility] [address] [place] [address] [phone] Bridger box MD CLIA: [id number] Not Available [facility] (Lab Registration) [address], [place], [address], 01/15/2022 08:17:53 01/15/20 22 01/15/2022 PSA TOTAL + %FREE prostate specific Ag, serum 0.3 NG/mL 0.0-4. 0 Maranda ECLIA metho dolog y. . Accor ding to the Ameri can Urolo gical Assoc iatio n, Serum PSA shoul d decre ase and remai n at undet ectab le level s after radic al prost atect eusebio. The AUA defin es bioch emica l recur rence as an initi al PSA value 0.2 ng/mL or great er follo wed by a subse quent confi rmato ry PSA value 0.2 ng/mL or great er. Value s obtai alexandra with diffe rent assay metho ds or kits canno t be used inter fay justin . Resul ts canno t be inter prete d as absol wilton evide nce of the prese nce or absen ce of adrián larson se. SENT TO REFER ENCE LAB Not Available [facility] (Lab Registration) [address], [place], [address], 01/15/2022 08:17:53 01/15/20 22 01/15/2022 PSA TOTAL + %FREE PSA, free 0.11 NG/mL n/a Maranda ECLIA metho dolog y. SENT TO REFER ENCE LAB Not Available [facility] (Lab Registration) [address] [place], [address], 01/15/2022 08:17:53 01/15/20 22 01/15/2022 PSA TOTAL + %FREE % free PSA 36.7 % The table below lists the proba bilit y of prost ate cance r for men with non-s uspic ious WILI resul ts and total PSA betwe en 4 and 10 ng/mL , by elvira nt age (Maira peterson et al, DARLEEN 1998, 279:1 542). % Free PSA 50-64 yr 65-75 yr 0.00- 10.00 % 56% 55% 10.01 -15.0 0% 24% 35% 15.01 -20.0 0% 17% 23% 20.01 -25.0 0% 10% 20% >25.0 0% 5% 9% Pleas e note: Bebe paulino et al did not make speci fic recom menda tions regar ding the use of perce nt free PSA for any other popul ation of men. Perfo rmed at: [facility] [address] [place] [phone] Lab Direc tor: Lucien trevizo PhD, Phone : [phone] SENT TO REFER ENCE LAB Not Available [facility] (Lab Registration) [address], [place], [address], 01/15/2022 08:17:53 11/29/19 23 11/25/2022 imagi ng inter preta tion No observ ation record ed. [email or web address] [place] [address], [place], [address], 12/01/2022 08:15:54 11/29/19 23 11/25/2022 imagi ng inter preta tion No observ ation record ed. [email or web address] [facility] [address], [place], [address], 12/01/2022 08:15:36 07/21/19 25 XR, finge r(s) No observ ation record ed. EMMY [address] [place] [place], [address], 07/20/2024 10:44:42 09/22/19 25 XR, finge r(s) No observ ation record ed. EMMY Hwang [address] [place], [address], 09/21/2024 09:05:34 Result Notes None recorded. Problems Name Problem SNOMED Code Status Onset Date Resolution Date Notes Provider Name and Address Organization Details Recorded Time Neuropathy 038946625 Active 022 Georgia hernandez, [place] - [facility] & [place] 08:02:50 History of drug abuse 098145138 Active 022 Georgia Salas null, [place] - [facility] - [place] & [place] 12:50:34 Problem Notes None recorded. Procedures Surgical History Date Name Laterality Status Provider Name and Address Organization Details Recorded Time Unlisted procedure stomach completed Bernadette Bryan [place] - [facility] - [place] & [place] 01/13/2022 10:17:46 leg repair completed Bernadette Bryan [place] - [facility] & [place] 01/13/2022 10:18:11 Imaging Results None recorded. Procedure [...] Not Available Not Available Not Available Vitals Date Recorded Body height Body mass index (BMI) Body weight Body temperature Oxygen saturation Oxygen saturation in Arterial blood by Pulse oximetry Heart rate Respiratory rate Systolic And Diastolic Provider Name and Address Organization Details Last Updated DateTime 2 175.26 cm 28.8 kg/m2 52227.7 9 g 97.8 [degF] 97 % 97 % 69 /min 18 /min 122/83 mm[Hg] Georgia Josue [facility] & [place] 2 12:49:24 Social History Question Answer Notes LastModified by Organizat ion Details LastModified Time Tobacco Smoking Status Current Every Day Smoker Bernadette hernandez, [facility] & [place] 01/13/2022 10:17:25 What Is Your Level Of [...] or 50 mcg/0.25mL dose 1 completed Sharmin Morataya null, [place] [facility] [place] & [place] 09/21/2024 08:56:06 COVID-19, mRNA, LNP-S, PF, 100 mcg/0.5mL dose or 50 mcg/0.25mL dose 1 completed Sharmin [place], [place] [facility] [place] 09/21/2024 08:56:06 COVID-19, mRNA, LNP-S, PF, 100 mcg/0.5mL dose or 50 mcg/0.25mL dose 1 completed Sharmin [place] null, [place] [facility] [place] & [place] 09/21/2024 08:56:06 pneumococcal polysaccharide PPV23 7 completed Sharmin [place] [facility] [place] 09/21/2024 08:56:06 Tdap 5 completed Sharmin Mor[place]aya null, [place] [facility] [place] 09/21/2024 08:56:06 Tdap 9 completed Sharmin Rafia null, [place] - [facility] - [facility] & [place] 09/21/2024 08:56:06 Tdap 5 completed Sharmin Rafia null, [place] [facility] - [facility] & [place] 09/21/2024 08:56:06 Tdap 1 completed Sharmin Rafia null[place] [facility] - [facility] & [place] 09/21/2024 08:56:06 Influenza, split virus, trivalent, PF 7 completed Sharmin Raf[place] null, [place] [facility] - [facility] & [place] 09/21/2024 08:56:06 Hep A, adult 9 completed Sharmin Rafia null, [place] [facility] - [facility] & [place] 09/21/2024 08:56:06 Hep A, adult 8 completed Sharmin Rafia null, [place] - [facility] - [facility] & [place] 09/21/2024 08:56:06 Influenza, split virus, quadrivalent, PF 7 completed Sharmin Rafia null, [place] - [facility] - [facility] & [place] 09/21/2024 08:56:06 Past Encounters Encounter ID Performer Location Encounter Start Date Encounter Closed Date Diagnosis/Indication Diagnosis SNOMED-CT Code Diagnosis ICD10 Code Diagnosis Note [id number] Sylvain Juarez MD [id number] [address] [address] 01/13/2022 12:36:50 01/13/2022 14:15:00 Dysuria 63497538 R30.0 Adult heal th examination 892538156 Z00.00 Liver func tion tests outside reference range 662053746 R94.5 we will chedule gi consul and hepatitis panel Erectile dysfunction 860 285273 F52.21 [id number] DO SINDHU WEBSTER [facility] [address] [place] [address] 07/20/2024 10:11:13 07/20/2024 10:48:12 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.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 RIGHT [id number] MARC LLOYD DO [facility] [address] [place] [address] 09/21/2024 08:46:39 09/21/2024 09:18:58 Traumatic amputation of index finger 1789908556 S68.118A RIGHT Follow-up orthopedic assessment 857591636 Z47.89 Health Concerns Section Related Observation LastModified by Organization Detai ls LastModified Time None Recorded Concern Status LastModified by Organization Details LastModified Time None Recorded Advance Directives Directive None Recorded Payers Insurance Date Sequence Insurance Name Policy Number Policy Mariee Covered Member ID Mariee Member ID Guarantor Name 09/29/2024 1 [employer] [place] (MEDICAID REPLACEMENT - HMO) Jericho Feng [id number] Jericho Feng 09/15/2024 [facility] Rafalhiginio Rodriguezson [id number] Rafalhiginio Rodriguezson 09/15/2024 1 [place] [id number] Rafalhiginio Rodriguezson [id number] Jericho Feng Notes Date Note Type Note Provider Name and Address Organization Details Recorded Time 07/20/2024 text[facility]html [facility]. DOI: 07.15.24. 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 Pt went to [facility] ER on 07.15.24 and had right hand x-rays: Traumatic amputation involving the distal aspect of the second digit.Pt was then sent to from [facility] where they stitched his finger the same day (07.15.24)Pt states the dressings on his finger have been changed around 3-4 times.We will get new x-rays today.[id number] MARC LLOYD DO [address] [facility],[address], [place], [address], [place] [facility] - [place] & [place] 07/20/2024 12:41:43 09/21/2024 text/html Pt is here f/u o f his DOI: 07.15.24 rt index finger. We did get Xrays today. He does have a small open area on the finger that he reports is from a sledge hammer. No s/s of infection. We did get Xrays- [id number] MARC LLOYD DO [address] [facility],[address], [place], [address], [place] [facility] - [place] & [place] 09/21/2024 12:08:17
--- NOTE | 2024-10-25 14:11 | XR_ITS ---
FINAL REPORT TECHNIQUE: Single view chest CLINICAL HISTORY: SHortness of breath, pacemaker put in 1 week ago COMPARISON: 10/17/2024 FINDINGS: A single view of the chest was obtained. Left-sided pacemaker is in place. The heart and mediastinum are within normal limits. The lungs are clear. There is no pneumothorax. IMPRESSION: No acute cardiopulmonary process. Reviewed, Interpreted and Dictated by Shelly Lopez MD Transcribed by Lizette Wallace Authenticated and [facility]
--- NOTE | 2024-10-25 14:12 | HMH.EDGENADL ---
Discharge Plan Disposition Chief Complaint: Weakness Prescriptions Prescriptions: No Action methadone 10 mg/mL Concentrate 95 mg PO DAILY doxycycline hyclate 100 mg Tablet 100 mg PO BID 5 Days Qty: 11 0RF atorvastatin [Lipitor] 20 mg tablet 20 mg PO HS Qty: 30 0RF prednisone 20 mg tablet 40 mg PO DAILY Qty: 10 0RF metformin 500 mg tablet 500 mg PO BIDWMEAL Qty: 60 0RF Referrals Follow up/Referrals: Provider,Referral, [Primary Care Provider, Medical] - See instructions Clinical Impressions Clinical Impression: Generalized weakness, SHAD (acute kidney injury) Print Language Print Language: Romanian Discharge ED Provider: Nasir Billingsley General Adult HPI <Nasir Billingsley MD - Last Filed: 10/25/24 17:09> General Chief complaint: Weakness Stated complaint: Chest Pain Time Seen by Provider: 10/25/24 14:03 Mode of Arrival: Ambulatory Source of Information: Patient Description of Symptoms (Recalled from ER Triage Doc. by RN): pt had a pacemaker placed last week. he reports feeling weak and tired since yesterday after being in the heat. History of Present Illness HPI narrative: Jericho Feng is a 53-year-old male who underwent pacemaker placement on 10/17/2024 who presents to the emergency department for complaints of generalized weakness and some mild shortness of breath as well as vomiting. Patient states that yesterday he spent all day outside and then today he is felt generally weak and has had 3 episodes of vomiting. He denies any chest pain but does report that he is mildly short of breath. He states that he has not had any significant issues since his pacemaker was placed. He denies any abdominal pain or fever. He denies any recent sick contacts. He believes that he has been eating and drinking well. He reports occasionally he will have swelling in his lower extremities but denies any currently Related Data Home Medications ?Medication ?Instructions ?Recorded ?Confirmed methadone 10 mg/mL oral concentrate 95 mg PO DAILY 10/17/24 10/17/24 Previous Rx's ?Medication ?Instructions ?Recorded atorvastatin 20 mg tablet (Lipitor) 20 mg PO HS #30 tabs 10/18/24 doxycycline hyclate 100 mg tablet 100 mg PO BID 5 days #11 tabs 10/18/24 metformin 500 mg tablet 500 mg PO BIDWMEAL #60 tabs 10/18/24 prednisone 20 mg tablet 40 mg (2 x 20 mg) PO DAILY #10 tabs 10/18/24 Allergies Allergy/AdvReac Type Severity Reaction Status Date / Time No Known Allergies Allergy Verified 10/15/24 23:29 [facility] <Nasir Billingsley MD - Last Filed: 10/25/24 17:09> [facility] Disclaimer: The information contained in this section may have been updated after the patient was seen, as this information can be updated by other users. Medical History (Updated 10/25/24 @ 16:56 by Nasir Billingsley MD) Symptomatic bradycardia Atypical chest pain Patient left without being seen Chest pain Foreign body in finger-infected Drug abuse Transaminitis Chest pain Cauda equina syndrome Opioid dependence Fixation hardware in leg Surgical History (Updated 10/23/24 @ 00:00 by Gilson Andrews) Hx of exploratory laparotomy Family History Mother Diabetes Father Coronary artery disease Social History (Updated 10/17/24 @ 15:08 by Shiv Lua CRNA) Smoking Status: Never smoker alcohol intake: never substance use type: former substance user current occupational status: employed Travel in the last 8 weeks?: None Have you lived/traveled outside [place] in past 30 days?: No Contact w/someone who lives/traveled outside US past 30 days?: No Exposure to someone with infectious disease in past 14 days?: No Do you have a fever (greater than 100.4 F or 38 C)?: No Have you tested positive for COVID-19?: No Exposed to someone with COVID-19 in past 14 days?: No Do you have a sore throat?: No Do you have a cough?: No Do you have any weakness?: No Do you have any diarrhea?: No Are you experiencing any unusual bleeding?: No Do you have any muscle aches/pain?: No Do you have any abdominal pain?: No Are you experiencing loss of taste or smell?: No Other Medical History Have you received the Flu Vaccine for this season: No Have you received the Pneumonia Vaccine: No <Nasir Billingsley MD - Last Filed: 10/25/24 17:09> ROS Obtained: Yes Systems reviewed as appropriate & no additional complaints except as documented Physical Exam <Nasir Billingsley MD - Last Filed: 10/25/24 17:09> General General appearance: alert and in no apparent distress Head Head exam: atraumatic Eye Eye exam: Present normal appearance ENT ENT exam: Present normal external ear exam Neck Neck exam: Present full ROM Chest Chest inspection: Present symmetric chest wall rise Respiratory Respiratory exam: Present normal lung sounds bilaterally; Absent respiratory distress, wheezes or stridor Cardiovascular Cardiovascular exam: Present regular rate and normal rhythm Abdominal Exam Abdominal exam: Present soft; Absent distention, tenderness or guarding exam: Present deferred Extremities Exam Extremities exam: Present normal inspection; Absent edema Back Exam Back exam: Present normal inspection Neurological Exam Neurological exam: Present alert and oriented X3 Psychiatric Psychiatric exam: Present normal affect Skin Skin exam: Present warm and dry Medical Decision Making <Nasir Billingsley MD - Last Filed: 10/25/24 17:09> Medical Records Screening: Per USPSTF and CDC recommendations, given the prevalence of disease in our region, it is our hospital?s policy to screen for HIV and viral Hepatitis for all patients aged 18 and over and those with ongoing risk factors. Baljeet Inquiry Pt receiving controlled substance: No Vital Signs: 10/25/24 14:01 10/25/24 14:15 10/25/24 15:00 Temperature 98.8 F Temperature Source Oral Pulse Rate 60 60 Pulse Rate [Right] 60 Respiratory Rate 18 10 L 7 L Blood Pressure 136/95 H 116/84 Blood Pressure [Right Arm] 136/95 H Blood Pressure Mean Blood Pressure Mean [Right Arm] 108 02 Sat by Pulse Oximetry 97 97 94 L Oxygen Delivery Method Room Air 10/25/24 15:18 10/25/24 15:30 10/25/24 16:00 Temperature Temperature Source Pulse Rate 60 60 Pulse Rate [Right] Respiratory Rate 16 8 L 13 Blood Pressure 116/84 117/84 126/83 Blood Pressure [Right Arm] Blood Pressure Mean 97 Blood Pressure Mean [Right Arm] 02 Sat by Pulse Oximetry 100 99 100 Oxygen Delivery Method Room Air Room Air 10/25/24 16:30 Temperature Temperature Source Pulse Rate 60 Pulse Rate [Right] Respiratory Rate 13 Blood Pressure 119/81 Blood Pressure [Right Arm] Blood Pressure Mean 91 Blood Pressure Mean [Right Arm] 02 Sat by Pulse Oximetry 99 Oxygen Delivery Method Lab Data Lab Results 10/25/24 14:05: WBC 10.4, RBC 5.72, Hgb 16.4, Hct 48.3, MCV 84.4, MCH 28.7, MCHC 34.0, RDW 12.8, Plt Count 244, MPV 10.9 H, Neut % (Auto) 62.0, Lymph % (Auto) 24.8, [place] % (Auto) 9.4 H, Eos % (Auto) 2.1, Baso % (Auto) 1.5, Neut # (Auto) 6.5, Lymph # (Auto) 2.6, [place] # (Auto) 1.0, Eos # (Auto) 0.2, Baso # (Auto) 0.2, Sodium 135 L, Potassium 3.8, Chloride 91 L, Carbon Dioxide 32 H, Anion Gap 15.8 H, BUN 38 H, Creatinine 1.40 H, Estimated Creat Clear 80, Estimated GFR 53 L, Est GFR ( Amer) 64, Glucose 96, Calcium 10.0, Magnesium 1.9, Total Bilirubin 1.2, AST 32, ALT 20, Alkaline Phosphatase 83, Troponin I < 0.01, NT-Pro-B Natriuret Pep 58.8, Total Protein 9.9 H D, Albumin 5.2 H, Globulin 4.7 H, Albumin/Globulin Ratio 1.1 10/25/24 16:50: Troponin I < 0.01 10/25/24 14:05 10/25/24 14:05 Orders (Tests/Meds): ED MEDICATIONS Discontinued Medications Generic Name Dose Route Start Last Admin Trade Name Freq PRN Reason Stop Dose Admin Belladonna Alkaloids 60 ml 10/25/24 17:54 10/25/24 18:05 Belladonna Alkaloids 60 Ml Ml PO 10/25/24 17:55 60 ml ONCE ONE Administration Lactated Ringer's 500 mls @ 999 mls/hr 10/25/24 14:12 10/25/24 14:18 Lactated Ringer's 500ml IV 10/25/24 14:42 999 mls/hr .Q31M ONE Administration Ondansetron HCl 4 mg 10/25/24 14:11 10/25/24 14:18 Ondansetron 4mg/2ml Vial IV 10/25/24 14:12 4 mg ONCE ONE Administration ORDERS Category Date Time Status CXR --portable [XR chest portable] Stat Exams 10/25/24 14:11 Completed POCUS Point of Care (ER Only) Stat Exams 10/25/24 14:04 Completed BNP [NT Pro Brain Natriuretic Pep.] Stat Lab 10/25/24 14:05 Completed CBC w/Auto Diff [Complete Blood Count Auto Diff] Stat Lab 10/25/24 14:05 Completed CMP [Comprehensive Metabolic Panel] Stat Lab 10/25/24 14:05 Completed Magnesium Stat Lab 10/25/24 14:05 Completed Troponin I Q3H Lab 10/25/24 16:50 Completed Troponin I Q3H Lab 10/25/24 20:15 Ordered Troponin I Stat Lab 10/25/24 14:05 Completed ECG Data Tracing #1: I reviewed this ECG and interpreted as documented below: Normal sinus rhythm with rate of 60 bpm. QTc normal at 420. No ST elevation or depression. Patient does have T wave inversions in lead III, aVF, V3 Medical Decision Narrative: Jericho Feng is a 53-year-old male who underwent pacemaker placement on 10/17/2024 who presents to the emergency department for complaints of generalized weakness and some mild shortness of breath as well as vomiting. Patient states that yesterday he spent all day outside and then today he is felt generally weak and has had 3 episodes of vomiting. He denies any chest pain but does report that he is mildly short of breath. He states that he has not had any significant issues since his pacemaker was placed. He denies any abdominal pain or fever. He denies any recent sick contacts. He believes that he has been eating and drinking well. He reports occasionally he will have swelling in his lower extremities but denies any currently. On arrival, patient is mildly hypertensive with blood pressure 136/95, heart rate with an atrial paced rhythm at 60 bpm, afebrile, oxygen saturation 97% on room air. Physical exam, stated above, reveals an overall well-appearing male no distress. He is speaking in full sentences, does not appear short of breath. Cardiopulmonary exam is unremarkable. He has a well-healing surgical scar with sherry in place to his left anterior chest wall. Abdomen is soft, nontender nondistended. He does not appear volume overloaded on physical exam. He overall appears well-hydrated. Differential diagnosis includes, but is not limited to: Dehydration, electrolyte derangement, metabolic derangement, ACS, pneumonia, volume overload, heat exposure, viral illness, among others. The most morbid conditions were considered and workup was based on these. Workup in the emergency department included: 500 cc lactated Ringer's, 4 mg IV Zofran, CBC, CMP, troponin, BNP, magnesium level, chest x-ray, [id number] cardiac ultrasound, EKG. Cardiac ultrasound performed by me personally showed estimated normal left ventricular ejection fraction. No pericardial effusion. No signs of right heart strain. See procedure note for details. EKG shows normal sinus rhythm rhythm with no ST elevation or depression, however he does have T wave inversions in lead III, aVF, V3 which were not present on most recent EKG on 10/17/2024 Chest x-ray interpreted by me personally. No focal consolidation, no widening of the mediastinum. No cardiac silhouette enlargement. Unremarkable chest x-ray. See final radiology report for details. Laboratory workup showed no leukocytosis, no anemia, sodium mildly low at 135 but potassium normal at 3.8. Anion gap of 15.8 (however has been elevated over recent visits on the and and is unchanged from those visits). Patient does have an SHAD with creatinine of 1.4 and a BUN of 38, which is most likely prerenal. Remainder of CMP is unremarkable and nonactionable. Initial troponin less than 0.01. BNP normal at 58.8. Repeat troponin is pending at this time. Patient was noted to have changes to his rhythm strip on telemetry. Repeat EKG was obtained. Patient appears to have a left bundle branch morphology mostly in the inferior and lateral leads but no STEMI based on Sgarbossa criteria. Pacer spikes are noted. It is felt that patient's pacemaker likely began firing, causing the left bundle branch morphology. At this time, patient's care was handed off to the oncoming physician, Dr. Urrutia, pending repeat troponin and reassessment. Patient was placed into ED observation at 1600 <Deepthi Urrutia, DO - Last Filed: 10/25/24 18:31> Vital Signs: 10/25/24 14:01 10/25/24 14:15 10/25/24 15:00 Temperature 98.8 F Temperature Source Oral Pulse Rate 60 60 Pulse Rate [Right] 60 Respiratory Rate 18 10 L 7 L Blood Pressure 136/95 H 116/84 Blood Pressure [Right Arm] 136/95 H Blood Pressure Mean Blood Pressure Mean [Right Arm] 108 02 Sat by Pulse Oximetry 97 97 94 L Oxygen Delivery Method Room Air 10/25/24 15:18 10/25/24 15:30 10/25/24 16:00 Temperature Temperature Source Pulse Rate 60 60 Pulse Rate [Right] Respiratory Rate 16 8 L 13 Blood Pressure 116/84 117/84 126/83 Blood Pressure [Right Arm] Blood Pressure Mean 97 Blood Pressure Mean [Right Arm] 02 Sat by Pulse Oximetry 100 99 100 Oxygen Delivery Method Room Air Room Air 10/25/24 16:30 Temperature Temperature Source Pulse Rate 60 Pulse Rate [Right] Respiratory Rate 13 Blood Pressure 119/81 Blood Pressure [Right Arm] Blood Pressure Mean 91 Blood Pressure Mean [Right Arm] 02 Sat by Pulse Oximetry 99 Oxygen Delivery Method Lab Data Lab Results 10/25/24 14:05: WBC 10.4, RBC 5.72, Hgb 16.4, Hct 48.3, MCV 84.4, MCH 28.7, MCHC 34.0, RDW 12.8, Plt Count 244, MPV 10.9 H, Neut % (Auto) 62.0, Lymph % (Auto) 24.8, [place] % (Auto) 9.4 H, Eos % (Auto) 2.1, Baso % (Auto) 1.5, Neut # (Auto) 6.5, Lymph # (Auto) 2.6, [place] # (Auto) 1.0, Eos # (Auto) 0.2, Baso # (Auto) 0.2, Sodium 135 L, Potassium 3.8, Chloride 91 L, Carbon Dioxide 32 H, Anion Gap 15.8 H, BUN 38 H, Creatinine 1.40 H, Estimated Creat Clear 80, Estimated GFR 53 L, Est GFR ( Amer) 64, Glucose 96, Calcium 10.0, Magnesium 1.9, Total Bilirubin 1.2, AST 32, ALT 20, Alkaline Phosphatase 83, Troponin I < 0.01, NT-Pro-B Natriuret Pep 58.8, Total Protein 9.9 H D, Albumin 5.2 H, Globulin 4.7 H, Albumin/Globulin Ratio 1.1 10/25/24 16:50: Troponin I < 0.01 Orders (Tests/Meds): ED MEDICATIONS Discontinued Medications Generic Name Dose Route Start Last Admin Trade Name Freq PRN Reason Stop Dose Admin Belladonna Alkaloids 60 ml 10/25/24 17:54 10/25/24 18:05 Belladonna Alkaloids 60 Ml Ml PO 10/25/24 17:55 60 ml ONCE ONE Administration Lactated Ringer's 500 mls @ 999 mls/hr 10/25/24 14:12 10/25/24 14:18 Lactated Ringer's 500ml IV 10/25/24 14:42 999 mls/hr .Q31M ONE Administration Ondansetron HCl 4 mg 10/25/24 14:11 10/25/24 14:18 Ondansetron 4mg/2ml Vial IV 10/25/24 14:12 4 mg ONCE ONE Administration ORDERS Category Date Time Status CXR --portable [XR chest portable] Stat Exams 10/25/24 14:11 Completed POCUS Point of Care (ER Only) Stat Exams 10/25/24 14:04 Completed BNP [NT Pro Brain Natriuretic Pep.] Stat Lab 10/25/24 14:05 Completed CBC w/Auto Diff [Complete Blood Count Auto Diff] Stat Lab 10/25/24 14:05 Completed CMP [Comprehensive Metabolic Panel] Stat Lab 10/25/24 14:05 Completed Magnesium Stat Lab 10/25/24 14:05 Completed Troponin I Q3H Lab 10/25/24 16:50 Completed Troponin I Q3H Lab 10/25/24 20:15 Ordered Troponin I Stat Lab 10/25/24 14:05 Completed Medical Decision Narrative: Jericho Feng is a 53-year-old male who underwent pacemaker placement on 10/17/2024 who presents to the emergency department for complaints of generalized weakness and some mild shortness of breath as well as vomiting. Patient states that yesterday he spent all day outside and then today he is felt generally weak and has had 3 episodes of vomiting. He denies any chest pain but does report that he is mildly short of breath. He states that he has not had any significant issues since his pacemaker was placed. He denies any abdominal pain or fever. He denies any recent sick contacts. He believes that he has been eating and drinking well. He reports occasionally he will have swelling in his lower extremities but denies any currently. On arrival, patient is mildly hypertensive with blood pressure 136/95, heart rate with an atrial paced rhythm at 60 bpm, afebrile, oxygen saturation 97% on room air. Physical exam, stated above, reveals an overall well-appearing male no distress. He is speaking in full sentences, does not appear short of breath. Cardiopulmonary exam is unremarkable. He has a well-healing surgical scar with sheryr in place to his left anterior chest wall. Abdomen is soft, nontender nondistended. He does not appear volume overloaded on physical exam. He overall appears well-hydrated. Differential diagnosis includes, but is not limited to: Dehydration, electrolyte derangement, metabolic derangement, ACS, pneumonia, volume overload, heat exposure, viral illness, among others. The most morbid conditions were considered and workup was based on these. Workup in the emergency department included: 500 cc lactated Ringer's, 4 mg IV Zofran, CBC, CMP, troponin, BNP, magnesium level, chest x-ray, [id number] cardiac ultrasound, EKG. Cardiac ultrasound performed by me personally showed estimated normal left ventricular ejection fraction. No pericardial effusion. No signs of right heart strain. See procedure note for details. EKG shows normal sinus rhythm rhythm with no ST elevation or depression, however he does have T wave inversions in lead III, aVF, V3 which were not present on most recent EKG on 10/17/2024 Chest x-ray interpreted by me personally. No focal consolidation, no widening of the mediastinum. No cardiac silhouette enlargement. Unremarkable chest x-ray. See final radiology report for details. Laboratory workup showed no leukocytosis, no anemia, sodium mildly low at 135 but potassium normal at 3.8. Anion gap of 15.8 (however has been elevated over recent visits on the 15 and 16th and is unchanged from those visits). Patient does have an SHAD with creatinine of 1.4 and a BUN of 38, which is most likely prerenal. Remainder of CMP is unremarkable and nonactionable. Initial troponin less than 0.01. BNP normal at 58.8. Repeat troponin is pending at this time. Patient was noted to have changes to his rhythm strip on telemetry. Repeat EKG was obtained. Patient appears to have a left bundle branch morphology mostly in the inferior and lateral leads but no STEMI based on Sgarbossa criteria. Pacer spikes are noted. It is felt that patient's pacemaker likely began firing, causing the left bundle branch morphology. At this time, patient's care was handed off to the oncoming physician, Dr. Urrutia, pending repeat troponin and reassessment. Patient was placed into ED observation at 1600 Deepthi Urrutia DO I assumed care of this patient. Patient's repeat troponin was less than 0.01. Patient did have some burning chest pain which patient was given a GI cocktail in the emergency department with some improvement of his symptoms. Patient's workup was otherwise unremarkable except for mild elevated SHAD and patient received IV fluids in the emergency department. Patient has a follow-up appointment with his formulation scientist on Thursday. A third repeat EKG was obtained which showed normal sinus rhythm without acute ST or T wave changes concerning for ischemia. Patient had an EKG that showed a left bundle branch block that appeared to be getting AV paced. Given his otherwise unremarkable workup I felt that patient was appropriate for discharge with follow-up as scheduled with cardiology. Patient was advised to return to the emergency department for acute or worsening symptoms. Procedures <Nasir Billingsley MD - Last Filed: 10/25/24 17:09> Limited Ultrasound Interpretation:: Limited cardiac ultrasound Indication: Weakness Identified cardiac views: -Cardiac parasternal long axis -Cardiac parasternal short axis -Cardiac apical four-chamber -Cardiac subxiphoid Findings: -Cardiac activity present -Wall motion grossly normal -Pericardial effusion absent -Right heart strain absent Impression: - From above Images were saved to permanent archive The study was technically adequate CPT: 59147 This study was performed by me, and I personally interpreted all images/videos. Based on my clinical judgement, these images were adequate and did not necessitate further imaging. Critical Care <Nasir Billingsley MD - Last Filed: 10/25/24 17:09> Critical Care Time Critical Care Time: No
[2024-10-25] MEDS: RINGERS SOLUTION,LACTATED 500 ML 999 ML IV (14:18)
[2024-10-25] MEDS: ONDANSETRON 4MG/2ML VIAL 4 MG IV (14:18)
[2024-10-25 14:20] LABS: Albumin Level 5.2 g/dl (3.5-5.0); Chloride 91 mmol/L (98-107); Potassium 3.8 mmoL/L (3.5-5.1); Sodium 135 mmol/L (136-145)
[2024-10-25 14:23] LABS: Alanine Aminotransferase 20 U/L (12-78); Albumin/Globulin Ratio 1.1 (1.1-1.8); Alkaline Phosphatase 83 U/L (38-126); Anion Gap 15.8 mEq/L (5-15); Aspartate Amino Transferase 32 U/L (17-59); Bilirubin,Total 1.2 mg/dl (0.2-1.3); Blood Urea Nitrogen 38 mg/dl (9-20); Carbon Dioxide 32 mmol/L (22.0-30.0); Creatinine Clearance Estimated 80 mL/min (50-200); Creatinine,Serum 1.40 mg/dl (0.66-1.25); Estimated Glomerular Filt Rate 53 ml/min (>60); GFR (African American) 64 ML/MIN (>60); Globulin 4.7 g/dL (1.3-3.2); Total Protein,Serum 9.9 g/dl (6.3-8.2)
[2024-10-25 14:24] LABS: Calcium 10.0 mg/dl (8.4-10.2); Glucose 96 mg/dl (74-100); Magnesium 1.9 mg/dl (1.6-2.3)
[2024-10-25 14:26] LABS: Hematocrit 48.3 % (42.0-52.0); Hemoglobin 16.4 g/dL (14.1-18.0); Immature Granulocytes % 0.2 %; Mean Corpuscular HGB Conc 34.0 g/dL (31.8-35.4); Mean Corpuscular Hemoglobin 28.7 pg (27.0-31.2); Mean Corpuscular Volume 84.4 fl (80-94); Nucleated Red Blood Cells % 0 %; Platelet Count 244 K/mm3 (142-424); Red Blood Count 5.72 M/mm3 (4.60-6.20); Red Cell Distribution Width-SD 39.3 fL; White Blood Count 10.4 K/mm3 (4.8-10.8)
[2024-10-25 14:33] LABS: NT Pro Brain Natriuretic Pep. 58.8 pg/mL (0-125)
[2024-10-25 14:36] LABS: Troponin I < 0.01 ng/ml (0.00-0.034)
--- NOTE | 2024-10-25 15:08 | ECG_ITS ---
APPROVED REPORT Exam: Resting ECG HR:60 bpm ECG Measurements Heart Rate 60 AXES AL 242 P 264 QRSd 175 QRS -75 QT 538 T 92 QTc 538 Conclusion ELECTRONIC ATRIAL PACEMAKER ELECTRONIC VENTRICULAR PACEMAKER ABNORMAL RHYTHM ECG UNCONFIRMED REPORT Atrially paced rhythm. Left bundle branch morphology but no STEMI based on Sgarbossa criteria Electronically signed by : LETICIA BAXTER, 10/25/2024 17:00:48
[2024-10-25 17:18] LABS: Troponin I < 0.01 ng/ml (0.00-0.034)
--- NOTE | 2024-10-25 17:44 | ECG_ITS ---
APPROVED REPORT Exam: Resting ECG HR:59 bpm ECG Measurements Heart Rate 59 AXES MA 305 P 73 QRSd 90 QRS -56 QT 434 T -38 QTc 434 Conclusion Sinus bradycardia [address] or T wave changes concerning for ischemia Electronically signed by : Deepthi Urrutia, 10/26/2024 00:32:14
[2024-10-25] MEDS: BELLADONNA ALKALOIDS 60 ML ML PO (18:05)
== END 2024-10-25 18:38 | disposition home or self-care (01) ==
PROVIDERS: Emergency Provider Student in an Organized Health Care Education/Training Program
DX: N17.9 Acute kidney failure, unspecified (principal); R53.1 Weakness
CPT/HCPCS: 71045; 80053; 83735; 83880; 84484; 85025; 93005; 96374; 99285; J2405; J7120

== ENCOUNTER 2024-11-22 12:52 | Emergency (ER) | payer MEDICAID, SELFPAY ==
[2024-11-22] VITALS (10 sets, daily range): BP systolic 106–129; BP diastolic 74–91; PULSE 57–82; RESP 8–20; TEMP 36.8–37.1; O2SAT 90–100; BMI 31.0
--- NOTE | 2024-11-22 12:53 | ECG_ITS ---
APPROVED REPORT Exam: Resting ECG HR:60 bpm ECG Measurements Heart Rate 60 AXES GA 223 P 216 QRSd 93 QRS 21 QT 421 T -28 QTc 421 Conclusion Atrial paced rhythm Normal axis Normal intervals T-wave inversions in II, III, AVF Electronically signed by : Rufus Kraus, 11/22/2024 16:26:48
--- OUTSIDE RECORDS SUMMARY | 2024-11-22 12:57 | XMS_ITS | Clinical Summary ---
Author Organization [facility] Address [address] [place] [address] Phone Care Team Providers Care Gas Usage Meter Clerk Name Role Phone Unavailable Unavailable Conditions or [...] mass index [BMI] 27.0-27.9, adult Hepatitis C 04822192 (SNOMED CT) 08/05 Active 08/05 Tiffany Smalls RMA Viral hepatitis C Body mass index (BMI) 27.0-27.9; adult Z68.27 (ICD-10-CM ) 07/29 Removed 07/29 Bernie Ibanez APRN Body mass index [BMI] 27.0-27.9, adult Rhinorrhea 68947334 (SNOMED CT) 07/29 Active 07/29 Bernie Ibanez APRN Nasal discharge Body mass index (BMI) 28.0-28.9; adult Z68.28 (ICD-10-CM ) 07/22 Correction 07/23 Bernie Ibanez APRN Body mass index [BMI] 28.0-28.9, adult Nasal pain 990334115 (SNOMED CT) 07/29 Active 07/29 Benrie Ibanez APRN Pain of nose Body mass index (BMI) 28.0-28.9; adult Z68.28 (ICD-10-CM ) 07/22 Removed 07/23 Verónica Brown APRN Body mass index [BMI] 28.0-28.9, adult Body mass index (BMI) 27.0-27.9; adult Z68.27 (ICD-10-CM ) 07/17 Correction 07/17 Verónica Brown APRN Body mass index [BMI] 27.0-27.9, adult GERD (gastroesop hageal reflux disease) 058135594 (SNOMED CT) 07/22 Active 07/23 Verónica Brown APRN Gastroesophagea l reflux disease Counseling for nutrition Z71.3 (ICD-10-CM ) 07/17 Inactive 07/17 Lilia Mobley APRN Dietary counseling and surveillance Body mass index (BMI) 27.0-27.9; adult Z68.27 (ICD-10-CM ) 07/17 Removed 07/17 Lilia Mobley APRN Body mass index [BMI] 27.0-27.9, adult Insomnia 736592529 (SNOMED CT) 07/17 Active 07/17 Lilia Mobley APRN Insomnia Tobacco User 472318031 (SNOMED CT) 07/17 Active 07/17 Lilia Mobley APRN Tobacco user Depression 38025563 (SNOMED CT) 07/17 Active 07/17 Lilia Mobley APRN Depressive disorder Anxiety Disorder 120704072 (SNOMED CT) 07/17 Active 07/17 Lilia Mobley APRN Anxiety disorder Medications Medication Instructions Start Date Stop Date Generic Name NDC Provider MULTI-VITAMINS TABS Take 1 tablet by mouth once a day multivitamin 14342593843 Lilia Mobley APRN TRAZODONE HCL 100 MG TABS Take 1 tablet by mouth at bedtime trazodone 83526724168 Lilia Mobley APRN Vistaril 25 mg capsule Take 1 to 2 capsule by mouth at bedtime as needed for sleep hydroxyzine pamoate 50374610625 Bernie Ibanez EMMA AMITRIPTYLINE HCL 50 MG TABS Take 1 tablet by mouth every night amitriptyline 90794952222 Lilia Mobley APRN CLARITIN 10 MG TABS Take 1 tablet by mouth once a day loratadine 48055006718 Bernie Ibanez EMMA MUPIROCIN 2 % OINT Apply a small amount as directed once or twice a day for 7 to 10 days, to affected nostril. mupirocin 42548072851 Bernie Ibanez APRN Vistaril 25 mg capsule Take 1 to 2 capsule by mouth at bedtime as needed for sleep hydroxyzine pamoate 65485660608 Bernie Ibanez EMMA GOODSENSE NICOTINE 4 MG LOZG Hold 1 lozenge to inside of mouth (buccal) every two hours as needed Do not exceed 5 lozenges in 6 hours or 20 in 24 hours nicotine (polacrilex) 21185916275 Lilia Mobley APRN OMEPRAZOLE 20 MG CPDR Take 1 capsule by mouth once a day FOR ACID REFLUX omeprazole 59043920932 Verónica Brown APRN NICOTINE STEP 1 21 MG/24HR PT24 APPLY 1 PATCH TO SKIN EVERY MORNING DIRECTED REMOVE AND REPLACE PATCH DAILY FOR 6 TO 8 WEEKS. THEN DECREASE TO THE 14 MG PATCHES. nicotine 21288869022 Verónica Brown APRN GOODSENSE NICOTINE 4 MG LOZG Hold 1 lozenge to inside of mouth (buccal) every two hours as needed Do not exceed 5 lozenges in 6 hours or 20 in 24 hours nicotine (polacrilex) 75231957025 Liliarose Mobley EMMA TRAZODONE HCL 50 MG TABS Take 1 tablet by mouth at bedtime trazodone 98516996162 Tiffany PERKINS TRAZODONE HCL 100 MG TABS Take 1 tablet by mouth at bedtime trazodone 06657301244 Lilia Mobley APRN TRAZODONE HCL 50 MG TABS Take 1 tablet by mouth at bedtime trazodone 93110776432 Tiffany PERKINS BUPRENORPHINE HCL-NALOXONE HCL 8-2 MG SUBL buprenorphine-na loxone 15795938676 Tiffany PERKINS Medications Administered No information available. [...] in Blood ABS NEUTROPH 5517 CELLS/UL 10*3/uL [phone] N Neutrophils [#/volume] in Blood MPV 12.1 [...] NON-REACTI VE N Hepatitis B virus core IgM Ab [Presence] in Serum HBSAG NON-REACTIVE NON-REACTI VE N Hepatitis B virus surface Ag [Units/volume] in Serum ANTI-HAV IGM NON-REACTIVE NON-REACTI VE N Hepatitis A virus IgM Ab [Presence] in Serum Plan of Care Type Date Detail Referral [facility], [address] [place] [address] [address], [place], [address] Referral excluded fr om report: Pending order T1 CBC with diff Pending order T1 CMP Pending order T1 Acute Hepatit s Panel Pending order T1 HIV 1/2 Ag & Ab 4th gen -consent required Pending order T1 TSH reflex to free T4 Pending order T1 HGBA1c Patient education Patient Educat ion Given Procedures Code Procedure Name Date Entry Date [facility]-[id number] Medication Recon[place] 4004F Patient screened for tobacco use and received tobacco cessation intervention CPT-3074F Most recent systolic blood pressure <130 mm Hg CPT-3078F Most recent diastoli c blood pressure <80 mm Hg [id number] Giving encouragement to exercise [id number] Dietary management education/guidance/counseling [facility]-[id number] Medication Reconciliation CPT II 4004F Patient screened for tobacco use and received tobacco cessation intervention CPT-3075F Most recent systolic blood pressure 130-139 mm Hg CPT-3079F Most recent diastoli c blood pressure 80-89 mm Hg CPT-1159F Medication list docu mented in medical record CPT-1160F Review of all medica tions by a prescribing practitioner [facility] 6399 T1 CBC with diff [facility] 66223 T1 CMP [facility] 76327 T1 Acute Hepatits Panel 2021 [facility] 24205 T1 HIV 1/2 Ag & Ab 4 th gen -consent required [facility] 27735 T1 TSH reflex to free T4 05/10/24 [facility] 496 T1 HGBA1c [id number] Medication Reconciliation SCT-[id number] Giving encouragement to exercise CPT-3074F Most recent systolic blood pressure <130 mm Hg CPT-3078F Most recent diastoli c blood pressure <80 mm Hg CPT-1159F Medication list docu mented in medical record CPT-1160F Review of all medica tions by a prescribing practitioner SCT-[id number] Medication Reconciliation SCT-[id number] Giving encouragement to exercise SCT-[id number] Dietary management education/guidance/counseling CPT II 4004F Patient [...]
--- OUTSIDE RECORDS SUMMARY | 2024-11-22 12:58 | XMS_ITS | Clinical Summary ---
Author Organization [facility] Address [address], [address] [place] [address] Care Team Providers Care Metal Coater Name Role Phone Unavailable Primary Care Provider [...] Not on file Insurance [place]
--- OUTSIDE RECORDS SUMMARY | 2024-11-22 12:59 | XMS_ITS | Clinical Summary ---
Author Organization [facility] Address [facility] [place] [address] Care Team Providers Care Sql Consultant Name Role Phone Pcp, No Primary Care [...] release of HIV test results or diagnoses. [id number] Allergies No known active allergies Medications [...] Immunization: Influenza (MyChart) (#1) 2024 Care Teams Sql Consultant Relationship Specialty Start Date End Date Pcp, No No Address PCP - General 06/08/23
--- NOTE | 2024-11-22 13:02 | XR_ITS ---
FINAL REPORT CLINICAL HISTORY: short of breath COMPARISON: 10/25/2024 FINDINGS: A left-sided pacer is present. Overlying skin sherry are noted. The heart size is normal. The mediastinum is normal. There are mild chronic changes in both lungs. There are no pleural effusions. There is no pneumothorax. There is no osseous abnormality. IMPRESSION: No acute cardiopulmonary process Reviewed, Interpreted and Dictated by Tan Gan MD Transcribed by Shahnaz Barker Authenticated and [facility]
[2024-11-22 13:13] LABS: Hematocrit 45.4 % (42.0-52.0); Hemoglobin 15.3 g/dL (14.1-18.0); Immature Granulocytes % 0.1 %; Mean Corpuscular HGB Conc 33.7 g/dL (31.8-35.4); Mean Corpuscular Hemoglobin 28.0 pg (27.0-31.2); Mean Corpuscular Volume 83.2 fl (80-94); Nucleated Red Blood Cells % 0 %; Platelet Count 235 K/mm3 (142-424); Red Blood Count 5.46 M/mm3 (4.60-6.20); Red Cell Distribution Width-SD 37.9 fL; White Blood Count 7.1 K/mm3 (4.8-10.8)
--- NOTE | 2024-11-22 13:16 | ED_ITS ---
Discharge Plan Disposition Patient Disposition: Home, Self-Care Prescriptions Prescriptions: No Action midodrine 5 mg tablet 5 mg PO TID Qty: 90 1RF Rx Instructions: do not give last dose of day after 6PM or within 4 hrs of bedtime Referrals Follow up/Referrals: Barber Pulido MD [Staff Physician, Cardiology] - See instructions Provider,MD Fabrice [Primary Care Provider, Medical] - See instructions Activity Restrictions/Add. Instructions Additional Instructions/Restrictions: Increase fluids and rest. Please follow-up at the cardiology clinic at 9 AM in the morning as discussed. Please report to the ED if any worsening signs or symptoms occur. Clinical Impressions Clinical Impression: Atypical chest pain Instructions Patient Instructions: DI for Atypical Chest Pain Print Language Print Language: Yi Discharge ED Provider: Rufus Kraus HPI <Kathleen Joiner (ED), OUTSIDE RESIDENTIAL SALES PROFESSIONAL - Last Filed: 11/22/24 19:18> General Chief Complaint: Chest Pain Stated Complaint: chest pain Time Seen by Provider: 11/22/24 13:00 History of Present Illness HPI narrative: 53-year-old male presents to the ED today with complaint of chest pain that started yesterday. He complains of shortness of air, weakness with left arm pain. He has also had nausea with vomiting and dizziness. Patient was admitted a month ago for symptomatic bradycardia and a pacemaker was placed by Dr. Pulido. It was placed on 10/17/2024. Related Data Previous Rx's ?Medication ?Instructions ?Recorded midodrine 5 mg tablet 5 mg PO TID #90 tabs 5 Allergies Allergy/AdvReac Type Severity Reaction Status Date / Time No Known Allergies Allergy Verified 11/23/24 11:55 PFS <Kathleen Joiner (ED), OUTSIDE RESIDENTIAL SALES PROFESSIONAL - Last Filed: 11/22/24 19:18> [facility] Disclaimer: The information contained in this section may have been updated after the patient was seen, as this information can be updated by other users. Medical History Symptomatic bradycardia Atypical chest pain Patient left without being seen Chest pain Foreign body in finger-infected Drug abuse Transaminitis Chest pain Cauda equina syndrome Opioid dependence Fixation hardware in leg Surgical History Hx of exploratory laparotomy Family History Mother Diabetes Father Coronary artery disease Social History Smoking Status: Former smoker tobacco type: cigarettes packs per day: 2 alcohol intake: never substance use type: former substance user current occupational status: employed Travel in the last 8 weeks?: None Other Medical History Have you received the Flu Vaccine for this season: No Have you received the Pneumonia Vaccine: No <Kathleen Joiner (ED), OUTSIDE RESIDENTIAL SALES PROFESSIONAL - Last Filed: 11/22/24 19:18> ROS Obtained: Yes Systems reviewed as appropriate & no additional complaints except as documented Constitutional Constitutional: Reports as per HPI Physical Exam <Kathleen Joiner (ED), OUTSIDE RESIDENTIAL SALES PROFESSIONAL - Last Filed: 11/22/24 19:18> General General appearance: alert Head Head exam: atraumatic and normocephalic Eye Eye exam: Present PERRL and EOMI ENT ENT exam: Present mucous membranes moist Neck Neck exam: Present full ROM and trachea midline Chest Chest inspection: Present normal inspection Respiratory Respiratory exam: Present normal lung sounds bilaterally Cardiovascular Cardiovascular exam: Present regular rate, normal rhythm, normal heart sounds, +S1 and +S2 Abdominal Exam Abdominal exam: Present soft and normal bowel sounds exam: Present normal inspection Extremities Exam Extremities exam: Present normal inspection, full ROM and normal capillary refill Back Exam Back exam: Present normal inspection Neurological Exam Neurological exam: Present alert, oriented X3 and normal gait Skin Skin exam: Present warm, dry and intact HEART Score <Kathleen Joiner (ED), OUTSIDE RESIDENTIAL SALES PROFESSIONAL - Last Filed: 11/22/24 19:18> HEART Score HEART Score assessment performed?: Yes History (anamnesis): Moderately suspicious ECG: Normal Age: 45-65 years Risk factors: 1-2 risk factors Troponin: </= normal limit HEART Score: 3 <Rufus Kraus DO - Last Filed: 11/24/24 10:30> HEART Score HEART Score: 3 Critical Care <Kathleen Joiner (ED), OUTSIDE RESIDENTIAL SALES PROFESSIONAL - Last Filed: 11/22/24 19:18> Critical Care Time Critical Care Time: No Medical Decision Making <Kathleen Jonier (ED), OUTSIDE RESIDENTIAL SALES PROFESSIONAL - Last Filed: 11/22/24 19:18> Baljeet Inquiry Pt receiving controlled substance: No Baljeet was queried for this patient: No Vital Signs Vital Signs: 11/22/24 13:02 11/22/24 13:23 11/22/24 13:30 Temperature 98.7 F Temperature Source Oral Pulse Rate 60 60 Pulse Rate [Left Radial] 60 Respiratory Rate 13 20 8 L Blood Pressure 120/81 106/74 L Blood Pressure [Right Arm] 121/91 H Blood Pressure Mean [Right Arm] 101 02 Sat by Pulse Oximetry 100 97 99 Oxygen Delivery Method Room Air 11/22/24 13:33 11/22/24 14:30 11/22/24 15:00 Temperature Temperature Source Pulse Rate 60 60 57 L Pulse Rate [Left Radial] Respiratory Rate 10 L 16 Blood Pressure 116/78 129/91 H Blood Pressure [Right Arm] Blood Pressure Mean [Right Arm] 02 Sat by Pulse Oximetry 92 L 90 L Oxygen Delivery Method 11/22/24 15:30 11/22/24 16:00 11/22/24 16:30 Temperature Temperature Source Pulse Rate 59 L 82 Pulse Rate [Left Radial] Respiratory Rate 10 L 9 L 15 Blood Pressure 113/80 116/89 129/81 Blood Pressure [Right Arm] Blood Pressure Mean [Right Arm] 02 Sat by Pulse Oximetry 98 98 Oxygen Delivery Method Room Air 11/22/24 17:40 Temperature 98.2 F Temperature Source Pulse Rate 60 Pulse Rate [Left Radial] Respiratory Rate 20 Blood Pressure 116/89 Blood Pressure [Right Arm] Blood Pressure Mean [Right Arm] 02 Sat by Pulse Oximetry Oxygen Delivery Method Room Air Lab Data Labs: Lab Results 11/22/24 12:58: WBC 7.1, RBC 5.46, Hgb 15.3, Hct 45.4, MCV 83.2, MCH 28.0, MCHC 33.7, RDW 12.4, Plt Count 235, MPV 10.3, Neut % (Auto) 48.9, Lymph % (Auto) 32.2, Garza % (Auto) 11.1 H, Eos % (Auto) 5.2, Baso % (Auto) 2.5 H, Neut # (Auto) 3.5, Lymph # (Auto) 2.3, Garza # (Auto) 0.8, Eos # (Auto) 0.4, Baso # (Auto) 0.2, D-Dimer 1.12 H, Sodium 139, Potassium 4.0, Chloride 101, Carbon Dioxide 27, Anion Gap 15.0, BUN 13, Creatinine 1.00, Estimated GFR 78, Est GFR ( Amer) 94, Glucose 108 H, Calcium 9.4, Magnesium 1.8, Total Bilirubin 0.4, AST 30, ALT 18, Alkaline Phosphatase 74, Troponin I < 0.01, NT-Pro-B Natriuret Pep 418 H, Total Protein 8.1, Albumin 4.5, Globulin 3.6 H, Albumin/Globulin Ratio 1.3, Lipase 77 11/22/24 16:02: Troponin I < 0.01 11/22/24 12:58 11/22/24 12:58 Response Orders (Tests/Meds): ED MEDICATIONS Discontinued Medications Generic Name Dose Route Start Last Admin Trade Name Freq PRN Reason Stop Dose Admin Iopamidol 80 ml 11/22/24 14:02 11/22/24 14:04 Iopamidol-370 (76%);100ml Bottle IV 11/22/24 14:03 80 ml ONCE ONE Administration Sodium Chloride 40 ml 11/22/24 14:02 11/22/24 14:04 0.9 % Sodium Chloride 50 Ml Vial IV 11/22/24 14:03 40 ml ONCE ONE Administration Sodium Chloride 10 ml 11/22/24 14:02 11/22/24 14:04 Sodium Chloride 0.9% 10ml Syr (Rad Only) IV 11/22/24 14:03 10 ml ONCE ONE Administration ORDERS Category Date Time Status CTA Chest [CT angio chest PE protocol] Stat Cat Scan 11/22/24 13:41 Completed Chest XR -- portable [XR chest portable] Stat Exams 11/22/24 13:02 Completed BNP [NT Pro Brain Natriuretic Pep.] Stat Lab 11/22/24 12:58 Completed CBC [Complete Blood Count Auto Diff] Stat Lab 11/22/24 12:58 Completed Comprehensive Metabolic Panel Stat Lab 11/22/24 12:58 Completed D-Dimer Stat Lab 11/22/24 12:58 Completed Lipase Stat Lab 11/22/24 12:58 Completed Magnesium Stat Lab 11/22/24 12:58 Completed Trop I [Troponin I] Stat Lab 11/22/24 12:58 Completed Troponin I Q3H Lab 11/22/24 16:02 Completed MDM Narrative Medical Decision Narrative: patient is a 53-year-old male presenting to the emergency department for evaluation of chest pain, weakness, left arm pain and dizziness. Patient is hemodynamically stable and nontoxic-appearing upon arrival, afebrile. Differential diagnosis includes PA, ACS, viral illness, among other. Workup will be conducted with hematologic labs, specific imaging. Initial inventions include crystalloid bolus, analgesics. Initial workup reviewed by me hematologic labs are remarkable for elevated BNP of 418 however patient has no symptoms of overload. No swelling. Patient CTA was negative. Please see full read for report. Patient and I discussed at length him following up with cardiology TED. I told him to show up at Dr. Pulido's office in the morning at 9 AM to be seen. We discussed following up for further testing that may be needed. We have ruled out blood clots or heart attacks. Patient workup negative. He is on no oxygen breathing 98% room air. Blood pressure is 129/81. Heart rate is 82. Patient looks well. He says he does want to follow-up with cardiology as soon as he can. He talks about not having a ride because he does not have a license. He says he will find a way to follow-up with cardiology. Patient is safe for discharge home. I discussed this with Dr. Billingsley. <Rufus Kraus, - Last Filed: 11/24/24 10:30> Vital Signs Vital Signs: 11/22/24 13:02 11/22/24 13:23 11/22/24 13:30 Temperature 98.7 F Temperature Source Oral Pulse Rate 60 60 Pulse Rate [Left Radial] 60 Respiratory Rate 13 20 8 L Blood Pressure 120/81 106/74 L Blood Pressure [Right Arm] 121/91 H Blood Pressure Mean [Right Arm] 101 02 Sat by Pulse Oximetry 100 97 99 Oxygen Delivery Method Room Air 11/22/24 13:33 11/22/24 14:30 11/22/24 15:00 Temperature Temperature Source Pulse Rate 60 60 57 L Pulse Rate [Left Radial] Respiratory Rate 10 L 16 Blood Pressure 116/78 129/91 H Blood Pressure [Right Arm] Blood Pressure Mean [Right Arm] 02 Sat by Pulse Oximetry 92 L 90 L Oxygen Delivery Method 11/22/24 15:30 11/22/24 16:00 11/22/24 16:30 Temperature Temperature Source Pulse Rate 59 L 82 Pulse Rate [Left Radial] Respiratory Rate 10 L 9 L 15 Blood Pressure 113/80 116/89 129/81 Blood Pressure [Right Arm] Blood Pressure Mean [Right Arm] 02 Sat by Pulse Oximetry 98 98 Oxygen Delivery Method Room Air 11/22/24 17:40 Temperature 98.2 F Temperature Source Pulse Rate 60 Pulse Rate [Left Radial] Respiratory Rate 20 Blood Pressure 116/89 Blood Pressure [Right Arm] Blood Pressure Mean [Right Arm] 02 Sat by Pulse Oximetry Oxygen Delivery Method Room Air Lab Data Labs: Lab Results 11/22/24 12:58: WBC 7.1, RBC 5.46, Hgb 15.3, Hct 45.4, MCV 83.2, MCH 28.0, MCHC 33.7, RDW 12.4, Plt Count 235, MPV 10.3, Neut % (Auto) 48.9, Lymph % (Auto) 32.2, Garza % (Auto) 11.1 H, Eos % (Auto) 5.2, Baso % (Auto) 2.5 H, Neut # (Auto) 3.5, Lymph # (Auto) 2.3, Garza # (Auto) 0.8, Eos # (Auto) 0.4, Baso # (Auto) 0.2, D-Dimer 1.12 H, Sodium 139, Potassium 4.0, Chloride 101, Carbon Dioxide 27, Anion Gap 15.0, BUN 13, Creatinine 1.00, Estimated GFR 78, Est GFR ( Amer) 94, Glucose 108 H, Calcium 9.4, Magnesium 1.8, Total Bilirubin 0.4, AST 30, ALT 18, Alkaline Phosphatase 74, Troponin I < 0.01, NT-Pro-B Natriuret Pep 418 H, Total Protein 8.1, Albumin 4.5, Globulin 3.6 H, Albumin/Globulin Ratio 1.3, Lipase 77 11/22/24 16:02: Troponin I < 0.01 Response Orders (Tests/Meds): ED MEDICATIONS Discontinued Medications Generic Name Dose Route Start Last Admin Trade Name Freq PRN Reason Stop Dose Admin Iopamidol 80 ml 11/22/24 14:02 11/22/24 14:04 Iopamidol-370 (76%);100ml Bottle IV 11/22/24 14:03 80 ml ONCE ONE Administration Sodium Chloride 40 ml 11/22/24 14:02 11/22/24 14:04 0.9 % Sodium Chloride 50 Ml Vial IV 11/22/24 14:03 40 ml ONCE ONE Administration Sodium Chloride 10 ml 11/22/24 14:02 11/22/24 14:04 Sodium Chloride 0.9% 10ml Syr (Rad Only) IV 11/22/24 14:03 10 ml ONCE ONE Administration ORDERS Category Date Time Status CTA Chest [CT angio chest PE protocol] Stat Cat Scan 11/22/24 13:41 Completed Chest XR -- portable [XR chest portable] Stat Exams 11/22/24 13:02 Completed BNP [NT Pro Brain Natriuretic Pep.] Stat Lab 11/22/24 12:58 Completed CBC [Complete Blood Count Auto Diff] Stat Lab 11/22/24 12:58 Completed Comprehensive Metabolic Panel Stat Lab 11/22/24 12:58 Completed D-Dimer Stat Lab 11/22/24 12:58 Completed Lipase Stat Lab 11/22/24 12:58 Completed Magnesium Stat Lab 11/22/24 12:58 Completed Trop I [Troponin I] Stat Lab 11/22/24 12:58 Completed Troponin I Q3H Lab 11/22/24 16:02 Completed ECG Data Tracing #1: Attestation: I reviewed this ECG and interpreted as documented below: ECG Narrative: EKG personally interpreted by me demonstrates an atrial paced rhythm at a rate of 60 bpm, normal axis, no AR prolongation, narrow QRS, no QTc prolongation. There is T wave inversions in leads II, III, and aVF that are present on prior EKG. MDM Narrative Medical Decision Narrative: patient is a 53-year-old male presenting to the emergency department for evaluation of chest pain, weakness, left arm pain and dizziness. Patient is hemodynamically stable and nontoxic-appearing upon arrival, afebrile. Differential diagnosis includes PA, ACS, viral illness, among other. Workup will be conducted with hematologic labs, specific imaging. Initial inventions include crystalloid bolus, analgesics. Initial workup reviewed by me hematologic labs are remarkable for elevated BNP of 418 however patient has no symptoms of overload. No swelling. Patient CTA was negative. Please see full read for report. Patient and I discussed at length him following up with cardiology TED. I told him to show up at Dr. Pulido's office in the morning at 9 AM to be seen. We discussed following up for further testing that may be needed. We have ruled out blood clots or heart attacks. Patient workup negative. He is on no oxygen breathing 98% room air. Blood pressure is 129/81. Heart rate is 82. Patient looks well. He says he does want to follow-up with cardiology as soon as he can. He talks about not having a ride because he does not have a license. He says he will find a way to follow-up with cardiology. Patient is safe for discharge home. I was consulted by the JARVIS, and we discussed the complexity of problems being addressed. I approved the treatment and management plan for this patient's care in the emergency department, thus performing a substantive portion of the medical decision making. I evaluated this patient independently and reviewed plan of care with JARVIS. The patient comes in complaining of left sided chest pain, somewhat pleuritic in nature. Initial EKG reviewed by me personally, and documented above. Compared to priors and is largely unchanged. No concerning findings for acute myocadial ischemia. Given pleuritic pain we decided to proceed with CT PE study. This study was negative. Troponins were also both < 0.01. Heart score is low to medium risk. We were able to secure next day follow up in clinic with Dr. Pulido. patient was amenable and was discharged home in stable condition. Rufus Kraus DO
[2024-11-22 13:18] LABS: Alanine Aminotransferase 18 U/L (12-78); Albumin Level 4.5 g/dl (3.5-5.0); Albumin/Globulin Ratio 1.3 (1.1-1.8); Alkaline Phosphatase 74 U/L (38-126); Anion Gap 15.0 mEq/L (5-15); Aspartate Amino Transferase 30 U/L (17-59); Bilirubin,Total 0.4 mg/dl (0.2-1.3); Blood Urea Nitrogen 13 mg/dl (9-20); Calcium 9.4 mg/dl (8.4-10.2); Carbon Dioxide 27 mmol/L (22.0-30.0); Chloride 101 mmol/L (98-107); Creatinine,Serum 1.00 mg/dl (0.66-1.25); Estimated Glomerular Filt Rate 78 ml/min (>60); GFR (African American) 94 ML/MIN (>60); Globulin 3.6 g/dL (1.3-3.2); Glucose 108 mg/dl (74-100); Potassium 4.0 mmoL/L (3.5-5.1); Sodium 139 mmol/L (136-145); Total Protein,Serum 8.1 g/dl (6.3-8.2)
[2024-11-22 13:22] LABS: D-Dimer 1.12 ug/mL (0.0-0.5)
[2024-11-22 13:35] LABS: Troponin I < 0.01 ng/ml (0.00-0.034)
[2024-11-22 13:38] LABS: Lipase 77 U/L (23-300); Magnesium 1.8 mg/dl (1.6-2.3)
--- NOTE | 2024-11-22 13:41 | CT_ITS ---
FINAL REPORT TECHNIQUE: The patient was injected with IV contrast. Axial images were obtained through the chest in a PE protocol. 3-D reconstruction images were also performed. Individualized dose reduction techniques using automated exposure control or adjustment of the MA and/or KV according to patient's size were employed. CLINICAL HISTORY: short of breath COMPARISON: None FINDINGS: Mediastinal vasculature is adequately opacified. No pulmonary artery filling defects are identified to suggest PE. There is no aortic dissection. There is no axillary adenopathy. There is no hilar or mediastinal adenopathy. The heart size is normal. There is no pericardial or pleural effusion. Limited images of the upper abdomen are unremarkable. No suspicious infiltrate or nodule is identified. IMPRESSION: No pulmonary embolus or dissection. Reviewed, Interpreted and Dictated by Tan Gan MD Transcribed by Shahnaz Barker Authenticated and [facility]
[2024-11-22 13:47] LABS: NT Pro Brain Natriuretic Pep. 418 pg/mL (0-125)
[2024-11-22] MEDS: IOPAMIDOL-370 (76%);100ML BOTTLE 80 ML IV (14:04)
[2024-11-22] MEDS: SODIUM CHLORIDE 0.9% 10ML SYR (RAD ONLY) 10 ML IV (14:04)
[2024-11-22] MEDS: 0.9 % SODIUM CHLORIDE 50 ML VIAL 40 ML IV (14:04)
[2024-11-22 16:42] LABS: Troponin I < 0.01 ng/ml (0.00-0.034)
== END 2024-11-22 17:42 | disposition home or self-care (01) ==
PROVIDERS: Nurse Practitioner; Emergency Provider Student in an Organized Health Care Education/Training Program
DX: R07.89 Other chest pain (principal); R06.02 Shortness of breath; R11.2 Nausea with vomiting, unspecified; R42 Dizziness and giddiness; Z87.891 Personal history of nicotine dependence; Z95.0 Presence of cardiac pacemaker
CPT/HCPCS: 71045; 71275; 80053; 83690; 83735; 83880; 84484; 85025; 85378; 93005; 99285; Q9967

== ENCOUNTER 2024-11-30 06:05 | Outpatient (CLI) | payer MEDICAID, SELFPAY ==
--- NOTE | 2024-11-30 | CA_ITS ---
APPROVED REPORT Exam: Pharmacologic Technologist: Mary Kate Ortiz Stress Nurse: Tonia Joaquin Ht: 5 ft 9 in Wt: 188 lbs BSA: 2.01 m2 HR: 60 bpm BP: 123/91 mmHg Stress Test Details Test: Lexiscan HR Resting HR: 60 bpm Max Heart Rate (APMHR): 164.667744 bpm Max HR Achieved: 60 bpm Target HR (85% APMHR): 139.886030 bpm % of APMHR: 36.59 Recovery HR: 60 bpm BP Resting BP: 123.0/91.0 mmHg Max BP: 127.0/80.0 mmHg Recovery BP: 122.0/84.0 mmHg ECG Resting ECG: AV paced Stress ECG Conclusion Symptoms: None Arrhythmias/Ectopy: Demand ventricular pacemaker inhibitioned during Lexiscan. Demand mode Ventricular pacemaker throughout test. ST-T Changes: Less than 0.[address] segment changes. Conclusion: Non-diagnostic ECG/ Lexiscan. Electronically signed by : Harmony Sandoval MD 11/30/2024 11:56:04
--- OUTSIDE RECORDS SUMMARY | 2024-11-30 06:10 | XMS_ITS | Clinical Summary ---
Author Organization [employer] [facility] Address [address] [place] [address] Phone Care Team Providers Care Disabilities Services Officer Name Role Phone Unavailable Unavailable Conditions or [...] mass index [BMI] 27.0-27.9, adult Hepatitis C [id number] (SNOMED CT) 08/05 Active 08/05 Tiffany Smalls RMA Viral hepatitis C Body mass index (BMI) 27.0-27.9; adult Z68.27 (ICD-10-CM ) 07/29 Removed 07/29 Bernie Ibanez APRN Body mass index [BMI] 27.0-27.9, adult Rhinorrhea 57382999 (SNOMED CT) 07/29 Active 07/29 Bernie Ibanez APRN Nasal discharge Body mass index (BMI) 28.0-28.9; adult Z68.28 (ICD-10-CM ) 07/22 Correction 07/23 Bernie Ibanez APRN Body mass index [BMI] 28.0-28.9, adult Nasal pain 798927601 (SNOMED CT) 07/29 Active 07/29 Bernie Ibanez APRN Pain of nose Body mass index (BMI) 28.0-28.9; adult Z68.28 (ICD-10-CM ) 07/22 Removed 07/23 Verónica Brown APRN Body mass index [BMI] 28.0-28.9, adult Body mass index (BMI) 27.0-27.9; adult Z68.27 (ICD-10-CM ) 07/17 Correction 07/17 Verónica Brown APRN Body mass index [BMI] 27.0-27.9, adult GERD (gastroesop hageal reflux disease) 673316822 (SNOMED CT) 07/22 Active 07/23 Verónica Brown APRN Gastroesophagea l reflux disease Counseling for nutrition Z71.3 (ICD-10-CM ) 07/17 Inactive 07/17 Lilia Mobley APRN Dietary counseling and surveillance Body mass index (BMI) 27.0-27.9; adult Z68.27 (ICD-10-CM ) 07/17 Removed 07/17 Lilia Mobley APRN Body mass index [BMI] 27.0-27.9, adult Insomnia 494385026 (SNOMED CT) 07/17 Active 07/17 Lilia Mobley APRN Insomnia Tobacco User 277033641 (SNOMED CT) 07/17 Active 07/17 Lilia Mobley APRN Tobacco user Depression 85325375 (SNOMED CT) 07/17 Active 07/17 Lilia Mobley APRN Depressive disorder Anxiety Disorder 142718911 (SNOMED CT) 07/17 Active 07/17 Lilia Mobley APRN Anxiety disorder Medications Medication Instructions Start Date Stop Date Generic Name NDC Provider MULTI-VITAMINS TABS Take 1 tablet by mouth once a day multivitamin 06588930141 Lilia Mobley APRN TRAZODONE HCL 100 MG TABS Take 1 tablet by mouth at bedtime trazodone 68119492211 Lilia Mobley APRN Vistaril 25 mg capsule Take 1 to 2 capsule by mouth at bedtime as needed for sleep hydroxyzine pamoate 18496987659 Bernie Ibanez EMMA AMITRIPTYLINE HCL 50 MG TABS Take 1 tablet by mouth every night amitriptyline 98215930285 Lilia Mobley APRN CLARITIN 10 MG TABS Take 1 tablet by mouth once a day loratadine 55831067964 Bernie Ibanez EMMA MUPIROCIN 2 % OINT Apply a small amount as directed once or twice a day for 7 to 10 days, to affected nostril. mupirocin 06618118103 Bernie Ibanez APRN Vistaril 25 mg capsule Take 1 to 2 capsule by mouth at bedtime as needed for sleep hydroxyzine pamoate 40578519651 Bernie Ibanez EMMA GOODSENSE NICOTINE 4 MG LOZG Hold 1 lozenge to inside of mouth (buccal) every two hours as needed Do not exceed 5 lozenges in 6 hours or 20 in 24 hours nicotine (polacrilex) 69822681370 Lilia Mobley APRN OMEPRAZOLE 20 MG CPDR Take 1 capsule by mouth once a day FOR ACID REFLUX omeprazole 79437617600 Verónica Brown APRN NICOTINE STEP 1 21 MG/24HR PT24 APPLY 1 PATCH TO SKIN EVERY MORNING DIRECTED REMOVE AND REPLACE PATCH DAILY FOR 6 TO 8 WEEKS. THEN DECREASE TO THE 14 MG PATCHES. nicotine 40954342377 Verónica Brown APRN GOODSENSE NICOTINE 4 MG LOZG Hold 1 lozenge to inside of mouth (buccal) every two hours as needed Do not exceed 5 lozenges in 6 hours or 20 in 24 hours nicotine (polacrilex) 15896655458 Liliarose Mobley EMMA TRAZODONE HCL 50 MG TABS Take 1 tablet by mouth at bedtime trazodone 32367109393 Tiffany PERKINS TRAZODONE HCL 100 MG TABS Take 1 tablet by mouth at bedtime trazodone 24279412630 Lilia Mobley APRN TRAZODONE HCL 50 MG TABS Take 1 tablet by mouth at bedtime trazodone 67750504867 Tiffany PERKINS BUPRENORPHINE HCL-NALOXONE HCL 8-2 MG SUBL buprenorphine-na loxone 45570009001 Tiffany PERKINS Medications Administered No information available. [...] in Blood ABS NEUTROPH 5517 CELLS/UL 10*3/uL 7629-5088 N Neutrophils [#/volume] in Blood MPV 12.1 [...] Plan of Care Type Date Detail Referral [facility], [address] [place] [address] [address], [place], [address] Referral excluded fr om report: Pending order T1 CBC with diff Pending order T1 CMP Pending order T1 Acute Hepatit s Panel Pending order T1 HIV 1/2 Ag & Ab 4th gen -consent required Pending order T1 TSH reflex to free T4 Pending order T1 HGBA1c Patient education Patient Educat ion Given Procedures Code Procedure Name Date Entry Date [facility]-[id number] Medication Reconciliation [place]PT II 4004F Patient screened for tobacco use and received tobacco cessation intervention CPT-3074F Most recent systolic blood pressure <130 mm Hg CPT-3078F Most recent diastoli c blood pressure <80 mm Hg [id number] Giving encouragement to exercise SCT-[id number] Dietary management education/guidance/counseling GASTRO [facility]-[id number] Medication Reconciliation CPT II 4004F Patient screened for tobacco use and received tobacco cessation intervention CPT-3075F Most recent systolic blood pressure 130-139 mm Hg CPT-3079F Most recent diastoli c blood pressure 80-89 mm Hg CPT-1159F Medication list docu mented in medical record CPT-1160F Review of all medica tions by a prescribing practitioner [facility] 6399 T1 CBC with diff [facility] 23983 T1 CMP [facility] 40962 T1 Acute Hepatits Panel 2021 [facility] 81082 T1 HIV 1/2 Ag & Ab 4 th gen -consent required [facility] 61610 T1 TSH reflex to free T4 05/10/24 [facility] 496 T1 HGBA1c SCT-[id number] Medication Reconciliation SCT-[id number] Giving encouragement to exercise CPT-3074F Most recent systolic blood pressure <130 mm Hg CPT-3078F Most recent diastoli c blood pressure <80 mm Hg CPT-1159F Medication list docu mented in medical record CPT-1160F Review of all medica tions by a prescribing practitioner SCT-[id number] Medication Reconciliation SCT-[id number] Giving encouragement to exercise SCT-[id number] Dietary management education/guidance/counseling CPT II 4004F Patient [...]
--- OUTSIDE RECORDS SUMMARY | 2024-11-30 06:10 | XMS_ITS | Clinical Summary ---
Author Organization [facility] Address [facility] [place] [address] Care Team Providers Care Trauma Therapist Name Role Phone Pcp, No Primary Care Provider [phone] Source Comments This information has been disclosed to you from confidential records protectedfrom disclosure by state law. You shall make no further disclosure of thisinformation without the specific, written, and informed release of theindividual to whom it pertains, or as otherwise permitted by law. A generalauthorization for the release of medical or other information is not sufficientfor the purposes of therelease of HIV test results or diagnoses. [id number] Allergies No known active allergies Medications [...] Immunization: Influenza (MyChart) (#1) 2024 Care Teams Trauma Therapist Relationship Specialty Start Date End Date Pcp, No No Address PCP - General 06/08/23
--- OUTSIDE RECORDS SUMMARY | 2024-11-30 06:10 | XMS_ITS | Clinical Summary ---
Author Organization [facility] Address [address], [address] [place] [address] Care Team Providers Care Coal Cager Name Role Phone Unavailable Primary Care Provider [...] Not on file Insurance [place]
--- NOTE | 2024-11-30 06:30 | NM_ITS ---
APPROVED REPORT Exam: Nuclear Stress Test Indication: soa..fatigue Patient Location: Outpatient Stress Tech: Mary Kate Ortiz ERNESTO Tech:ESPINOZA Pollock RT(R)(N) Ht: 5 ft 9 in Wt: 190 lbs HR: 60 bpm BP: 123/91 mmHg BSA: 2.02 m2 TID: 1.13 BMI: 28.0 History: soa..fatigue Procedure: Patient received 0.4 mg of intravenous Lexiscan, resting heart rate 60 bpm, resting blood pressure 123/91 mmHg, with Lexiscan maximum heart rate achieved was 60 bpm which is 85 % of the maximum predicted heart rate and blood pressure was 116/77 mmHg. With Lexiscan, patient denied any complaint of chest pain. Cardiac Stress and Resting SPECT Images: Cardiac Stress and Resting SPECT images were obtained using technetium 99m Myoview 31.3 mCi stress and 10.84 mCi at rest. Resting and stress imaging in supine and prone positions demonstrate no evidence of fixed or reversible perfusion defects. Gated imaging demonstrates normal global and regional LV systolic function. LVEF is calculated at 58%. Conclusion: No evidence of fixed or reversible perfusion defects. Gated imaging demonstrates normal global and regional LV systolic function. LVEF is calculated at 58%. Electronically signed by : Harmony Sandoval MD 11/30/2024 12:13:23
[2024-11-30] MEDS: ISOTOPE MYOVIEW (PER STUDY) 1 DOSE IV (09:26)
[2024-11-30] MEDS: SODIUM CHLORIDE 0.9% 10ML SYR (RAD ONLY) 10 ML IV ×2 (09:26)
== END 2024-11-30 23:59 | disposition home or self-care (01) ==
LOC: RAD 06:08
PROVIDERS: Visit Provider Physician Assistant
DX: I49.8 Other specified cardiac arrhythmias (principal); R94.31 Abnormal electrocardiogram [ECG] [EKG]; R06.02 Shortness of breath; R53.83 Other fatigue; R07.89 Other chest pain; Z95.0 Presence of cardiac pacemaker
CPT/HCPCS: 78452; 93017; 93018; A9502; J2785

== ENCOUNTER 2024-12-02 19:02 | Emergency (ER) | payer MEDICAID, SELFPAY ==
[2024-12-02] VITALS (7 sets, daily range): BP systolic 109–130; BP diastolic 74–95; PULSE 60–72; RESP 8–16; TEMP 36.7–36.8; O2SAT 94–100; BMI 25.8
--- NOTE | 2024-12-02 19:06 | ECG_ITS ---
APPROVED REPORT Exam: Resting ECG HR:59 bpm ECG Measurements Heart Rate 59 AXES CA 216 P 95 QRSd 100 QRS -6 QT 424 T -45 QTc 424 Conclusion ELECTRONIC ATRIAL PACEMAKER INDETERMINATE AXIS POSSIBLE RIGHT VENTRICULAR CONDUCTION DELAY [RSR (QR) IN V1/V2] MODERATE T-WAVE ABNORMALITY, CONSIDER ANTERIOR ISCHEMIA [-0.1+ mV T-WAVE IN V3/V4] MODERATE T-WAVE ABNORMALITY, CONSIDER INFERIOR ISCHEMIA [-0.1+ mV T-WAVE IN II/aVF] ABNORMAL ECG Electronically signed by : RAMÍREZ RODRIGUEZ, 12/03/2024 00:11:39
--- OUTSIDE RECORDS SUMMARY | 2024-12-02 19:07 | XMS_ITS | Clinical Summary ---
Author Organization [facility] Address [facility] [place] [address] Care Team Providers Care Computational Mathematician Name Role Phone Pcp, No Primary Care [...] therelease of HIV test results or diagnoses. [id number] Allergies No known active allergies Medications [...] Immunization: Influenza (MyChart) (#1) 2024 Care Teams Computational Mathematician Relationship Specialty Start Date End Date Pcp, No No Address PCP - General 06/08/23
--- OUTSIDE RECORDS SUMMARY | 2024-12-02 19:07 | XMS_ITS | Clinical Summary ---
Author Organization [facility] Address [address] [facility], [address] [place] [address] Care Team Providers Care Uncrater Name Role Phone Unavailable Primary Care Provider [...]
--- NOTE | 2024-12-02 19:51 | ED_ITS ---
Discharge Plan Disposition Patient Disposition: Home, Self-Care Prescriptions Prescriptions: No Action midodrine 5 mg tablet 5 mg PO TID Qty: 90 1RF Rx Instructions: do not give last dose of day after 6PM or within 4 hrs of bedtime Referrals Follow up/Referrals: Provider,MD Fabrice [Primary Care Provider, Medical] - See instructions Barber Pulido MD [Staff Physician, Cardiology] - See instructions Activity Restrictions/Add. Instructions Additional Instructions/Restrictions: At this time it was felt you are safe to be discharged home. If new or worsening symptoms please do not hesitate to return the emergency department. Please continue to follow-up with cardiology as discussed. Clinical Impressions Clinical Impression: Pre-syncope, Chest pain, SHAD (acute kidney injury) Instructions Patient Instructions: DI for Syncope in Adults (Fainting), DI for Syncope in Children (Fainting) Print Language Print Language: Polish Discharge ED Provider: Lamont Alvarez General Adult HPI General Chief complaint: Syncope Stated complaint: Weakness Time Seen by Provider: 12/02/24 19:18 History of Present Illness HPI narrative: Patient is a 54-year-old male with past medical history of atrial pacemaker who presents emergency department for evaluation of syncope. Patient had symptomatic bradycardia requiring pacemaker placement, he is also on midodrine for blood pressure support. He has had multiple episodes of presyncope always while standing and ambulating over the last few weeks. He has not had full syncope that resulted in trauma. Today he was standing when he had an episode of presyncope that caused him become concerned and presented for continued evaluation. He has associated mild substernal chest discomfort. No significant cough. He did not fully syncopize, no trauma, no other acute complaints at this time. Please note that above description of symptoms, in this electronic medical record under categorization of recalled from ER triage doctor by RN are reflective of an initial nursing assessment, however, is not reflective of my full history and physical exam that was personally taken and clarified. Consequentially, this preceding description of symptoms, which may include the patient's categorized chief complaint in the EMR, do not reflect my personal clinical impression, and the ultimate description of history of present illness and patient stated complaints should be deferred to this section of the note. Unless stated otherwise or congruent with this section of the note, additional signs, symptoms, or incongruence should be interpreted as inaccurate with my clinical impression. Related Data Previous Rx's ?Medication ?Instructions ?Recorded midodrine 5 mg tablet 5 mg PO TID #90 tabs 5 Allergies Allergy/AdvReac Type Severity Reaction Status Date / Time No Known Allergies Allergy Verified 11/23/24 11:55 [facility] Disclaimer: The information contained in this section may have been updated after the patient was seen, as this information can be updated by other users. Medical History Symptomatic bradycardia Atypical chest pain Patient left without being seen Chest pain Foreign body in finger-infected Drug abuse Transaminitis Chest pain Cauda equina syndrome Opioid dependence Fixation hardware in leg Surgical History Hx of exploratory laparotomy Family History Mother Diabetes Father Coronary artery disease Social History Smoking Status: Current every day smoker tobacco type: cigarettes packs per day: 2 alcohol intake: never substance use type: former substance user current occupational status: employed Travel in the last 8 weeks?: None Have you lived/traveled outside US in past 30 days?: No Contact w/someone who lives/traveled outside US past 30 days?: No Exposure to someone with infectious disease in past 14 days?: No Do you have a fever (greater than 100.4 F or 38 C)?: No Have you tested positive for COVID-19?: No Exposed to someone with COVID-19 in past 14 days?: No Do you have a sore throat?: No Do you have a cough?: No Do you have any weakness?: No Do you have any diarrhea?: No Are you experiencing any unusual bleeding?: No Do you have any muscle aches/pain?: No Do you have any abdominal pain?: No Are you experiencing loss of taste or smell?: No Other Medical History Have you received the Flu Vaccine for this season: No Have you received the Pneumonia Vaccine: No ROS Obtained: Yes Systems reviewed as appropriate & no additional complaints except as documented Physical Exam General General appearance: alert and in no apparent distress Head Head exam: atraumatic and normocephalic Eye Eye exam: Present PERRL and EOMI ENT ENT exam: Present mucous membranes moist Neck Neck exam: Present normal inspection Chest Chest inspection: Present normal inspection and symmetric chest wall rise Respiratory Respiratory exam: Present normal lung sounds bilaterally; Absent respiratory distress Cardiovascular Cardiovascular exam: Present regular rate and normal rhythm Abdominal Exam Abdominal exam: Present soft; Absent tenderness Extremities Exam Extremities exam: Present normal inspection; Absent tenderness Neurological Exam Neurological exam: Present alert Psychiatric Psychiatric exam: Present normal affect Skin Skin exam: Present warm and dry Medical Decision Making Medical Records Screening: Per USPSTF and CDC recommendations, given the prevalence of disease in our region, it is our hospital?s policy to screen for HIV and viral Hepatitis for all patients aged 18 and over and those with ongoing risk factors. Baljeet Inquiry Pt receiving controlled substance: No Vital Signs: 12/02/24 19:30 12/02/24 20:00 12/02/24 20:00 Temperature 98.2 F Temperature Source Oral Pulse Rate 61 60 Pulse Rate [Left] 72 Respiratory Rate 9 L 15 8 L Blood Pressure 113/84 130/90 Blood Pressure [Right Arm] 126/95 H Blood Pressure Mean [Right Arm] 105 Blood Pressure Source [Right Arm] Automatic Cuff Blood Pressure Position [Right Arm] Supine 02 Sat by Pulse Oximetry 94 L 98 95 Oxygen Delivery Method Room Air 12/02/24 20:30 12/02/24 21:00 12/02/24 21:30 Temperature Temperature Source Pulse Rate 62 60 60 Pulse Rate [Left] Respiratory Rate 9 L 10 L 12 Blood Pressure 120/87 109/74 L 121/79 Blood Pressure [Right Arm] Blood Pressure Mean [Right Arm] Blood Pressure Source [Right Arm] Blood Pressure Position [Right Arm] 02 Sat by Pulse Oximetry 95 100 100 Oxygen Delivery Method Lab Data Lab Results 12/02/24 19:25: WBC 13.1 H, RBC 5.56, Hgb 15.6, Hct 46.2, MCV 83.1, MCH 28.1, MCHC 33.8, RDW 12.9, Plt Count 226, MPV 11.0 H, Neut % (Auto) 77.0, Lymph % (Auto) 13.2, [place] % (Auto) 6.4, Eos % (Auto) 1.9, Baso % (Auto) 1.1, Neut # (Auto) 10.0 H, Lymph # (Auto) 1.7, [place] # (Auto) 0.8, Eos # (Auto) 0.3, Baso # (Auto) 0.2, Sodium 137, Potassium 4.4, Chloride 101, Carbon Dioxide 28, Anion Gap 12.4, BUN 24 H, Creatinine 1.90 H, Estimated Creat Clear 50, Estimated GFR 37 L, Est GFR ( Amer) 45 L, Glucose 84, Calcium 9.7, Magnesium 1.8, Total Bilirubin 0.6, AST 29, ALT 14, Alkaline Phosphatase 67, Troponin I < 0.01, N T-Pro-B Natriuret Pep 435 H, Total Protein 8.3 H, Albumin 4.7, Globulin 3.6 H, Albumin/Globulin Ratio 1.3 12/02/24 22:38: Troponin I < 0.01 12/02/24 19:25 12/02/24 19:25 Orders (Tests/Meds): ED MEDICATIONS Discontinued Medications Generic Name Dose Route Start Last Admin Trade Name Freq PRN Reason Stop Dose Admin Aspirin 324 mg 12/02/24 19:57 12/02/24 20:20 Aspirin 81mg Chewable Tablet PO 12/02/24 19:58 324 mg ONCE ONE Administration Lactated Ringer's 1,000 mls @ 999 mls/hr 12/02/24 22:16 12/02/24 22:27 Lactated Ringer's 1000 Ml Bag IV 12/02/24 23:16 999 mls/hr .Q1H1M ONE Administration Iopamidol 80 ml 12/02/24 20:37 12/02/24 20:38 Iopamidol-370 (76%);100ml Bottle IV 12/02/24 20:38 80 ml ONCE ONE Administration Sodium Chloride 50 ml 12/02/24 20:37 12/02/24 20:38 0.9 % Sodium Chloride 50 Ml Vial IV 12/02/24 20:38 50 ml ONCE ONE Administration Sodium Chloride 10 ml 12/02/24 20:37 12/02/24 20:38 Sodium Chloride 0.9% 10ml Syr (Rad Only) IV 12/02/24 20:38 10 ml ONCE ONE Administration ORDERS Category Date Time Status CT angio chest - dissection Stat Cat Scan 12/02/24 19:56 Completed BNP [NT Pro Brain Natriuretic Pep.] Stat Lab 12/02/24 19:25 Completed CBC w/Auto Diff [Complete Blood Count Auto Diff] Stat Lab 12/02/24 19:25 Completed CMP [Comprehensive Metabolic Panel] Stat Lab 12/02/24 19:25 Completed MG [Magnesium] Stat Lab 12/02/24 19:25 Completed Trop I [Troponin I] Stat Lab 12/02/24 19:25 Completed Troponin I Q3H Lab 12/02/24 22:38 Completed Troponin I Q3H Lab 12/03/24 02:00 Ordered ECG Data Tracing #1: Independently interpreted by me rate is 59, rhythm is regular, no ST elevation in anatomical contiguous leads, atrial paced, QTc 44. Medical Decision Narrative: In summary patient is a 54-year-old male with past medical history described above presents emergency department for evaluation of presyncope while standing in setting of atrial pacemaker and chest pain. Patient is hemodynamically stable nontoxic-appearing upon arrival, afebrile. Workup we conducted with hematologic labs EKG, CT angio chest. Show inventions include aspirin. Initial workup reviewed by me, hematologic labs have mild leukocytosis no transfusable anemia, there is an SHAD present which will be volume repleted, initial troponin undetectably low. CTA chest no dissection or pulmonary embolism. EKG nonischemic and atrial pacemaker has a base rate of 60 and max track rate of 130, it was interrogated and there are 0 episodes, it appears to be appropriately pacing on EKG. serial troponins are nonactionable orthostatic vital signs negative patient did not have any significant dizziness upon standing. It may be that he was little bit dehydrated regardless patient will continue to follow-up with cardiology on outpatient basis as essentially all emergencies have been ruled out and patient is appropriate for outpatient management at this time. Critical Care Critical Care Time Critical Care Time: No
--- NOTE | 2024-12-02 19:56 | CT_ITS ---
PROCEDURE INFORMATION: Exam: CTA Chest With Contrast Exam date and time: 12/02/2024 8:39 PM Age: 54 years old Clinical indication: Other: Syncope; Other: Chest pain; Additional info: Cp syncope TECHNIQUE: Imaging protocol: Computed tomographic angiography of the chest with contrast. Exam focused on the arteries. 3D rendering (Not supervised by radiologist): MIP and/or 3D reconstructed images were created by the technologist. Radiation optimization: All CT scans at this facility use at least one of these dose optimization techniques: automated exposure control; mA and/or kV adjustment per patient size (includes targeted exams where dose is matched to clinical indication); or iterative reconstruction. Contrast material: ISO; Contrast volume: 80 ml; Contrast route: INTRAVENOUS (IV); COMPARISON: CT ANGIO CHEST PE PROTOCOL 11/22/2024 2:02 PM FINDINGS: Pulmonary arteries: Normal. No pulmonary emboli. Aorta: Unremarkable. No aortic aneurysm. No aortic dissection. Lungs: Unremarkable. No consolidation. No masses. Pleural spaces: Unremarkable. No pneumothorax. No pleural effusion. Heart: Unremarkable. No cardiomegaly. No pericardial effusion. Lymph nodes: Unremarkable. No enlarged lymph nodes. Bones/joints: Old healed fracture T12. Fusion T11 through L1. Soft tissues: Unremarkable. IMPRESSION: Old healed fracture T12. Fusion T11 through L1.
[2024-12-02 20:03] LABS: Hematocrit 46.2 % (42.0-52.0); Hemoglobin 15.6 g/dL (14.1-18.0); Immature Granulocytes % 0.4 %; Mean Corpuscular HGB Conc 33.8 g/dL (31.8-35.4); Mean Corpuscular Hemoglobin 28.1 pg (27.0-31.2); Mean Corpuscular Volume 83.1 fl (80-94); Nucleated Red Blood Cells % 0 %; Platelet Count 226 K/mm3 (142-424); Red Blood Count 5.56 M/mm3 (4.60-6.20); Red Cell Distribution Width-SD 39.0 fL; White Blood Count 13.1 K/mm3 (4.8-10.8)
[2024-12-02 20:06] LABS: Albumin Level 4.7 g/dl (3.5-5.0); Chloride 101 mmol/L (98-107); Sodium 137 mmol/L (136-145)
[2024-12-02 20:07] LABS: Potassium 4.4 mmoL/L (3.5-5.1)
[2024-12-02 20:09] LABS: Alanine Aminotransferase 14 U/L (12-78); Albumin/Globulin Ratio 1.3 (1.1-1.8); Alkaline Phosphatase 67 U/L (38-126); Anion Gap 12.4 mEq/L (5-15); Aspartate Amino Transferase 29 U/L (17-59); Bilirubin,Total 0.6 mg/dl (0.2-1.3); Blood Urea Nitrogen 24 mg/dl (9-20); Carbon Dioxide 28 mmol/L (22.0-30.0); Creatinine Clearance Estimated 50 mL/min (50-200); Creatinine,Serum 1.90 mg/dl (0.66-1.25); Estimated Glomerular Filt Rate 37 ml/min (>60); GFR (African American) 45 ML/MIN (>60); Globulin 3.6 g/dL (1.3-3.2); Magnesium 1.8 mg/dl (1.6-2.3); Total Protein,Serum 8.3 g/dl (6.3-8.2)
[2024-12-02 20:10] LABS: Calcium 9.7 mg/dl (8.4-10.2); Glucose 84 mg/dl (74-100)
[2024-12-02 20:19] LABS: NT Pro Brain Natriuretic Pep. 435 pg/mL (0-125)
[2024-12-02] MEDS: ASPIRIN 81MG CHEWABLE TABLET 324 MG PO (20:20)
[2024-12-02 20:24] LABS: Troponin I < 0.01 ng/ml (0.00-0.034)
[2024-12-02] MEDS: 0.9 % SODIUM CHLORIDE 50 ML VIAL IV (20:38)
[2024-12-02] MEDS: IOPAMIDOL-370 (76%);100ML BOTTLE 80 ML IV (20:38)
[2024-12-02] MEDS: SODIUM CHLORIDE 0.9% 10ML SYR (RAD ONLY) 10 ML IV (20:38)
[2024-12-02] MEDS: LACTATED RINGERS 1000ML 1,000 ML 999 ML IV (22:27)
[2024-12-02 23:21] LABS: Troponin I < 0.01 ng/ml (0.00-0.034)
== END 2024-12-03 01:04 | disposition home or self-care (01) ==
PROVIDERS: Emergency Provider Emergency Medicine
DX: R07.89 Other chest pain (principal); N17.9 Acute kidney failure, unspecified; R55 Syncope and collapse; F17.210 Nicotine dependence, cigarettes, uncomplicated
CPT/HCPCS: 71275; 80053; 83735; 83880; 84484; 85025; 93005; 96365; 99284; 99285; J7120; Q9967